=== PATIENT | female | born 1955 | race Hispanic/Latino ===

== ENCOUNTER 2024-12-23 13:36 | Emergency (ER) | payer OTHER ==
--- OUTSIDE RECORDS SUMMARY | 2024-12-23 13:40 | XMS REPORT | Continuity of Care Document ---
Author Name Unknown Address [address] [facility] [address] [place] [address] [facility] Address [address] [facility] [address] [place] [address] Care Team Providers Care Manager Instrumentation Name Role Phone Rachel Krueger MD Primary Care Physician [phone] Rachel Krueger Attending Clinician Unavailable Malissa Up Attending Clinician Unavailable NIMESH DOMINGUEZ Attending Clinician Unavailab Zeke Eason DPM Attending Clinician + [phone] ZEKE HAYNES Attending Clinician Unavail able MYA GONZALEZ Attending Clinician Unavailable Mya Gonzalez PA-C Attending Clinician [phone] Unknown, Attending Attending Clinician Unavailab NORMA Lainez Attending Clinician Unavailable Norma Lynn MD Attending Clinician [phone] Doctor Unassigned, [place] Attending Clinician U Nimesh Stubbs MD Attending Clinician [phone] Lee Ann Miramontes Attending Clinician [phone] LEE ANN KEVIN Attending Clinician Unavailable SATINDER WILKINS Attending Clinician Unavailable Therapy, [facility] Covid Infusion Attending Clinician Unavailable Satinder Wilkins MD Attending Clinician Edura Orosco Attending Clinician [phone] Only, [facility] Test Attending Clinician Unavailable Zoya Vieira MD Attending Clinician [phone] Lab, [facility] Fam Pob I Attending Clinician Unavailab ZOYA Calvillo Attending Clinician UnavailSerge Aguirre MD Attending Clinician [phone] NIMESH DOMINGUEZ Admitting Clinician Unavailab kaleigh Payers Payer Name Policy Type Policy Number Effective Date Expirati on Date Source [facility] [employer] [place] [id number] 2019 00:00:00 MEDICARE PART A \T\ B [id number] 2021 00:00:00 Memeoirs [id number] 2015 00:00:00 [employer] Medicare [id number] 2019 00:00:00 MEDICARE PART A AND B Medicare [id number] MEDICARE [place]OV[place] MB [id number] 2019 00:00:00 [facility] Medicare Replace [id number] 2020 00:00:00 [facility] Problems Condition Name Condition Details Condition Category Status Onset Date Resolution Date Last Treatment Date Treating Clinician Comments Source Keloid of skin Keloid of skin Disease Active 01-20 00:00: 00 Overview: Formattin g of this note might be different from the original. Added automatic ally from request for surgery [id number] [facility] Small bowel mass Small bowel mass Disease Active 10-05 00:00: 00 [facility] Perforated bowel Perforated bowel Disease Active 10-04 00:00: 00 [facility] Abdominal pain Abdominal pain Disease Active 10-04 00:00: 00 [facility] [id number] Mixed hyperlipid emia Problem [facility] Allergic rhinitis Non-season al allergic rhinitis, unspecifie d trigger Problem [facility] [id number] Moderate major depression Problem [facility] [id number] Depression with anxiety Problem [facility] [id number] Essential hypertensi on Problem [facility] [id number] Eye exam, routine Problem [facility] [id number] Gastroesop hageal reflux disease without esophagiti s Problem [facility] [id number] 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 Problem [facility] Generalize d osteoarthr itis Generalize d osteoarthr itis Problem [facility] [id number] Other chronic pain Problem [facility] Allergies, Adverse Reactions, Alerts Allergy Name Allergy Type Status Severity Reaction(s) Onset Date Inactive Date Treating Clinician Comments Source Codeine Propensi ty to adverse reaction s Active GI intolerance 10-12 00:00: 00 David Kim Codeine Propensi ty to adverse reaction s Active Nausea and/or Vomiting 10-04 00:00: 00 [facility] CODEINE DRUG INGREDI Active N/V 10-04 00:00: 00 [facility] Social History Social Habit Start Date Stop Date Quantity Comments Source ASSERTION Possible [facility] Gender identity Tiago ross Kim Sexual orientation [facility] History of Tobacco Use [facility] Sex Assigned At [facility] Alcohol intake 2023-12-22 00:00:00 2023-12-22 00:00:00 0 /d [facility] History of Social function 2023-12-22 00:00:00 2023-12-22 00:00:00 [facility] Exposure to SARS-CoV-2 (event) 2022-01-10 00:00:00 2022-01-20 13:05:00 Not sure [facility] Tobacco use and exposure 2021-10-29 00:00:00 2021-10-29 00:00:00 Smokeless tobacco non-user [facility] Smoking Status Start Date Stop Date Source Tobacco smoking consumption unknown [facility] Former Smoker 2024-09-13 00:00:00 2024-09-13 00:00:00 [facility] Current Smoker 2024-03-01 00:00:00 [facility] Occasional tobacco smoker 2021-10-29 00:00:00 [facility] Medications Ordered Medication Name Filled Medication Name Start Date Stop Date Current Medication? Ordering Clinician Indication Dosage Frequency Signature (SIG) Comments Components Source meloxicam (Mobic) 15 MG tablet meloxicam (Mobic) 15 MG tablet 10-12 00:00: 00 11-11 23:59 :00 Yes 15mg Q24H Take 1 tablet by mouth daily as needed for moderate pain (4-6) or mild pain (1-3). Only take if needed for foot pain David Kim Olopatadine HCl 0.2 % Olopatadine HCl 0.2 % 2023-09 00:00: 00 No 1{drop_ into_af fected_ eye} QD Olopatadin e HCl 0.2 % atorvastati n 20 mg tablet 12-21 13:58: 19 Yes 1 tablet Orally Once a day for 90 days [facility] losartan 50 mg tablet 12-21 13:58: 19 Yes TAKE 1 TABLET BY MOUTH TWICE DAILY for 90 days [facility] cetirizine 10 mg tablet 12-21 00:00: 00 Yes [id number] 10mg Take 1 tablet by mouth in the morning. [facility] fluticasone propionate 50 mcg/actuati on nasal spray 12-21 00:00: 00 Yes [id number] 2{spray } Use 2 Sprays in each nostril in the morning. [facility] albuterol 90 mcg/actuati on inhaler 05-10 00:00: 00 Yes [id number] 2{puff} Inhale 2 Puffs every 4 (four) hours as needed for Wheezing or Shortness of Breath. [facility] benzonatate 100 mg capsule 05-10 00:00: 00 Yes [id number] 100mg Take 1 capsule by mouth 3 (three) times daily as needed for Cough. [facility] dextrometho rphan-guaif enesin 10-100 mg/5 mL solution 05-10 00:00: 00 Yes [id number] 5mL Take 5 mL by mouth every 6 (six) hours as needed for Cough. [facility] ondansetron 4 mg disintegrat ing tablet 05-10 00:00: 00 Yes [id number] 4mg Take 1 tablet by mouth every 12 (twelve) hours as needed for Nausea and Vomiting (N/V). [facility] cephALEXin 500 mg capsule 03-05 00:00: 00 Yes [id number] 500mg Take 1 capsule by mouth 3 (three) times daily. [facility] naproxen sodium (ANAPROX) 220 mg tablet 10-23 11:21: 57 Yes 220mg Take 220 mg by mouth 2 (two) times daily with meals. [facility] acetaminoph en-codeine (TYLENOL #3) 300-30 mg tablet 10-10 00:00: 00 Yes 1{tbl} Take 1 Tab by mouth every 4 (four) hours as needed for Pain (scale 1-3). [facility] ibuprofen (MOTRIN) 800 mg tablet 10-10 00:00: 00 Yes 800mg Take 1 Tab by mouth every 6 (six) hours as needed for Pain (scale 1-3). [facility] cyclobenzap rine (FLEXERIL) 5 mg tablet 10-10 00:00: 00 Yes 5mg Take 1 Tab by mouth 3 (three) times daily as needed for Muscle Spasms. [facility] Triamcinolo ne Acetonide 0.1 % Triamcinolo ne Acetonide 0.1 % No 1{appli cation_ to_affe cted_ar ea} BID Triamcinol one Acetonide 0.1 % Ibuprofen 200 MG Ibuprofen 200 MG No TID Ibuprofen 200 MG Cetirizine HCl 10 MG Cetirizine HCl 10 MG No 1{table t} QD Cetirizine HCl 10 MG Fluticasone Propionate 50 MCG/ACT Fluticasone Propionate 50 MCG/ACT No 1{spray _in_eac h_nostr il} QD Fluticason e Propionate 50 MCG/ACT Immunizations Ordered Immunization Name Filled Immunization Name Date Status Comments Source Fluad (IIV) - SDS - 0.5mL Fluad (IIV) - SDS - 0.5mL 2021-07-11 10:22:00 Completed [facility] FluAD FluAD 2021-07-11 10:22:00 Completed [facility] FluAD FluAD 2021-07-11 10:22:00 Completed [facility] Prevnar 13 (PCV13) Prevnar 13 (PCV13) 2020-12-06 11:03:00 Completed [facility] Prevnar 13 (PCV13) Prevnar 13 (PCV13) 2020-12-06 11:03:00 Completed [facility] Prevnar 13 (PCV13) Prevnar 13 (PCV13) 2020-12-06 11:03:00 Completed [facility] Influenza Virus Vaccine Quad IM 3+ YRS 2015-10-10 00:00:00 Completed [facility] Influenza Virus Vaccine Quad IM 3+ YRS 2015-10-10 00:00:00 Completed [facility] Influenza Virus Vaccine Quad IM 3+ YRS 2015-10-10 00:00:00 Completed [facility] Influenza Virus Vaccine Quad IM 3+ YRS 2015-10-10 00:00:00 Completed [facility] Influenza Virus Vaccine Quad IM 3+ YRS Unknown Completed [facility] Influenza Virus Vaccine Quad IM 3+ YRS Unknown Completed [facility] FluAD FluAD Unknown Completed [facility] Prevnar 13 (PCV13) Prevnar 13 (PCV13) Unknown Completed [facility] FluAD FluAD Unknown Completed [facility] Prevnar 13 (PCV13) Prevnar 13 (PCV13) Unknown Completed [facility] FluAD FluAD Unknown Completed [facility] Prevnar 13 (PCV13) Prevnar 13 (PCV13) Unknown Completed [facility] FluAD FluAD Unknown Completed [facility] Prevnar 13 (PCV13) Prevnar 13 (PCV13) Unknown Completed [facility] FluAD FluAD Unknown Completed [facility] Prevnar 13 (PCV13) Prevnar 13 (PCV13) Unknown Completed [facility] FluAD FluAD Unknown Completed [facility] Prevnar 13 (PCV13) Prevnar 13 (PCV13) Unknown Completed [facility] FluAD FluAD Unknown Completed [facility] Prevnar 13 (PCV13) Prevnar 13 (PCV13) Unknown Completed [facility] FluAD FluAD Unknown Completed [facility] Prevnar 13 (PCV13) Prevnar 13 (PCV13) Unknown Completed [facility] FluAD FluAD Unknown Completed [facility] Prevnar 13 (PCV13) Prevnar 13 (PCV13) Unknown Completed [facility] FluAD FluAD Unknown Completed [facility] Prevnar 13 (PCV13) Prevnar 13 (PCV13) Unknown Completed [facility] FluAD FluAD Unknown Completed [facility] Prevnar 13 (PCV13) Prevnar 13 (PCV13) Unknown Completed [facility] Vital Signs Vital Name Observation Time Observation Value Comments S ource height 2024-09-16 13:40:00 63.00 [in_i] Com [facility] weight 2024-09-16 13:40:00 188 [lb_av] Comm on [facility] temperature 2024-09-16 13:40:00 97.1 [degF] Com [facility] bmi 2024-09-16 13:40:00 33.3 kg/m2 Commo n [facility] oximetry 2024-09-16 13:40:00 98 % Commo n [facility] respiratory rate 2024-09-16 13:40:00 16 /min [facility] blood pressure systolic 2024-09-16 13:40:00 142 mm[Hg] Common [facility] blood pressure diastolic 2024-09-16 13:40:00 80 mm[Hg] [facility] height 2024-06-14 14:00:00 63.00 [in_i] Com [facility] weight 2024-06-14 14:00:00 195 [lb_av] Comm on [facility] temperature 2024-06-14 14:00:00 97.5 [degF] Com [facility] bmi 2024-06-14 14:00:00 34.54 kg/m2 Comm on [facility] oximetry 2024-06-14 14:00:00 96 % Commo n [facility] respiratory rate 2024-06-14 14:00:00 16 /min [facility] blood pressure systolic 2024-06-14 14:00:00 132 mm[Hg] [facility] blood pressure diastolic 2024-06-14 14:00:00 76 mm[Hg] [facility] height 2024-06-14 14:00:00 63.00 [in_i] Com [facility] weight 2024-06-14 14:00:00 195 [lb_av] Comm on [facility] temperature 2024-06-14 14:00:00 97.5 [degF] Com [facility] bmi 2024-06-14 14:00:00 34.54 kg/m2 Comm on [facility] oximetry 2024-06-14 14:00:00 96 % Commo n [facility] respiratory rate 2024-06-14 14:00:00 16 /min [facility] blood pressure systolic 2024-06-14 14:00:00 132 mm[Hg] [facility] blood pressure diastolic 2024-06-14 14:00:00 76 mm[Hg] Common [facility] height 2024-03-09 15:40:00 63.00 [in_i] Com [facility] weight 2024-03-09 15:40:00 200 [lb_av] Comm on [facility] temperature 2024-03-09 15:40:00 97.2 [degF] Com [facility] bmi 2024-03-09 15:40:00 35.42 kg/m2 Comm on [facility] oximetry 2024-03-09 15:40:00 96 % Commo n [facility] respiratory rate 2024-03-09 15:40:00 16 /min [facility] blood pressure systolic 2024-03-09 15:40:00 136 mm[Hg] Common [facility] blood pressure diastolic 2024-03-09 15:40:00 82 mm[Hg] Common [facility] height 2024-02-01 14:00:00 63.00 [in_i] Com [facility] weight 2024-02-01 14:00:00 201.6 [lb_av] Co mmon [facility] temperature 2024-02-01 14:00:00 97.2 [degF] Com [facility] bmi 2024-02-01 14:00:00 35.71 kg/m2 Comm on [facility] oximetry 2024-02-01 14:00:00 99 % Commo n [facility] respiratory rate 2024-02-01 14:00:00 16 /min Common [facility] blood pressure systolic 2024-02-01 14:00:00 138 mm[Hg] Common [facility] blood pressure diastolic 2024-02-01 14:00:00 82 mm[Hg] Common [facility] height 2024-02-01 14:40:00 63.00 [in_i] Com [facility] weight 2024-02-01 14:40:00 201.6 [lb_av] Co mmon [facility] temperature 2024-02-01 14:40:00 97.2 [degF] Com mon [facility] bmi 2024-02-01 14:40:00 35.71 kg/m2 Comm on [facility] oximetry 2024-02-01 14:40:00 99 % Commo n [facility] respiratory rate 2024-02-01 14:40:00 16 /min Common [facility] blood pressure systolic 2024-02-01 14:40:00 138 mm[Hg] [facility] blood pressure diastolic 2024-02-01 14:40:00 82 mm[Hg] [facility] Systolic blood pressure 2023-12-22 18:58:00 158 mm[Hg] [facility] Diastolic blood pressure 2023-12-22 18:58:00 87 mm[Hg] [facility] Heart rate 2023-12-22 18:57:00 85 /min [facility] Body temperature 2023-12-22 18:57:00 36.56 [facility] Respiratory rate 2023-12-22 18:57:00 14 /min [facility] Body weight 2023-12-22 18:57:00 90.719 kg [facility] BMI 2023-12-22 18:57:00 37.79 kg/m2 [facility] Oxygen saturation in Arterial blood by Pulse oximetry 2023-12-22 18:57:00 95 /min [facility] height 2023-08-28 15:00:00 63.00 [in_i] Com [facility] weight 2023-08-28 15:00:00 196.2 [lb_av] Co mmon [facility] temperature 2023-08-28 15:00:00 97.2 [degF] Com [facility] bmi 2023-08-28 15:00:00 34.75 kg/m2 Comm on [facility] oximetry 2023-08-28 15:00:00 96 % Commo n [facility] respiratory rate 2023-08-28 15:00:00 16 /min Common [facility] blood pressure systolic 2023-08-28 15:00:00 132 mm[Hg] Common [facility] blood pressure diastolic 2023-08-28 15:00:00 72 mm[Hg] [facility] height 2023-05-28 11:20:00 63.00 [in_i] Com [facility] weight 2023-05-28 11:20:00 192.6 [lb_av] Co [facility] temperature 2023-05-28 11:20:00 97.0 [degF] Com [facility] bmi 2023-05-28 11:20:00 34.11 kg/m2 Comm on [facility] oximetry 2023-05-28 11:20:00 97 % Commo n [facility] respiratory rate 2023-05-28 11:20:00 16 /min Common [facility] blood pressure systolic 2023-05-28 11:20:00 128 mm[Hg] [facility] blood pressure diastolic 2023-05-28 11:20:00 78 mm[Hg] Common [facility] height 2023-02-27 13:00:00 63.00 [in_i] Com [facility] weight 2023-02-27 13:00:00 193.2 [lb_av] Co mmon [facility] bmi 2023-02-27 13:00:00 34.22 kg/m2 Comm on [facility] oximetry 2023-02-27 13:00:00 97 % Commo n [facility] respiratory rate 2023-02-27 13:00:00 16 /min Common [facility] blood pressure systolic 2023-02-27 13:00:00 134 mm[Hg] Common [facility] blood pressure diastolic 2023-02-27 13:00:00 78 mm[Hg] [facility] height 2023-01-07 09:00:00 63.00 [in_i] Com [facility] weight 2023-01-07 09:00:00 193 [lb_av] Comm on [facility] temperature 2023-01-07 09:00:00 98.0 [degF] Com [facility] bmi 2023-01-07 09:00:00 34.18 kg/m2 Comm on [facility] oximetry 2023-01-07 09:00:00 97 % Commo n [facility] respiratory rate 2023-01-07 09:00:00 17 /min [facility] blood pressure systolic 2023-01-07 09:00:00 134 mm[Hg] [facility] blood pressure diastolic 2023-01-07 09:00:00 82 mm[Hg] [facility] height 2023-01-07 09:00:00 63.00 [in_i] Com [facility] weight 2023-01-07 09:00:00 193 [lb_av] Comm on [facility] temperature 2023-01-07 09:00:00 98.0 [degF] Com [facility] bmi 2023-01-07 09:00:00 34.18 kg/m2 Comm on [facility] oximetry 2023-01-07 09:00:00 97 % Commo n [facility] respiratory rate 2023-01-07 09:00:00 17 /min Common [facility] blood pressure systolic 2023-01-07 09:00:00 134 mm[Hg] [facility] blood pressure diastolic 2023-01-07 09:00:00 82 mm[Hg] [facility] height 2022-08-11 11:00:00 63.00 [in_i] Com [facility] weight 2022-08-11 11:00:00 193.6 [lb_av] Co mmon [facility] temperature 2022-08-11 11:00:00 97.5 [degF] Com [facility] bmi 2022-08-11 11:00:00 34.29 kg/m2 Comm on [facility] oximetry 2022-08-11 11:00:00 97 % Commo n [facility] respiratory rate 2022-08-11 11:00:00 16 /min [facility] blood pressure systolic 2022-08-11 11:00:00 128 mm[Hg] Common [facility] blood pressure diastolic 2022-08-11 11:00:00 64 mm[Hg] [facility] height 2022-03-06 15:00:00 63.00 [in_i] Com [facility] weight 2022-03-06 15:00:00 191.2 [lb_av] Co mmon [facility] temperature 2022-03-06 15:00:00 98.8 [degF] Com [facility] bmi 2022-03-06 15:00:00 33.87 kg/m2 Comm on [facility] oximetry 2022-03-06 15:00:00 97 % Commo n [facility] respiratory rate 2022-03-06 15:00:00 17 /min Common [facility] blood pressure systolic 2022-03-06 15:00:00 124 mm[Hg] [facility] blood pressure diastolic 2022-03-06 15:00:00 76 mm[Hg] [facility] height 2022-03-06 16:00:00 63.00 [in_i] Com [facility] weight 2022-03-06 16:00:00 191.2 [lb_av] Co mmon [facility] temperature 2022-03-06 16:00:00 98.8 [degF] Com mon [facility] bmi 2022-03-06 16:00:00 33.87 kg/m2 Comm on [facility] oximetry 2022-03-06 16:00:00 97 % Commo n [facility] blood pressure systolic 2022-03-06 16:00:00 124 mm[Hg] Common [facility] blood pressure diastolic 2022-03-06 16:00:00 76 mm[Hg] [facility] height 2022-02-06 11:00:00 63.00 [in_i] Com [facility] weight 2022-02-06 11:00:00 189 [lb_av] Comm on [facility] temperature 2022-02-06 11:00:00 97.7 [degF] Com [facility] bmi 2022-02-06 11:00:00 33.48 kg/m2 Comm on [facility] oximetry 2022-02-06 11:00:00 97 % Commo n [facility] respiratory rate 2022-02-06 11:00:00 22 /min [facility] blood pressure systolic 2022-02-06 11:00:00 122 mm[Hg] [facility] blood pressure diastolic 2022-02-06 11:00:00 80 mm[Hg] [facility] Body weight 2022-01-20 19:00:00 85.73 kg [facility] BMI 2022-01-20 19:00:00 35.71 kg/m2 [facility] Systolic blood pressure 2022-01-20 18:19:00 144 mm[Hg] [facility] Diastolic blood pressure 2022-01-20 18:19:00 96 mm[Hg] [facility] Heart rate 2022-01-20 18:19:00 86 /min [facility] Respiratory rate 2022-01-20 18:19:00 18 /min [facility] Body height 2022-01-20 18:19:00 154.9 cm [facility] Oxygen saturation in Arterial blood by Pulse oximetry 2022-01-20 18:19:00 96 /min [facility] height 2021-11-14 08:00:00 63.00 [in_i] Com [facility] weight 2021-11-14 08:00:00 191 [lb_av] Comm on [facility] temperature 2021-11-14 08:00:00 97.7 [degF] Com [facility] bmi 2021-11-14 08:00:00 33.83 kg/m2 Comm on [facility] oximetry 2021-11-14 08:00:00 96 % Commo n [facility] respiratory rate 2021-11-14 08:00:00 18 /min [facility] blood pressure systolic 2021-11-14 08:00:00 138 mm[Hg] [facility] blood pressure diastolic 2021-11-14 08:00:00 82 mm[Hg] [facility] height 2021-07-11 10:00:00 63.00 [in_i] Com [facility] weight 2021-07-11 10:00:00 186 [lb_av] Comm on [facility] temperature 2021-07-11 10:00:00 97.8 [degF] Com [facility] bmi 2021-07-11 10:00:00 32.94 kg/m2 Comm on [facility] oximetry 2021-07-11 10:00:00 97 % Commo n [facility] respiratory rate 2021-07-11 10:00:00 19 /min [facility] blood pressure systolic 2021-07-11 10:00:00 158 mm[Hg] Common [facility] blood pressure diastolic 2021-07-11 10:00:00 91 mm[Hg] [facility] Procedures Procedure Date / Time Performed Performing Clinician Source REFERRAL- REQUEST/RESPONSE 2022-03-04 05:01:00 Doctor Unassigned, [place] [facility] INSURANCE CORRESPONDENCE 2021-11-15 06:01:00 Doc tor Unassigned, [place] [facility] Encounters Start Date/Time End Date/Time Encounter Type Admission Type Attending Clinicians Care Facility Care Department Encounter ID Source 2024-09-15 14:20:00 Outpatient KruegerRachel posada [facility] [id number] [facility] 2023-08-27 14:05:00 Outpatient KruegerRachel STLMLC STLMLC [id number] [facility] 2023-05-27 14:14:00 Outpatient Rachel Krueger STLMLC STLMLC [id number] [facility] 2022-12-22 15:50:00 Outpatient Rachel Krueger STLMLC STLMLC [id number] [facility] 2022-12-17 13:38:00 Outpatient Rachel Krueger STLMLC STLMLC [id number] [facility] 2022-10-28 15:30:02 Outpatient Rachel Krueger STLMLC STLMLC [id number] [facility] 2022-08-06 10:43:01 Outpatient Up Malissa STLMLC STLMLC [id number] 65445 [facility] 2022-03-12 12:16:07 Outpatient NIMESH SOLIS [facility] [id number] [facility] 2022-02-04 08:46:03 Outpatient Malissa Up STLMLC STLMLC [id number] [facility] 2022-01-20 14:20:12 Outpatient NIMESH DOMINGUEZ [facility] [id number] [facility] 2021-11-13 10:14:03 [facility] [id number] [facility] 2021-10-09 12:45:47 [facility]patient UpMalissa [facility] [id number] 02359 [facility] 2021-10-09 12:44:30 Outpatient UpMalissa anne [facility] [id number] [facility] 2021-07-15 18:31:35 Emergency [facility] [id number] [facility] 2024-11-16 00:00:00 2024-11-16 14:52:23 Refill IvyZeke [facility] 1.2.840.114 350.1.13.70 8.2.7.2.686 [id number] David [facility] 2024-10-26 13:32:30 2024-10-26 14:28:32 Outpatient Elective SELCHERYLTZEKE EOUT [facility] [id number] [facility] 2024-10-26 13:30:00 2024-10-26 14:28:32 Office Visit SelleonorZeke [facility] 1.2.840.114 350.1.13.70 8.2.7.2.686 [id number] [facility] 2024-10-12 13:40:00 2024-10-12 13:54:00 Consult IvyZeke Warren [facility] 1..840.114 350.1.13.70 8.2.7.2.686 [id number] David schwartz [facility] 2024-10-12 13:03:03 2024-10-12 13:54:00 Outpatient Elective SELBSZEKE Melgar MendelOUT MHEOUT [id number] [facility] 2024-09-26 14:11:53 2024-09-26 14:11:53 Outpatient Elective IVYZEKE MHEOUT EOUT [id number] [facility] 2024-09-16 00:00:00 2024-09-16 00:00:00 OFFICE VISIT ESTAB PT LEVEL 4 STLMLC STLMLC [id number] [facility] 2024-06-14 00:00:00 2024-06-14 00:00:00 OFFICE VISIT ESTAB PT LEVEL 4 STLMLC STLMLC [id number] [facility] 2024-04-07 00:00:00 2024-04-07 00:00:00 (TEL) STLMLC STLMLC [id number] [facility] 2024-04-05 00:00:00 2024-04-05 00:00:00 (TEL) STLMLC STLMLC [id number] [facility] 2024-03-24 00:00:00 2024-03-24 00:00:00 (TEL) STLMLC STLMLC [id number] [facility] 2024-03-09 00:00:00 2024-03-09 00:00:00 OFFICE VISIT ESTAB PT LEVEL 4 STLMLC STLMLC [id number] [facility] 2024-03-07 00:00:00 2024-03-07 00:00:00 (TEL) STLMLC STLMLC [id number] [facility] 2024-02-01 00:00:00 2024-02-01 00:00:00 SUB ANNUAL [facility] VISIT STLMLC STLMLC [id number] [facility] 2024-02-01 00:00:00 2024-02-01 00:00:00 OFFICE VISIT ESTAB PT LEVEL 4 STLMLC STLMLC [id number] [facility] 2023-12-22 13:40:00 2023-12-22 14:02:54 Outpatient MYA DURHAM [facility] [id number] [facility] 2023-12-22 13:40:00 2023-12-22 14:02:54 Urgent Care Mya Gonzalez Unknown, Attending [facility] 1.2.840.114 350.1.13.10 4.2.7.2.686 [id number] [facility] 2023-12-22 00:00:00 2023-12-22 00:00:00 Refill Mya Gonzalez [facility] 1.2.840.114 350.1.13.10 4.2.7.2.686 [id number] [facility] 2023-08-28 00:00:00 2023-08-28 00:00:00 OFFICE VISIT ESTAB PT LEVEL 4 STLMLC STLMLC [id number] [facility] 2023-05-28 00:00:00 2023-05-28 00:00:00 OFFICE VISIT ESTAB PT LEVEL 4 STLMLC STLMLC [id number] [facility] 2023-03-02 00:00:00 2023-03-02 00:00:00 (TEL) STLMLC STLMLC [id number] [facility] 2023-02-27 00:00:00 2023-02-27 00:00:00 OFFICE VISIT ESTAB PT LEVEL 4 STLMLC STLMLC [id number] [facility] 2023-02-27 00:00:00 2023-02-27 00:00:00 (TEL) STLMLC STLMLC [id number] [facility] 2023-01-07 00:00:00 2023-01-07 00:00:00 SUB ANNUAL [facility]LL[facility] VISIT STLMLC STLMLC [id number] [facility] 2023-01-07 00:00:00 2023-01-07 00:00:00 OFFICE VISIT ESTAB PT LEVEL 4 STLMLC STLMLC [id number] [facility] 2022-10-28 00:00:00 2022-10-28 00:00:00 (TEL) STLMLC STLMLC [id number] [facility] 2022-08-11 00:00:00 2022-08-11 00:00:00 OFFICE VISIT EST PT LEVEL 3 STLMLC STLMLC [id number] [facility] 2022-04-29 00:00:00 2022-04-29 00:00:00 (TEL) STLMLC STLMLC [id number] [facility] 2022-04-02 13:00:00 2022-04-02 13:00:00 Outpatient NORMA CAMARILLO [facility] [id number] [facility] 2022-03-25 11:00:00 2022-03-25 11:00:00 Outpatient NORMA CAMARILLO [facility] [id number] [facility] 2022-03-25 00:00:00 2022-03-25 00:00:00 Telephone Norma Lynn [facility] 1..840.114 350.1.13.10 4.2.7.2.686 [id number] [facility] 2022-03-06 00:00:00 2022-03-06 00:00:00 SUB ANNUAL [facility]LL[facility] VISIT STLMLC STLMLC [id number] [facility] 2022-03-06 00:00:00 2022-03-06 00:00:00 NO CHARGE STLMLC STLMLC [id number] [facility] 2022-03-04 00:00:00 2022-03-04 00:00:00 Orders Only Doctor Unassigned, [place] [facility] 1..840.114 350.1.13.10 4.2.7.2.686 [id number] [facility] 2022-02-27 00:00:00 2022-02-27 00:00:00 (TEL) STLMLC STLMLC [id number] [facility] 2022-02-06 00:00:00 2022-02-06 00:00:00 OFFICE VISIT EST PT LEVEL 3 STLMLC STLMLC [id number] [facility] 2022-01-20 14:15:00 2022-01-20 14:15:00 Outpatient NIMESH SOLIS [facility] [id number] [facility] 2022-01-20 14:15:00 2022-01-20 14:15:00 Office [facility] 1.0.114 350.1.13.10 4.2.7.2.686 [id number] [facility] 2022-01-20 14:15:00 2022-01-20 14:08:53 Outpatient NIMESH SOLIS [facility] [id number] [facility] 2021-11-28 00:00:00 2021-11-28 00:00[facility]00 [id number] 2021-11-28 00:00:00 2021-11-28 00:00:00 Orders Only Doctor Unassigned, [place] [facility] 1.0.114 350.1.13.10 4.2.7.2.686 [id number] [facility] 2021-11-15 00:00:00 2021-11-15 00:00:00 Orders Only Doctor Unassigned, [place] [facility] 1.0.114 350.1.13.10 4.2.7.2.686 [id number] [facility] 2021-11-14 00:00:00 2021-11-14 00:00:00 [facility] [id number] [facility] 2021-11-04 00:00:00 2021-11-04 00:00:00 Orders Only Doctor Unassigned, [place] [facility] 1.2840.114 350.1.13.10 4.2.7.2.686 [id number] [facility] 2021-11-01 00:00:00 2021-11-01 00:00:00 (TEL) STLMLC STLMLC [id number] [facility] 2021-10-29 14:20:00 2021-10-29 14:40:00 Urgent Care Lee Ann Kevin [facility] 1.840.114 350.1.13.10 4.2.7.2.686 [id number] [facility] 2021-10-29 14:20:00 2021-10-29 14:20:00 Outpatient R DORITA LEE ANN [facility] [id number] [facility] 2021-07-11 00:00:00 2021-07-11 00:00:00 OFFICE VISIT EST PT LEVEL 3 STLMLC STLMLC [id number] [facility] 2021-05-14 17:30:00 2021-05-14 17:30:00 Outpatient SATINDER SALCEDO [facility] [id number] [facility] 2021-05-14 17:30:00 2021-05-14 17:30:00 Outpatient SATINDER SALCEDO [facility] [id number] [facility] 2021-05-14 15:36:39 2021-05-14 16:36:39 Nurse Visit Therapy, Adc Covid Satinder Tarango [facility] 1.840.114 350.1.13.10 4.2.7.2.686 [id number] [facility] 2021-05-14 00:00:00 2021-05-14 00:00:00 Orders Only Doctor Unassigned, [place] [facility] 1.840.114 350.1.13.10 4.2.7.2.686 [id number] [facility] 2021-05-10 09:51:00 2021-05-10 11:01:00 Emergency Eduar Lawson [facility] 1.840.114 350.1.13.10 4.2.7.2.686 [id number] [facility] 2021-05-10 00:00:00 2021-05-10 00:00:00 Orders Only Doctor Unassigned, [place] [facility] 1.840.114 350.1.13.10 4.2.7.2.686 [id number] [facility] 2021-01-18 00:00:00 2021-01-18 00:00:00 Outpatient STLMLC STLMLC [id number] [facility] 2021-01-10 00:00:00 2021-01-10 00:00:00 Outpatient STLMLC STLMLC [id number] [facility] 2021-01-10 00:00:00 2021-01-10 00:00:00 Outpatient STLMLC STLMLC [id number] [facility] 2021-01-08 00:00:00 2021-01-08 00:00:00 Outpatient STLMLC STLMLC [id number] [facility] 2020-12-17 00:00:00 2020-12-17 00:00:00 Outpatient STLMLC STLMLC [id number] [facility] 2020-12-06 00:00:00 2020-12-06 00:00:00 Outpatient STLMLC STLMLC [id number] [facility] 2020-12-06 00:00:00 2020-12-06 00:00:00 Outpatient STLMLC STLMLC [id number] [facility] 2020-09-04 00:00:00 2020-09-04 00:00:00 Telephone Only, Adc Test [facility] 1.840.114 350.1.13.10 4.2.7.2.686 [id number] [facility] 2020-09-03 14:15:00 2020-09-03 14:15:00 Outpatient R [facility] [id number] [facility] 2020-09-03 13:42:30 2020-09-03 13:57:30 Laboratory Only Only, Adc Test Zoya Vieira [facility] 1.2.840.114 350.1.13.10 4.2.7.2.686 [id number] [facility] 2020-09-03 00:00:00 2020-09-03 00:00:00 Orders Only Doctor Unassigned, [place] [facility] 1.2.840.114 350.1.13.10 4.2.7.2.686 [id number] [facility] 2020-08-13 00:00:00 2020-08-13 00:00:00 Telephone Lab, Adc Fam Pob I [facility] 1.2840.114 350.1.13.10 4.2.7.2.686 [id number] [facility] 2020-08-06 15:00:27 2020-08-06 15:15:27 Laboratory Only Only, Adc Test [facility] 1.2.840.114 350.1.13.10 4.2.7.2.686 [id number] [facility] 2020-08-06 15:15:00 2020-08-06 15:15:00 Outpatient R ZOYA VIEIRA [facility] [id number] [facility] 2020-08-06 00:00:00 2020-08-06 00:00:00 Orders Only Doctor Unassigned, [place] [facility] 1.2.840.114 350.1.13.10 4.2.7.2.686 [id number] [facility] 2020-03-05 10:57:13 2020-03-05 11:39:00 Emergency Serge Moody [facility] 1.2.840.114 350.1.13.10 4.2.7.2.686 [id number] [facility] 2020-03-05 10:32:00 2020-03-05 10:32:00 Emergency X [facility] E[facility] [id number] [facility] 2020-03-05 00:00:00 2020-03-05 00:00:00 Orders Only Doctor Unassigned, [place] [facility] 1.2.840.114 350.1.13.10 4.2.7.2.686 [id number] [facility] Results Test Description Test Time Test Comments Results Result Co mments Source COMPREHENSIVE METABOLIC [id number] 00:00:00* Test Item Value Reference Range Interpretation Comme nts NUCLEATED RBCS (test code = 16404-2) 0.0 /100 WBC'S See_Comment [Automated message] The system which generated this result transmitted reference range: 0.0 /100 WBC'S. The reference range was not used to interpret this result as normal/abnormal. ABSOLUTE EOSINOPHILS (test code = 35089-6) 0.18 K/UL See_Comment [Automated message] The system which generated this result transmitted reference range: 0.00-0.50 K/UL. The reference range was not used to interpret this result as normal/abnormal. ABSOLUTE LYMPHOCYTES (test code = 11453-4) 1.82 K/UL See_Comment [Automated message] The system which generated this result transmitted reference range: 1.00-4.00 K/UL. The reference range was not used to interpret this result as normal/abnormal. ABSOLUTE MONOCYTES (test code = 16774-0) 0.51 K/UL See_Comment [Automated message] The system which generated this result transmitted reference range: 0.20-1.00 K/UL. The reference range was not used to interpret this result as normal/abnormal. ABSOLUTE NEUTROPHILS (test code = 66461-3) 5.08 K/UL See_Comment [Automated message] The system which generated this result transmitted reference range: 1.50-7.50 K/UL. The reference range was not used to interpret this result as normal/abnormal. BASOPHILS (test code = 40884-8) 0.7 % EOSINOPHILS (test code = 80991-3) 2.3 % HEMATOCRIT (test code = 75670-4) 40.3 % See_Comment [Automated messa ge] The system which generated this result transmitted reference range: 34.0-45.0 %. The reference range was not used to interpret this result as normal/abnormal. HEMOGLOBIN (test code = 718-7) 13.3 G/DL See_Comment [Automated messa ge] The system which generated this result transmitted reference range: 11.5-15.5 G/DL. The reference range was not used to interpret this result as normal/abnormal. LYMPHOCYTES (test code = 32857-2) 23.7 % MCH (test code = 31108-6) 30.8 PG See_Comment [Automated messa ge] The system which generated this result transmitted reference range: 25.0-33.0 PG. The reference range was not used to interpret this result as normal/abnormal. MCHC (test code = 05060-7) 33.0 G/DL See_Comment [Automated messa ge] The system which generated this result transmitted reference range: 31.0-36.0 G/DL. The reference range was not used to interpret this result as normal/abnormal. MCV (test code = 20804-8) 93.3 fL See_Comment [Automated messa ge] The system which generated this result transmitted reference range: 80.0-99.0 fL. The reference range was not used to interpret this result as normal/abnormal. MONOCYTES (test code = 81275-9) 6.6 % NEUTROPHILS (test code = 73732-5) 66.3 % PLATELET COUNT (test code = 14364-3) 339 K/UL See_Comment [Automated messa ge] The system which generated this result transmitted reference range: 130-400 K/UL. The reference range was not used to interpret this result as normal/abnormal. RBC (test code = 60511-6) 4.32 M/UL See_Comment [Automated messa ge] The system which generated this result transmitted reference range: 3.80-5.40 M/UL. The reference range was not used to interpret this result as normal/abnormal. RDW (test code = 32736-4) 11.9 % See_Comment [Automated messa ge] The system which generated this result transmitted reference range: 11.5-15.0 %. The reference range was not used to interpret this result as normal/abnormal. WBC (test code = 82760-3) 7.7 K/UL See_Comment [Automated makexyza ge] The system which generated this result transmitted reference range: 3.5-11.0 K/UL. The reference range was not used to interpret this result as normal/abnormal. VITAMIN D, 25 OH (test code = 1988-11) 30 NG/ML SEE BELOW NG/ML CALC LDL CHOL (test code = 93439-5) 69 MG/DL See_Comment [Automated makexyza ge] The system which generated this result transmitted reference range: <100 MG/DL. The reference range was not used to interpret this result as normal/abnormal. CHOLESTEROL (test code = 2093-3) 177 MG/DL See_Comment [Automated makexyza ge] The system which generated this result transmitted reference range: <200 MG/DL. The reference range was not used to interpret this result as normal/abnormal. HDL CHOLESTEROL (test code = 2085-9) 85 MG/DL See_Comment [Automated makexyza ge] The system which generated this result transmitted reference range: >39 MG/DL. The reference range was not used to interpret this result as normal/abnormal. RISK RATIO LDL/HDL (test code = 38692-3) 0.81 RATIO See_Comment [Automated message] The system which generated this result transmitted reference range: <3.22 RATIO. The reference range was not used to interpret this result as normal/abnormal. TRIGLYCERIDES (test code = 2571-8) 147 MG/DL See_Comment [Automated makexyza ge] The system which generated this result transmitted reference range: <150 MG/DL. The reference range was not used to interpret this result as normal/abnormal. ALBUMIN (test code = 1751-7) 4.5 G/DL See_Comment [Automated makexyza ge] The system which generated this result transmitted reference range: 3.5-5.2 G/DL. The reference range was not used to interpret this result as normal/abnormal. ALKALINE PHOSPHATASE (test code = 6768-6) 91 U/L See_Comment [Automated message] The system which generated this result transmitted reference range: 40-142 U/L. The reference range was not used to interpret this result as normal/abnormal. BILIRUBIN, TOTAL (test code = 1975-2) 0.9 MG/DL See_Comment [Automated messa ge] The system which generated this result transmitted reference range: <=1.2 MG/DL. The reference range was not used to interpret this result as normal/abnormal. BUN (test code = 3094-0) 12 MG/DL See_Comment [Automated messa ge] The system which generated this result transmitted reference range: 8-23 MG/DL. The reference range was not used to interpret this result as normal/abnormal. CALCIUM (test code = 57979-7) 10.2 MG/DL See_Comment [Automated messa ge] The system which generated this result transmitted reference range: 8.5-10.5 MG/DL. The reference range was not used to interpret this result as normal/abnormal. CALC A/G RATIO (test code = 1759-0) 1.7 RATIO See_Comment [Automated messa ge] The system which generated this result transmitted reference range: 1.0-2.6 RATIO. The reference range was not used to interpret this result as normal/abnormal. CALC BUN/CREAT (test code = 3097-3) 13 RATIO See_Comment [Automated messa ge] The system which generated this result transmitted reference range: 6-28 RATIO. The reference range was not used to interpret this result as normal/abnormal. CALC GLOBULIN (test code = 20274-8) 2.6 G/DL See_Comment [Automated messa ge] The system which generated this result transmitted reference range: 1.9-3.7 G/DL. The reference range was not used to interpret this result as normal/abnormal. CARBON DIOXIDE (test code = 1963-8) 28 MEQ/L See_Comment [Automated messa ge] The system which generated this result transmitted reference range: 19-31 MEQ/L. The reference range was not used to interpret this result as normal/abnormal. CHLORIDE (test code = 2075-0) 104 MEQ/L See_Comment [Automated messa ge] The system which generated this result transmitted reference range: 95-107 MEQ/L. The reference range was not used to interpret this result as normal/abnormal. CREATININE (test code = 2160-0) 0.95 MG/DL See_Comment [Automated messa ge] The system which generated this result transmitted reference range: 0.60-1.30 MG/DL. The reference range was not used to interpret this result as normal/abnormal. eGFR (2020 CKD-EPI) (test code = 17103-2) 65 ML/MIN/1.73 See_Comment [Automated message] The system which generated this result transmitted reference range: >60 ML/MIN/1.73. The reference range was not used to interpret this result as normal/abnormal. GLUCOSE (test code = 1558-6) 128 MG/DL See_Comment H [Automated messa ge] The system which generated this result transmitted reference range: 70-99 MG/DL. The reference range was not used to interpret this result as normal/abnormal. POTASSIUM (test code = 2823-3) 4.6 MEQ/L See_Comment [Automated messa ge] The system which generated this result transmitted reference range: 3.5-5.4 MEQ/L. The reference range was not used to interpret this result as normal/abnormal. PROTEIN, TOTAL (test code = 2885-2) 7.1 G/DL See_Comment [Automated messa ge] The system which generated this result transmitted reference range: 6.1-8.3 G/DL. The reference range was not used to interpret this result as normal/abnormal. AST (test code = 1920-8) 24 U/L See_Comment [Automated messa ge] The system which generated this result transmitted reference range: 9-40 U/L. The reference range was not used to interpret this result as normal/abnormal. ALT (test code = 1742-6) 24 U/L See_Comment [Automated messa ge] The system which generated this result transmitted reference range: 5-40 U/L. The reference range was not used to interpret this result as normal/abnormal. SODIUM (test code = 2951-2) 146 MEQ/L See_Comment [Automated messa ge] The system which generated this result transmitted reference range: 133-146 MEQ/L. The reference range was not used to interpret this result as normal/abnormal. [id number] 00:00:00resultHEMOGLOBIN [id number] 00:00:00* Test Item Value Reference Range Interpretation Comme nts HEMOGLOBIN A1c (test code = 4548-4) 5.9 % See_Comment H [Automated messa ge] The system which generated this result transmitted reference range: 4.2-5.6 %. The reference range was not used to interpret this result as normal/abnormal. CBC W/AUTO [id number] 00:00:00* Test Item Value Reference Range Interpretation Comme nts NUCLEATED RBCS (test code = 46014-2) 0.0 /100 WBC'S See_Comment [Automated messa ge] The system which generated this result transmitted reference range: 0.0 /100 WBC'S. The reference range was not used to interpret this result as normal/abnormal. ABSOLUTE EOSINOPHILS (test code = 46641-1) 0.06 K/UL See_Comment [Automated messa ge] The system which generated this result transmitted reference range: 0.00-0.50 K/UL. The reference range was not used to interpret this result as normal/abnormal. ABSOLUTE LYMPHOCYTES (test code = 15532-7) 1.80 K/UL See_Comment [Automated messa ge] The system which generated this result transmitted reference range: 1.00-4.00 K/UL. The reference range was not used to interpret this result as normal/abnormal. ABSOLUTE MONOCYTES (test code = 23378-0) 0.56 K/UL See_Comment [Automated messa ge] The system which generated this result transmitted reference range: 0.20-1.00 K/UL. The reference range was not used to interpret this result as normal/abnormal. ABSOLUTE NEUTROPHILS (test code = 28328-1) 4.90 K/UL See_Comment [Automated messa ge] The system which generated this result transmitted reference range: 1.50-7.50 K/UL. The reference range was not used to interpret this result as normal/abnormal. BASOPHILS (test code = 79917-3) 0.7 % EOSINOPHILS (test code = 34246-8) 0.8 % HEMATOCRIT (test code = 57531-0) 39.7 % See_Comment [Automated messa ge] The system which generated this result transmitted reference range: 34.0-45.0 %. The reference range was not used to interpret this result as normal/abnormal. HEMOGLOBIN (test code = 718-7) 13.4 G/DL See_Comment [Automated messa ge] The system which generated this result transmitted reference range: 11.5-15.5 G/DL. The reference range was not used to interpret this result as normal/abnormal. LYMPHOCYTES (test code = 48091-7) 24.2 % MCH (test code = 91316-4) 33.2 PG See_Comment H [Automated messa ge] The system which generated this result transmitted reference range: 25.0-33.0 PG. The reference range was not used to interpret this result as normal/abnormal. MCHC (test code = 49989-5) 33.8 G/DL See_Comment [Automated messa ge] The system which generated this result transmitted reference range: 31.0-36.0 G/DL. The reference range was not used to interpret this result as normal/abnormal. MCV (test code = 09289-4) 98.3 fL See_Comment [Automated messa ge] The system which generated this result transmitted reference range: 80.0-99.0 fL. The reference range was not used to interpret this result as normal/abnormal. MONOCYTES (test code = 62410-5) 7.5 % NEUTROPHILS (test code = 81555-4) 66.0 % PLATELET COUNT (test code = 11794-0) 298 K/UL See_Comment [Automated messa ge] The system which generated this result transmitted reference range: 130-400 K/UL. The reference range was not used to interpret this result as normal/abnormal. RBC (test code = 75222-5) 4.04 M/UL See_Comment [Automated messa ge] The system which generated this result transmitted reference range: 3.80-5.40 M/UL. The reference range was not used to interpret this result as normal/abnormal. RDW (test code = 91999-3) 12.5 % See_Comment [Automated messa ge] The system which generated this result transmitted reference range: 11.5-15.0 %. The reference range was not used to interpret this result as normal/abnormal. WBC (test code = 31298-9) 7.4 K/UL See_Comment [Automated messa ge] The system which generated this result transmitted reference range: 3.5-11.0 K/UL. The reference range was not used to interpret this result as normal/abnormal. CBC W/AUTO [id number] 00:00:00* Test Item Value Reference Range Interpretation Comme nts NUCLEATED RBCS (test code = 98500-0) 0.0 /100 WBC'S See_Comment [Automated messa ge] The system which generated this result transmitted reference range: 0.0 /100 WBC'S. The reference range was not used to interpret this result as normal/abnormal. ABSOLUTE EOSINOPHILS (test code = 42228-6) 0.06 K/UL See_Comment [Automated messa ge] The system which generated this result transmitted reference range: 0.00-0.50 K/UL. The reference range was not used to interpret this result as normal/abnormal. ABSOLUTE LYMPHOCYTES (test code = 33128-5) 1.85 K/UL See_Comment [Automated messa ge] The system which generated this result transmitted reference range: 1.00-4.00 K/UL. The reference range was not used to interpret this result as normal/abnormal. ABSOLUTE MONOCYTES (test code = 74341-3) 0.47 K/UL See_Comment [Automated messa ge] The system which generated this result transmitted reference range: 0.20-1.00 K/UL. The reference range was not used to interpret this result as normal/abnormal. ABSOLUTE NEUTROPHILS (test code = 31120-4) 3.20 K/UL See_Comment [Automated messa ge] The system which generated this result transmitted reference range: 1.50-7.50 K/UL. The reference range was not used to interpret this result as normal/abnormal. BASOPHILS (test code = 07546-6) 0.9 % EOSINOPHILS (test code = 03741-7) 1.1 % HEMATOCRIT (test code = 04901-1) 41.0 % See_Comment [Automated messa ge] The system which generated this result transmitted reference range: 34.0-45.0 %. The reference range was not used to interpret this result as normal/abnormal. HEMOGLOBIN (test code = 718-7) 14.0 G/DL See_Comment [Automated messa ge] The system which generated this result transmitted reference range: 11.5-15.5 G/DL. The reference range was not used to interpret this result as normal/abnormal. LYMPHOCYTES (test code = 77139-3) 32.7 % MCH (test code = 99605-6) 32.4 PG See_Comment [Automated messa ge] The system which generated this result transmitted reference range: 25.0-33.0 PG. The reference range was not used to interpret this result as normal/abnormal. MCHC (test code = 44643-9) 34.1 G/DL See_Comment [Automated messa ge] The system which generated this result transmitted reference range: 31.0-36.0 G/DL. The reference range was not used to interpret this result as normal/abnormal. MCV (test code = 33693-1) 94.9 fL See_Comment [Automated messa ge] The system which generated this result transmitted reference range: 80.0-99.0 fL. The reference range was not used to interpret this result as normal/abnormal. MONOCYTES (test code = 31220-9) 8.3 % NEUTROPHILS (test code = 24975-4) 56.6 % PLATELET COUNT (test code = 88667-8) 278 K/UL See_Comment [Automated messa ge] The system which generated this result transmitted reference range: 130-400 K/UL. The reference range was not used to interpret this result as normal/abnormal. RBC (test code = 05006-6) 4.32 M/UL See_Comment [Automated messa ge] The system which generated this result transmitted reference range: 3.80-5.40 M/UL. The reference range was not used to interpret this result as normal/abnormal. RDW (test code = 29012-9) 12.9 % See_Comment [Automated messa ge] The system which generated this result transmitted reference range: 11.5-15.0 %. The reference range was not used to interpret this result as normal/abnormal. WBC (test code = 90171-7) 5.7 K/UL See_Comment [Automated messa ge] The system which generated this result transmitted reference range: 3.5-11.0 K/UL. The reference range was not used to interpret this result as normal/abnormal. CBC W/AUTO [id number] 00:00:00* Test Item Value Reference Range Interpretation Comme nts NUCLEATED RBCS (test code = 05338-0) 0.0 /100 WBC'S See_Comment [Automated messa ge] The system which generated this result transmitted reference range: 0.0 /100 WBC'S. The reference range was not used to interpret this result as normal/abnormal. ABSOLUTE EOSINOPHILS (test code = 31954-6) 0.09 K/UL See_Comment [Automated messa ge] The system which generated this result transmitted reference range: 0.00-0.50 K/UL. The reference range was not used to interpret this result as normal/abnormal. ABSOLUTE LYMPHOCYTES (test code = 21940-6) 2.10 K/UL See_Comment [Automated messa ge] The system which generated this result transmitted reference range: 1.00-4.00 K/UL. The reference range was not used to interpret this result as normal/abnormal. ABSOLUTE MONOCYTES (test code = 38952-1) 0.52 K/UL See_Comment [Automated messa ge] The system which generated this result transmitted reference range: 0.20-1.00 K/UL. The reference range was not used to interpret this result as normal/abnormal. ABSOLUTE NEUTROPHILS (test code = 92748-9) 3.49 K/UL See_Comment [Automated messa ge] The system which generated this result transmitted reference range: 1.50-7.50 K/UL. The reference range was not used to interpret this result as normal/abnormal. BASOPHILS (test code = 26376-1) 1.1 % EOSINOPHILS (test code = 54542-0) 1.4 % HEMATOCRIT (test code = 77263-7) 39.9 % See_Comment [Automated messa ge] The system which generated this result transmitted reference range: 34.0-45.0 %. The reference range was not used to interpret this result as normal/abnormal. HEMOGLOBIN (test code = 718-7) 13.8 G/DL See_Comment [Automated messa ge] The system which generated this result transmitted reference range: 11.5-15.5 G/DL. The reference range was not used to interpret this result as normal/abnormal. LYMPHOCYTES (test code = 73300-1) 33.3 % MCH (test code = 16878-0) 31.4 PG See_Comment [Automated messa ge] The system which generated this result transmitted reference range: 25.0-33.0 PG. The reference range was not used to interpret this result as normal/abnormal. MCHC (test code = 77871-4) 34.6 G/DL See_Comment [Automated messa ge] The system which generated this result transmitted reference range: 31.0-36.0 G/DL. The reference range was not used to interpret this result as normal/abnormal. MCV (test code = 94115-4) 90.9 fL See_Comment [Automated messa ge] The system which generated this result transmitted reference range: 80.0-99.0 fL. The reference range was not used to interpret this result as normal/abnormal. MONOCYTES (test code = 73380-0) 8.3 % NEUTROPHILS (test code = 53632-4) 55.4 % PLATELET COUNT (test code = 13882-7) 303 K/UL See_Comment [Automated messa ge] The system which generated this result transmitted reference range: 130-400 K/UL. The reference range was not used to interpret this result as normal/abnormal. RBC (test code = 96306-2) 4.39 M/UL See_Comment [Automated messa ge] The system which generated this result transmitted reference range: 3.80-5.40 M/UL. The reference range was not used to interpret this result as normal/abnormal. RDW (test code = 03185-5) 12.6 % See_Comment [Automated messa ge] The system which generated this result transmitted reference range: 11.5-15.0 %. The reference range was not used to interpret this result as normal/abnormal. WBC (test code = 18156-3) 6.3 K/UL See_Comment [Automated messa ge] The system which generated this result transmitted reference range: 3.5-11.0 K/UL. The reference range was not used to interpret this result as normal/abnormal. Hemoglobin [id number] 00:00:00* Test Item Value Reference Range Interpretation Comme nts Hemoglobin A1c (test code = 4548-4) 5.6 4.8-5.6 3D SCR LIZY BILAT W/CAD3D SCR LIZY BILAT W/CADDEXA, BONE DENSITY AXIAL SKELEDEXA, BONE DENSITY AXIAL SKELE Notes Date/Time Note Provider Source 2024-11-16 14:52:33 [facility]2025-03-05 14:[facility]33 [id number] 14:28:53* Zeke Haynes, JOSE - 10/26/2024 1:30 PM CARDIAC TECHNICIAN CHIEF COMPLAINT: ARTHRITIS, DIFFUSE BILATERAL FEET HISTORY OF PRESENT ILLNESS: Patient states significant improvements the pain with medication Patient states very satisfied with treatment plan results Patient denies infection, injury, wounds Patient states pain currently rated 1/10 on palpation with range of motion, diffuse bilateral feet --- Patient states has slowly developed worsening arthritis, globally, starting approximately 2022 Patient states worsening pain and decreased range of motion, BILATERAL 1ST METATARSOPHALANGEAL JOINT Patient denies recent injury or other event to elicit symptoms Patient states pain currently rated 4/10 on palpation and with range of motion, BILATERAL FEET PHYSICAL EXAM OF THE LOWER EXTREMITY: Vascular (-) edema (-) ecchymosis (-) erythema Dorsal pedis pulse, bilateral - 2/4; Posterior tibial pulse, bilateral- 2/4 Capillary Refill time: within normal limits (-) varicosities (+) pedal hair growth Neurological (+) sensation with 5.07 Charlotte Sagrario monofilament to the most distal lower extremity (-) tinel's sign (-) clonus present Dermatological (-) signs of soft tissue infection, (-) open wounds, (-) abscess (-) other primary or secondary lesions (+) normal temperature when compared to contralateral limb (+) normal color, tugor, and elasticity Musculoskeletal (+) mild pain on palpation and with range of motion, 1st metatarsophalangeal joint (+) mild pain with impaction of the 1st metatarsal phalangeal joint (+) large osteophyte exostosis, bilateral 1st metatarsophalangeal joint (+) arthritic crepitation during range of motion, 1st metatarsal phalangeal joint (+) limited dorsiflexion range of motion, < 10degrees dorsiflexion ASSESSMENT: Arthritis, bilateral feet Hallux rigidus, bilateral TREATMENT PLAN: - Extensive visit discussing causes of arthritis and reasons to treat the complication to avoid pain and mobility - Discussion - Informed about conservative and surgical options, will attempt conservative treatments 1st with padding, support, and shoe gear modification before considering surgical intervention. - X-rays - PENDING PREVIOUSLY ORDERED 10/12/2024 - pain - continue previously ordered 10/12/2024 MELOXICAM - Return 2 weeks for imaging review, consider injection, custom orthotics, surgery Patient advised to report to my clinic or the emergency room immediately with any questions or concerns.Patient Instructions: Discussion: A detailed discussion was provided to the patient with specific reference to etiology, pathology,alternate treatment options, and prognosis. All risks and complications (including side effects) with eachtreatment/medication alternative were outlined in detail including but not limited to: Pain, swelling, numbness,loss of function, loss of limb, bleeding, hematoma, scarring, failure to relieve condition, surgery, additional/revisional surgery, reflex sympathetic dystrophy, complex regional pain syndrome, reoccurrence of deformity,joint stiffness, flail toe, bone and/or soft tissue infection, blood clots, pulmonary embolism, possible ,delayed or non-healing. X-rays, graphs and drawings were all used to assist with patient comprehension whenappropriate. All patients questions were answered and stated they fully understood. No guarantee as to resultsor outcome of treatment was made. I have discussed with the patient or legally responsible person prior toobtaining consent: the risks, potential benefits and drawbacks, significant alternatives, potential for problemsrelated to recuperation, likelihood of success, and possible results of non-treatment, and the patient or thelegally responsible person has agreed to proceed. IAC TECHNICIAN [place] [id number] 14:28:53 [place] 01930-02-12 14:28:53 Diagnosis Abnormal foot finding - Prim cici [place] [id number] 14:28:53 [place] 0[address]-02-12 14:28:52* Zeke Haynes DPM - 10/26/2024 1:30 PM CARDIAC TECHNICIAN CHIEF COMPLAINT: ARTHRITIS, DIFFUSE BILATERAL FEET HISTORY OF PRESENT ILLNESS: Patient states significant improvements the pain with medication Patient states very satisfied with treatment plan results Patient denies infection, injury, wounds Patient states pain currently rated 1/10 on palpation with range of motion, diffuse bilateral feet --- Patient states has slowly developed worsening arthritis, globally, starting approximately 2022 Patient states worsening pain and decreased range of motion, BILATERAL 1ST METATARSOPHALANGEAL JOINT Patient denies recent injury or other event to elicit symptoms Patient states pain currently rated 4/10 on palpation and with range of motion, BILATERAL FEET PHYSICAL EXAM OF THE LOWER EXTREMITY: Vascular (-) edema (-) ecchymosis (-) erythema Dorsal pedis pulse, bilateral - 2/4; Posterior tibial pulse, bilateral- 2/4 Capillary Refill time: within normal limits (-) varicosities (+) pedal hair growth Neurological (+) sensation with 5.07 Charlotte Sagrario monofilament to the most distal lower extremity (-) tinel's sign (-) clonus present Dermatological (-) signs of soft tissue infection, (-) open wounds, (-) abscess (-) other primary or secondary lesions (+) normal temperature when compared to contralateral limb (+) normal color, tugor, and elasticity Musculoskeletal (+) mild pain on palpation and with range of motion, 1st metatarsophalangeal joint (+) mild pain with impaction of the 1st metatarsal phalangeal joint (+) large osteophyte exostosis, bilateral 1st metatarsophalangeal joint (+) arthritic crepitation during range of motion, 1st metatarsal phalangeal joint (+) limited dorsiflexion range of motion, < 10degrees dorsiflexion ASSESSMENT: Arthritis, bilateral feet Hallux rigidus, bilateral TREATMENT PLAN: - Extensive visit discussing causes of arthritis and reasons to treat the complication to avoid pain and mobility - Discussion - Informed about conservative and surgical options, will attempt conservative treatments 1st with padding, support, and shoe gear modification before considering surgical intervention. - X-rays - PENDING PREVIOUSLY ORDERED 10/12/2024 - pain - continue previously ordered 10/12/2024 MELOXICAM - Return 2 weeks for imaging review, consider injection, custom orthotics, surgery Patient advised to report to my clinic or the emergency room immediately with any questions or concerns.Patient Instructions: Discussion: A detailed discussion was provided to the patient with specific reference to etiology, pathology,alternate treatment options, and prognosis. All risks and complications (including side effects) with eachtreatment/medication alternative were outlined in detail including but not limited to: Pain, swelling, numbness,loss of function, loss of limb, bleeding, hematoma, scarring, failure to relieve condition, surgery, additional/revisional surgery, reflex sympathetic dystrophy, complex regional pain syndrome, reoccurrence of deformity,joint stiffness, flail toe, bone and/or soft tissue infection, blood clots, pulmonary embolism, possible ,delayed or non-healing. X-rays, graphs and drawings were all used to assist with patient comprehension whenappropriate. All patients questions were answered and stated they fully understood. No guarantee as to resultsor outcome of treatment was made. I have discussed with the patient or legally responsible person prior toobtaining consent: the risks, potential benefits and drawbacks, significant alternatives, potential for problemsrelated to recuperation, likelihood of success, and possible results of non-treatment, and the patient or thelegally responsible person has agreed to proceed. IAC TECHNICIAN [facility] [id number] 14:28:52 [place] 719705-02-12 14:28:52 Diagnosis Abnormal foot finding - Prim cici [facility] [id number] 14:28:52 [place] 719705-01-29 13:59:08Upcoming Encounters Health Maintenance Due Date Last Done Comments Bone Density Scan 1954 CT Colonography 1954 Colonoscopy 1954 FIT 1954 FOBT 1954 Lipid Panel 1954 Medicare Annual Wellness (AWV) 1954 Sigmoidoscopy 1954 Annual Physical 1957 DTaP/Tdap/Td Vaccines (1 - Tdap) 1973 Mammogram 1994 Zoster Vaccines (1 of 2) 2004 Pneumococcal Vaccine: 65+ Years (1 of 1 - PCV) 2019 Influenza Vaccine (#1) 2024 10/10/2015 Colorectal Cancer Screening 03/14/2027 FIT-DNA 03/14/2027 03/14/2024, 03/14/2024, 02/18/2021 Respiratory Syncytial Virus (RSV) or >=60 (1 - 1-dose 75+ series) 2029 HIB Vaccines Aged Out No longer eligi ble based on patient's age to complete this topic HPV Vaccines Aged Out No longer eligi ble based on patient's age to complete this topic Hepatitis A Vaccines Aged Out No long er eligible based on patient's age to complete this topic Hepatitis B Vaccines Aged Out No long er eligible based on patient's age to complete this topic IPV Vaccines Aged Out No longer eligi ble based on patient's age to complete this topic Meningococcal Vaccine Aged Out No gee christelle eligible based on patient's age to complete this topic Rotavirus Vaccines Aged Out No longer eligible based on patient's age to complete this topic [facility] [id number] 13:59:08 Diagnosis Abnormal foot finding - Morena bolanos [facility] [id number] 13:59:08 [facility] [id number] 13:59:08* Zeke Haynes, JOSE - 10/12/2024 1:40 PM CARDIAC TECHNICIAN CHIEF COMPLAINT: ARTHRITIS, DIFFUSE BILATERAL FEET HISTORY OF PRESENT ILLNESS: Patient states has slowly developed worsening arthritis, globally, starting approximately 2022 Patient states worsening pain and decreased range of motion, BILATERAL 1ST METATARSOPHALANGEAL JOINT Patient denies recent injury or other event to elicit symptoms Patient states pain currently rated 4/10 on palpation and with range of motion, BILATERAL FEET PHYSICAL EXAM OF THE LOWER EXTREMITY: Vascular (-) edema (-) ecchymosis (-) erythema Dorsal pedis pulse, bilateral - 2/4; Posterior tibial pulse, bilateral- 2/4 Capillary Refill time: within normal limits (-) varicosities (+) pedal hair growth Neurological (+) sensation with 5.07 Charlotte Sagrario monofilament to the most distal lower extremity (-) tinel's sign (-) clonus present Dermatological (-) signs of soft tissue infection, (-) open wounds, (-) abscess (-) other primary or secondary lesions (+) normal temperature when compared to contralateral limb (+) normal color, tugor, and elasticity Musculoskeletal (+) pain on palpation and with range of motion, 1st metatarsophalangeal joint (+) pain with impaction of the 1st metatarsal phalangeal joint (+) large osteophyte exostosis, bilateral 1st metatarsophalangeal joint (+) arthritic crepitation during range of motion, 1st metatarsal phalangeal joint (+) limited dorsiflexion range of motion, < 10degrees dorsiflexion ASSESSMENT: Arthritis, bilateral feet Hallux rigidus, bilateral TREATMENT PLAN: - Extensive visit WITH SISTER discussing causes of arthritis and reasons to treat the complication to avoid pain and mobility - Discussion - Informed about conservative and surgical options, will attempt conservative treatments 1st with padding, support, and shoe gear modification before considering surgical intervention. - X-rays - ORDERED 10/12/2024 - pain - ORDERED 10/12/2024 MELOXICAM - Return 2 weeks for imaging review, consider injection, custom orthotics, surgery Patient advised to report to my clinic or the emergency room immediately with any questions or concerns.Patient Instructions: Discussion: A detailed discussion was provided to the patient with specific reference to etiology, pathology,alternate treatment options, and prognosis. All risks and complications (including side effects) with eachtreatment/medication alternative were outlined in detail including but not limited to: Pain, swelling, numbness,loss of function, loss of limb, bleeding, hematoma, scarring, failure to relieve condition, surgery, additional/revisional surgery, reflex sympathetic dystrophy, complex regional pain syndrome, reoccurrence of deformity,joint stiffness, flail toe, bone and/or soft tissue infection, blood clots, pulmonary embolism, possible ,delayed or non-healing. X-rays, graphs and drawings were all used to assist with patient comprehension whenappropriate. All patients questions were answered and stated they fully understood. No guarantee as to resultsor outcome of treatment was made. I have discussed with the patient or legally responsible person prior toobtaining consent: the risks, potential benefits and drawbacks, significant alternatives, potential for problemsrelated to recuperation, likelihood of success, and possible results of non-treatment, and the patient or thelegally responsible person has agreed to proceed. [facility]
--- NOTE | 2024-12-23 14:04 | RAD REPORT ---
EXAMINATION: ONE VIEW CHEST XR CLINICAL INDICATION: COUGH TECHNIQUE: Frontal chest projection is submitted. Examination is limited by patient positioning and t echnique. COMPARISON: No prior exam. FINDINGS: Nonspecific peribronchial thickening without focal consolidation could represent a viral or inflammat ory process. The heart is normal in size. No displaced fractures identified. IMPRESSION: Interstitial pattern bilaterally could be related to viral infection or reactive airway disease.
--- NOTE | 2024-12-23 14:13 | RAD REPORT ---
EXAM: CT brain without contrast HISTORY: HEADACHE COMPARISON: None TECHNIQUE: Multiple contiguous axial images were obtained and a CT of the brain without contrast. Sag ittal and coronal reformats were performed. One or more of the following dose reduction techniques were used: Automated exposure control, adjust ment of the mA and/or kV according to patient size, and/or iterative reconstruction. FINDINGS: No evidence of hydrocephalus, intracranial hemorrhage, or extra-axial fluid collection. The brain is normal in morphology. No evidence of midline shift or areas of brain edema. The calvarium is intact. The visualized paranasal sinuses and mastoid air cells are essentially clear . IMPRESSION: No evidence of acute intracranial abnormality.
[2024-12-23] MEDS ORDERED: NA CHLORIDE 0.9% 500 ML ONE (16:07)
[2024-12-23 16:11] LABS: Specific Gravity 1.015 (1.005-1.030); Urine Bilirubin NEGATIVE (Negative); Urine Blood Negative (Negative); Urine Clarity Clear (Clear); Urine Color Light-Yellow (Yellow); Urine Glucose NEGATIVE (Negative); Urine Ketones NEGATIVE (Negative); Urine Microscopic Reflex YN NO UMIC; Urine Nitrite NEGATIVE (Negative); Urine Protein NEGATIVE (Negative); Urine Urobilinogen Normal (Normal)
[2024-12-23 16:15] LABS: Absolute Basophils 0.1 K/uL (0-0.5); Absolute Eosinophils 0.1 K/uL (0-0.5); Absolute Lymphocytes (CBC) 2.6 K/uL (0.7-4.9); Absolute Monocytes 0.6 K/uL (0.1-1.3); Eosinophils % 0.9 % (0-4.4); Hematocrit 38.7 % (36.0-45.0); Hemoglobin 13.6 g/dL (12.0-15.0); Lymphocytes % 31.1 % (15.3-44.8); MCH 31.5 pg (27.0-35.0); MCHC 35.2 g/dL (32.0-36.0); MCV 89.4 fL (80-100); MPV 8.4 fL (7.6-11.3); Monocytes % 7.6 % (3.3-12.3); Neutrophils % 59.4 % (41.7-73.7); Platelets 286 thou/uL (152-406); RBC Red Blood Cell Count 4.33 M/uL (3.86-4.86); Red Cell Distribution Width 13.1 % (12.1-15.2)
[2024-12-23 16:17] LABS: PT Prothrombin Time 11.7 SECONDS (10-13.0); Protime INR 1.03
[2024-12-23 16:29] LABS: Albumin 3.9 g/dL (3.4-5.0); Albumin/Globulin Ratio 1.1 (1.1-1.8); Anion Gap 5.7 mEq/L (5.0-15.0); Bilirubin Direct 0.2 mg/dL (0-0.2); Bilirubin Indirect, Calculated 0.4 mg/dL (0.2-0.8); Bilirubin Total 0.6 mg/dL (0.2-1.0); Globulin 3.7 g/dL (2.3-3.5); Magnesium 2.5 mg/dL (1.6-2.4); Potassium 3.7 mEq/L (3.5-5.1); Protein, Total 7.6 g/dL (6.4-8.2)
--- NOTE | 2024-12-23 17:37 | ER ---
Nurse's Notes [facility] Name: Crystal Augustin Age: 69 yrs Sex: Female : 1955 Arrival Date: 12/23/2024 Time: 13:36 Bed 15 Private MD: Diagnosis: Weakness;Gastro-esophageal reflux disease with esophagitis;Palpitations Presentation: 12/23 13:45 Chief complaint: Intermittent palpitations, nausea, and malaise that started after she hb received flu vaccine 12/13. Coronavirus screen: At this time, the client does not indicate any symptoms associated with coronavirus-19. Ebola Screen: No symptoms or risks identified at this time. Initial Sepsis Screen: Does the patient meet any 2 criteria? No. Patient's initial sepsis screen is negative. Does the patient have a suspected source of infection? No. Patient's initial sepsis screen is negative. Risk Assessment: Do you want to hurt yourself or someone else? Patient reports no desire to harm self or others. Onset of symptoms was December 23, 2024. 13:45 Method Of Arrival: Ambulatory hb 13:45 Acuity: RIZWANA 3 hb Historical: - Allergies: 13:47 Codeine; hb - Home Meds: 13:47 losartan 50 mg oral tablet 2 times per day [Active]; atorvastatin oral daily [Active]; hb - PMHx: 13:47 Hypertension; hb - PSHx: 13:47 Hysterectomy; Bowel Resection; hb - Immunization history:: Adult Immunizations up to date. - Infectious Disease History:: Denies. - Social history:: Smoking status: Patient denies any tobacco usage or history of. Screenin:04 [facility] ED Fall Risk Assessment (Adult) History of falling in the last 3 months, kc6 including since admission No falls in past 3 months (0 pts) Confusion or Disorientation No (0 pts) Intoxicated or Sedated No (0 pts) Impaired Gait No (0 pts) Mobility Assist Device Used No (0 pt) Altered Elimination No (0 pt) Score/Fall Risk Level 0 - 2 = Low Risk Oriented to surroundings, Maintained a safe environment, Educated pt \T\ family on fall prevention, incl call for assistance when getting out of bed. Abuse screen: Denies threats or abuse. Denies injuries from another. Nutritional screening: No deficits noted. Tuberculosis screening: No symptoms or risk factors identified. Assessment: 16:04 General: Appears in no apparent distress. comfortable, well groomed, well developed, kc6 Behavior is calm, cooperative, appropriate for age, Reports feeling ill for > 3 days, fatigue for >3 days. Pain: Denies pain. Neuro: Level of Consciousness is awake, alert, obeys commands, Oriented to person, place, time, situation, Appropriate for age. Cardiovascular: Reports fatigue, nausea, palpitations, Heart tones S1 S2 present Capillary refill < 3 seconds Rhythm is regular. Respiratory: Airway is patent Trachea midline Respiratory effort is even, unlabored, Respiratory pattern is regular, symmetrical. GI: No signs and/or symptoms were reported involving the gastrointestinal system. : No signs and/or symptoms were reported regarding the genitourinary system. EENT: No signs and/or symptoms were reported regarding the EENT system. Derm: No signs and/or symptoms reported regarding the dermatologic system. Skin is intact, is healthy with good turgor, Skin is pink, warm \T\ dry. Musculoskeletal: No signs and/or symptoms reported regarding the musculoskeletal system. Circulation, motion, and sensation intact. Range of motion: intact in all extremities. 17:04 Reassessment: Patient appears in no apparent distress at this time. No changes from kc6 previously documented assessment. Patient and/or family updated on plan of care and expected duration. Pain level reassessed. Patient is alert, oriented x 3, equal unlabored respirations, skin warm/dry/pink. 18:08 Reassessment: Patient appears in no apparent distress at this time. No changes from kc6 previously documented assessment. Patient and/or family updated on plan of care and expected duration. Pain level reassessed. Patient is alert, oriented x 3, equal unlabored respirations, skin warm/dry/pink. Vital Signs: 13:45 BP 192 / 95; Pulse 71; Resp 18; Temp 98.1(O); Pulse Ox 100% on R/A; Weight 88.45 kg; hb Height 5 ft. 3 in. ; Pain 0/10; 16:48 BP 164 / 95; Pulse 75; Resp 16 S; Pulse Ox 99% on R/A; kc6 18:08 BP 164 / 90; Pulse 68; Resp 16 S; Pulse Ox 98% on R/A; kc6 13:45 Body Mass Index 34.54 (88.45 kg, 160.02 cm) hb 13:45 Pain Scale: Adult hb ED Course: 13:40 Patient arrived in ED. cj3 13:47 Cesar Doan MD is Attending Physician. layla 13:47 Triage completed. hb 13:49 Arm band placed on. hb 14:01 XRAY Chest (1 view) In Process Unspecified. EDMS 14:07 CT Head Brain wo Cont In Process Unspecified. EDMS 15:41 Deonna Singh, RN is Primary Nurse. kc6 16:04 Patient has correct armband on for positive identification. Bed in low position. Call kc6 light in reach. Side rails up X 1. Adult w/ patient. hall monitor on. Pulse ox on. NIBP on. Door closed. Noise minimized. Lights dimmed. Warm blanket given. Pillow given. Verbal reassurance given. 16:04 Initial lab(s) drawn, by me, sent to lab. Urine collected: clean catch specimen, clear, kc6 EKG done, by ED staff, reviewed by Cesar Doan MD. Inserted saline lock: 20 gauge in right antecubital area, using aseptic technique. Blood collected. Flushed with 10 mL NS. Patient maintains SpO2 saturation greater than 95% on room air. 17:35 Pavan Ballesteros MD is Referral Physician. [facility] 18:20 No provider procedures requiring assistance completed. IV discontinued, intact, kc6 bleeding controlled, No redness/swelling at site. Pressure dressing applied. Administered Medications: 16:32 Drug: NS 0.9% IV 500 ml 500 ml IV at 1 bolus once; to be given as a bolus over 30 kc6 minutes Volume: 500 ml; Route: IV; Rate: 1 bolus; Site: right antecubital; 17:55 Follow up: Response: No adverse reaction; IV Status: Completed infusion; IV Intake: kc6 500ml 17:54 Drug: Aspirin PO Chewable Tablet 162 mg PO once Route: PO; kc6 18:09 Follow up: Response: No adverse reaction kc6 17:54 Drug: GI Cocktail without - (Maalox PO 30 ml, Lidocaine Mucous Membrane 2 % 15 kc6 ml) PO once Route: PO; 18:09 Follow up: Response: No adverse reaction kc6 17:54 Drug: ToPROL XL PO 25 mg PO once Route: PO; kc6 18:09 Follow up: Response: No adverse reaction kc6 17:55 Drug: Pantoprazole IVP 40 mg IVP once Route: IVP; Site: right antecubital; kc6 18:09 Follow up: Response: No adverse reaction kc6 Medication: 18:20 VIS not applicable for this client. kc6 Intake: 17:55 IV: 500ml; Total: 500ml. kc6 Outcome: 17:37 Discharge ordered by MD. rich 18:20 Discharged to home ambulatory, with family, kc6 18:20 Condition: good 18:20 Discharge instructions given to patient, family, Instructed on discharge instructions, follow up and referral plans. medication usage, Demonstrated understanding of instructions, follow-up care, medications, Prescriptions given X 3, 18:21 Patient left the ED. kc6 Signatures: Dispatcher [employer] EDCesar Jacobson MD MD cha Baxter, Heather, RN RN Deonna Simons RN RN kc6 Annie Sheriff [email or web address]
--- NOTE | 2024-12-23 17:37 | EDPHYS ---
Physician Documentation [facility] Name: Crystal Augustin Age: 69 yrs Sex: Female : 1955 Arrival Date: 12/23/2024 Time: 13:36 Bed 15 Private MD: ED Physician Cesar Doan HPI: 12/23 17:31 This 69 yrs old Female presents to ER via Ambulatory with complaints of layla Doesn't Feel Right. 17:31 The patient presents with a history of irregular heart beat. Context: The symptoms layla occur during sleep. Onset: The symptoms/episode began/occurred 14 day(s) ago. Duration: The patient or guardian reports multiple episodes, that wax and wane. Modifying factors: The symptoms are aggravated by nothing. The symptoms are alleviated by nothing. Associated signs and symptoms: The patient has no apparent associated signs or symptoms. Severity of symptoms: At their worst the symptoms were moderate in the emergency department the symptoms are unchanged. The patient has experienced similar episodes in the past, a few times. Historical: - Allergies: 13:47 Codeine; hb - Home Meds: 13:47 losartan 50 mg oral tablet 2 times per day [Active]; atorvastatin oral daily [Active]; hb - PMHx: 13:47 Hypertension; hb - PSHx: 13:47 Hysterectomy; Bowel Resection; hb - Immunization history:: Adult Immunizations up to date. - Infectious Disease History:: Denies. - Social history:: Smoking status: Patient denies any tobacco usage or history of. ROS: 17:32 Constitutional: Negative for fever, chills, and weight loss, Eyes: Negative for injury, layla pain, redness, and discharge, ENT: Negative for injury, pain, and discharge, Neck: Negative for injury, pain, and swelling, Respiratory: Negative for shortness of breath, cough, wheezing, and pleuritic chest pain, Abdomen/GI: Negative for abdominal pain, nausea, vomiting, diarrhea, and constipation, Back: Negative for injury and pain, : Negative for injury, bleeding, discharge, and swelling, MS/Extremity: Negative for injury and deformity, Skin: Negative for injury, rash, and discoloration, Neuro: Negative for headache, weakness, numbness, tingling, and seizure, Psych: Negative for depression, anxiety, suicide ideation, homicidal ideation, and hallucinations, Allergy/Immunology: Negative for hives, rash, and allergies, Endocrine: Negative for neck swelling, polydipsia, polyuria, polyphagia, and marked weight changes, Hematologic/Lymphatic: Negative for swollen nodes, abnormal bleeding, and unusual bruising, 17:32 Neck: Positive for 17:32 Cardiovascular: Positive for palpitations, Exam: 17:32 Constitutional: This is a well developed, well nourished patient who is awake, alert, layla and in no acute distress. Head/Face: Normocephalic, atraumatic. Eyes: Pupils equal round and reactive to light, extra-ocular motions intact. Lids and lashes normal. Conjunctiva and sclera are non-icteric and not injected. Cornea within normal limits. Periorbital areas with no swelling, redness, or edema. ENT: Nares patent. No nasal discharge, no septal abnormalities noted. Tympanic membranes are normal and external auditory canals are clear. Oropharynx with no redness, swelling, or masses, exudates, or evidence of obstruction, uvula midline. Mucous membranes moist. Neck: Trachea midline, no thyromegaly or masses palpated, and no cervical lymphadenopathy. Supple, full range of motion without nuchal rigidity, or vertebral point tenderness. No Meningismus. Chest/axilla: Normal chest wall appearance and motion. Nontender with no deformity. No lesions are appreciated. Cardiovascular: Regular rate and rhythm with a normal S1 and S2. No gallops, murmurs, or rubs. Normal PMI, no JVD. No pulse deficits. Respiratory: Lungs have equal breath sounds bilaterally, clear to auscultation and percussion. No rales, rhonchi or wheezes noted. No increased work of breathing, no retractions or nasal flaring. Abdomen/GI: Soft, non-tender, with normal bowel sounds. No distension or tympany. No guarding or rebound. No evidence of tenderness throughout. Back: No spinal tenderness. No costovertebral tenderness. Full range of motion. Female : Normal external genitalia. Skin: Warm, dry with normal turgor. Normal color with no rashes, no lesions, and no evidence of cellulitis. MS/ Extremity: Pulses equal, no cyanosis. Neurovascular intact. Full, normal range of motion., bilateral aka Neuro: Awake and alert, GCS 15, oriented to person, place, time, and situation. Cranial nerves II-XII grossly intact. Motor strength 5/5 in all extremities. Sensory grossly intact. Cerebellar exam normal. Normal gait. Psych: Awake, alert, with orientation to person, place and time. Behavior, mood, and affect are within normal limits. 17:32 ECG was reviewed by the Attending Physician. 17:32 Musculoskeletal/extremity: ROM: no acute changes, intact in all extremities, full active range of motion, full passive range of motion, Circulation is intact in all extremities. Sensation intact. Compartment Syndrome exam of affected extremity: is normal. Joints: All joints appear normal with full range of motion. Weight bearing: able to fully bear weight, Tendon exam: specific tendon testing normal through active and passive range of motion DVT Exam: No signs of deep vein thrombosis. no pain, no swelling, no tenderness, negative Homans' sign noted on exam, no appreciated bluish discoloration, no erythema, no increased warmth, Vital Signs: 13:45 BP 192 / 95; Pulse 71; Resp 18; Temp 98.1(O); Pulse Ox 100% on R/A; Weight 88.45 kg; hb Height 5 ft. 3 in. ; Pain 0/10; 16:48 BP 164 / 95; Pulse 75; Resp 16 S; Pulse Ox 99% on R/A; kc6 18:08 BP 164 / 90; Pulse 68; Resp 16 S; Pulse Ox 98% on R/A; kc6 13:45 Body Mass Index 34.54 (88.45 kg, 160.02 cm) hb 13:45 Pain Scale: Adult hb MDM: 13:47 Medical Screening Exam initiated [facility] 17:34 Differential diagnosis: arrythmia, dehydration, stress disorder. Data reviewed: vital [facility] signs, nurses notes, lab test result(s), EKG, radiologic studies, plain films. Consideration of Admission/Observation Escalation of care including admission/observation considered. I considered the following discharge prescriptions or medication management in the emergency department Medications were administered in the Emergency Department. See MAR. Independent interpretation of the following test(s) in the Emergency Department EKG: See my EKG interpretation above. Test considered but Not performed: Ultrasound no 2 d echo. Care significantly affected by the following chronic conditions: Hypertension, Obesity. 12/23 13:48 Order name: Basic Metabolic Panel; Complete Time: 16:46 12/23 13:48 Order name: CBC with Diff; Complete Time: 16:46 12/23 13:48 Order name: LFT's; Complete Time: 16:46 12/23 13:48 Order name: Magnesium; Complete Time: 16:46 12/23 13:48 Order name: NT PRO-BNP; Complete Time: 16:46 12/23 13:48 Order name: PT-INR; Complete Time: 16:46 12/23 13:48 Order name: Troponin HS; Complete Time: 16:46 12/23 13:48 Order name: Lipase; Complete Time: 16:46 12/23 13:48 Order name: Urinalysis w/ reflexes; Complete Time: 16:46 12/23 13:48 Order name: XRAY Chest (1 view); Complete Time: 16:46 12/23 13:48 Order name: CT Head Brain wo Cont; Complete Time: 16:46 12/23 13:48 Order name: EKG; Complete Time: 13:48 [facility] 12/23 13:48 Order name: Cardiac monitoring; Complete Time: 16:04 12/23 13:48 Order name: EKG - Nurse/Tech; Complete Time: 16:04 12/23 13:48 Order name: IV Saline Lock; Complete Time: 16:04 [facility] 12/23 13:48 Order name: Labs collected and sent; Complete Time: 16:04 layla 12/23 13:48 Order name: O2 Per Protocol; Complete Time: 16:04 12/23 13:48 Order name: O2 Sat Monitoring; Complete Time: 16:04 [facility] EC:32 Rate is 68 beats/min. Rhythm is regular. QRS [place] is Normal. NE interval is normal. QRS layla interval is normal. QT interval is normal. No Q waves. T waves are Normal. No ST changes noted. Clinical impression: Normal ECG and No evidence of ischemia. Interpreted by me. Reviewed by me. Administered Medications: 16:32 Drug: NS 0.9% IV 500 ml 500 ml IV at 1 bolus once; to be given as a bolus over 30 kc6 minutes Volume: 500 ml; Route: IV; Rate: 1 bolus; Site: right antecubital; 17:55 Follow up: Response: No adverse reaction; IV Status: Completed infusion; IV Intake: kc6 500ml 17:54 Drug: Aspirin PO Chewable Tablet 162 mg PO once Route: PO; kc6 18:09 Follow up: Response: No adverse reaction kc6 17:54 Drug: GI Cocktail without - (Maalox PO 30 ml, Lidocaine Mucous Membrane 2 % 15 kc6 ml) PO once Route: PO; 18:09 Follow up: Response: No adverse reaction kc6 17:54 Drug: ToPROL XL PO 25 mg PO once Route: PO; kc6 18:09 Follow up: Response: No adverse reaction kc6 17:55 Drug: Pantoprazole IVP 40 mg IVP once Route: IVP; Site: right antecubital; kc6 18:09 Follow up: Response: No adverse reaction kc6 Disposition Summary: 12/23/24 17:37 Discharge Ordered Notes: Location: Home layla Problem: new layla Symptoms: have improved layla Condition: Stable layla Diagnosis - Weakness layla - Gastro-esophageal reflux disease with esophagitis layla - Palpitations layla Followup: layla - With: Private Physician - When: 2 - 3 days - Reason: Recheck today's complaints, Continuance of care, Re-evaluation by your physician Followup: layla - With: Pavan Ballesteros MD - When: 2 - 3 days - Reason: Recheck today's complaints, Re-evaluation by your physician Discharge Instructions: - Discharge Summary Sheet layla - Food Choices for Gastroesophageal Reflux Disease, Adult layla - Esophagitis layla - Gastroesophageal Reflux Disease, Adult layla - Indigestion layla - Palpitations layla - Weakness layla - Gastroesophageal Reflux Disease, Adult, [id number] layla - Weakness, [id number] layla - Aspirin and Your Heart layla - Palpitations, [id number] [facility] Forms: - Medication Reconciliation Form layla - Antibiotic Education layla - Prescription Opioid Use layla - Patient Portal Instructions [facility] - Leadership Thank You Letter [facility] Prescriptions: - Carafate 1 gram Oral tablet - take 1 tablet ORAL route 4 times per day take on an empty stomach, beginning on layla waking and last dose at bedtime; 40 tablet; Refills: 0, Product Selection Permitted - Protonix 40 mg Oral Tablet - take 1 tablet ORAL route once daily; 30 tablet; Refills: 0, Product Selection layla Permitted - Toprol XL 25 mg Oral Tablet - take 1 tablet ORAL route once daily; 20 tablet; Refills: 0, Product Selection layla Permitted Signatures: Dispatcher [employer] EDCesar Jacobson MD MD cha Baxter, Heather, RN RN hb Deonna Singh RN RN kc6
[2024-12-23] MEDS ORDERED: MAGNES/ALUMIN/SIMET 30ML UCUP ONE (17:41)
[2024-12-23] MEDS ORDERED: LIDOCAINE VISCOUS 2% 10ML ORAL SOLN ONE (17:41)
[2024-12-23] MEDS ORDERED: ASPIRIN 81 MG CHEWABLE TABLET ONE (17:41)
[2024-12-23] MEDS ORDERED: METOPROLOL XL 50 MG TAB PO ONE (17:41)
[2024-12-23] MEDS ORDERED: PANTOPRAZOLE 40 MG INJ ONE (17:41)
[2024-12-23 18:29] VITALS: TEMP 98.1
[2024-12-23 18:31] VITALS: BP 164/90; O2SAT 98
--- NOTE | 2024-12-26 10:56 | EKG ---
Test Date: 2024-12-23 Test Time: 15:52:33 Tactical/Mobile Watch Officer: SUSAN MEASUREMENT RESULTS: Intervals: Rate: 68 PA: 184 QRSD: 76 QT: 416 QTc: 442 [place]: P: 42 PA: 184 QRS: 25 T: 27 INTERPRETIVE STATEMENTS: Normal sinus rhythm Anterior infarct, age undetermined Abnormal ECG No previous ECG available for comparison Electronically Signed On 12-26-24 10:50:33 CDT by Moody Yuan
== END 2024-12-23 18:21 | disposition home or self-care (01) ==
LOC: ER 13:36
DX: K21.00 Gastro-esophageal reflux disease with esophagitis, without bleeding (principal); R00.2 Palpitations; I10 Essential (primary) hypertension
CPT/HCPCS: 96361; 85025; 80048; 36415; 83735; 85610; 80076; 81003; 84484; 83690; 83880; 70450; 71045; 96374; 99285; J2470; J7040; 93005

== ENCOUNTER 2025-02-01 08:49 | Observation (INO) | payer OTHER ==
--- OUTSIDE RECORDS SUMMARY | 2025-02-01 08:55 | XMS REPORT | Continuity of Care Document ---
Author Name Unknown Address [address] [facility] [address] [place] [address] [facility] [address] [facility] [address] [place] [address] Care Team Providers Care Can Dryer Name Role Phone Rachel Krueger MD Primary Care Physician Rachel Krueger Attending Clinician Unavailable Malissa Up Attending Clinician Unavailable NIMESH DOMINGUEZ Attending Clinician Unavailab Chucho Baltazar MD Attending Clinician [phone] Conrad Taylor MD Attending Clinician [phone] Selbst Zeke GARCIA Attending Clinician + [phone] ZEKE HAYNES Attending Clinician Unavail able MYA GONZALEZ Attending Clinician Unavailable Mya Gonzalez PA-C Attending Clinician [phone] Unknown, Attending Attending Clinician Unavailab NORMA Lainez Attending Clinician Unavailable Norma Lynn MD Attending Clinician [phone] Doctor Unassigned, [place] Attending Clinician U Nimesh Stubbs MD Attending Clinician [phone] Dorita LCAC RADAR OPERATOR/NAVIGATOR, Lee Ann Attending Clinician [phone] LEE ANN KEVIN Attending Clinician Unavailable SATINDER WILKINS Attending Clinician Unavailable Therapy, [facility] Attending Clinician Unavailable Satinder Wilkins MD Attending Clinician [phone] Renny LCAC RADAR OPERATOR/NAVIGATOR, Eduar B Attending Clinician [phone] Only, [facility] Test Attending Clinician Unavailable Zoya Zhang MD Attending Clinician [phone] Lab, [facility] Fam Pob I Attending Clinician Unavailab ZOYA Calvillo Attending Clinician UnavailSerge Aguirre MD Attending Clinician [phone] NIMESH DOMINGUEZ Admitting Clinician Unavailab kaleigh Payers Payer Name Policy Type Policy Number Effective Date Expirati on Date Source [employer] [place] [id number] 2019 00:00:00 MEDICARE PART A \\T\\ B [id number] 2021 00:00:00 [facility] [id number] 2015-09-14 00:00:00 [facility] MEDICARE Medicare [id number] 2019-06-14 00:00:00 MEDICARE PART A AND B Medicare [id number] MEDICARE [place] [id number] 2019-06-14 00:00:00 [facility] Medicare Replace [id number] 2020-09-14 00:00:00 [facility] Problems Condition Name Condition Details Condition Category Status Onset Date Resolution Date Last Treatment Date Treating Clinician Comments Source Keloid of skin Keloid of skin Disease Active 01-20 00:00: 00 Overview: Formattin g of this note might be different from the original. Added automatic ally from request for surgery [id number] [facility] Small bowel mass Small bowel mass Disease Active 10-05 00:00: 00 [facility] Perforated bowel Perforated bowel Disease Active 10-04 00:00: 00 [facility] Abdominal pain Abdominal pain Disease Active 10-04 00:00: 00 [facility] [id number] Mixed hyperlipid emia Problem [facility] Allergic rhinitis Non-season al allergic rhinitis, unspecifie d trigger Problem [facility] [id number] Moderate major depression Problem [facility] [id number] Depression with anxiety Problem [facility] [id number] Essential hypertensi on Problem [facility] [id number] Eye exam, routine Problem [facility] [id number] Gastroesop hageal reflux disease without esophagiti s Problem [facility] [id number] 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 Problem [facility] Generalize d osteoarthr itis Generalize d osteoarthr itis Problem [facility] [id number] Other chronic pain Problem [facility] Allergies, Adverse Reactions, Alerts Allergy Name Allergy Type Status Severity Reaction(s) Onset Date Inactive Date Treating Clinician Comments Source Codeine Propensi ty to adverse reaction s Active GI intolerance 10-12 00:00: 00 David Kim Codeine Propensi ty to adverse reaction s Active Nausea and/or Vomiting 10-04 00:00: 00 [facility] CODEINE DRUG INGREDI Active N/V 10-04 00:00: 00 [facility] Social History Social Habit Start Date Stop Date Quantity Comments Source ASSERTION Not [facility] Gender identity Tiago ross Kim Sexual orientation [facility] History of Tobacco Use [facility] Sex Assigned At [facility] History of Social function 2025-01-31 00:00:00 2025-01-31 00:00:00 [facility] Alcoholic beverage intake 2025-01-31 00:00:00 2025-01-31 00:00:00 0 /d [facility] Alcohol intake 2023-12-22 00:00:00 2023-12-22 00:00:00 0 /d [facility] Exposure to SARS-CoV-2 (event) 2022-01-10 00:00:00 2022-01-20 13:05:00 Not sure [facility] Tobacco use and exposure 2021-10-29 00:00:00 2021-10-29 00:00:00 Smokeless tobacco non-user [facility] Smoking Status Start Date Stop Date Source Tobacco smoking consumption unknown [facility] Eyad morse Former Smoker 2025-01-04 00:00:00 2025-01-04 00:00:00 [facility] Current Smoker 2024-03-01 00:00:00 [facility] Occasional tobacco smoker 2021-10-29 00:00:00 [facility] Medications Ordered Medication Name Filled Medication Name Start Date Stop Date Current Medication? Ordering Clinician Indication Dosage Frequency Signature (SIG) Comments Components Source ondansetron (ZOFRAN (PF)) injection 4 mg 01-31 11:45: 00 01-31 11:44 :00 No 4mg 4 mg, Slow IV Push, ONCE, 1 dose, On Thu01/31/25 at 0645, Administer over 2-5 Minutes, 2 mL [facility] naproxen sodium (ANAPROX) 220 mg tablet 01-31 08:08: 11 Yes 220mg Take 220 mg by mouth 2 (two) times daily with meals. [facility] atorvastati n 20 mg tablet 01-31 08:08: 11 Yes 1 tablet Orally Once a day for 90 days [facility] losartan 50 mg tablet 01-31 08:08: 11 Yes TAKE 1 TABLET BY MOUTH TWICE DAILY for 90 days [facility] hydrOXYzine 10 mg tablet 01-31 00:00: 00 Yes [id number] 10mg Take 1 tablet by mouth every 8 (eight) hours as needed for Anxiety. [facility] meloxicam (Mobic) 15 MG tablet meloxicam (Mobic) 15 MG tablet 10-12 00:00: 00 11-11 23:59 :00 No 15mg Q24H Take 1 tablet by mouth daily as needed for moderate pain (4-6) or mild pain (1-3). Only take if needed for foot pain David Kim Olopatadine HCl 0.2 % Olopatadine HCl 0.2 % 2023-09 0 00:00: 00 No 1{drop_ into_af fected_ eye} QD Olopatadin e HCl 0.2 % atorvastati n 20 mg tablet 12-21 13:58: 19 Yes 1 tablet Orally Once a day for 90 days [facility] losartan 50 mg tablet 12-21 13:58: 19 Yes TAKE 1 TABLET BY MOUTH TWICE DAILY for 90 days [facility] cetirizine 10 mg tablet 12-21 00:00: 00 Yes [id number] 10mg Take 1 tablet by mouth in the morning. [facility] fluticasone propionate 50 mcg/actuati on nasal spray 12-21 00:00: 00 Yes [id number] 2{spray } Use 2 Sprays in each nostril in the morning. [facility] albuterol 90 mcg/actuati on inhaler 05-10 00:00: 00 Yes [id number] 2{puff} Inhale 2 Puffs every 4 (four) hours as needed for Wheezing or Shortness of Breath. [facility] benzonatate 100 mg capsule 05-10 00:00: 00 Yes [id number] 100mg Take 1 capsule by mouth 3 (three) times daily as needed for Cough. [facility] dextrometho rphan-guaif enesin 10-100 mg/5 mL solution 05-10 00:00: 00 Yes [id number] 5mL Take 5 mL by mouth every 6 (six) hours as needed for Cough. [facility] ondansetron 4 mg disintegrat ing tablet 05-10 00:00: 00 Yes [id number] 4mg Take 1 tablet by mouth every 12 (twelve) hours as needed for Nausea and Vomiting (N/V). [facility] cephALEXin 500 mg capsule 03-05 00:00: 00 Yes [id number] 500mg Take 1 capsule by mouth 3 (three) times daily. [facility] naproxen sodium (ANAPROX) 220 mg tablet 10-23 11:21: 57 Yes 220mg Take 220 mg by mouth 2 (two) times daily with meals. [facility] acetaminoph en-codeine (TYLENOL #3) 300-30 mg tablet 10-10 00:00: 00 Yes 1{tbl} Take 1 Tab by mouth every 4 (four) hours as needed for Pain (scale 1-3). [facility] ibuprofen (MOTRIN) 800 mg tablet 10-10 00:00: 00 Yes 800mg Take 1 Tab by mouth every 6 (six) hours as needed for Pain (scale 1-3). [facility] cyclobenzap rine (FLEXERIL) 5 mg tablet 10-10 00:00: 00 Yes 5mg Take 1 Tab by mouth 3 (three) times daily as needed for Muscle Spasms. [facility] Triamcinolo ne Acetonide 0.1 % Triamcinolo [...] il} QD Fluticason e Propionate 50 MCG/ACT Pantoprazol e Sodium 40 MG Pantoprazol e Sodium 40 MG No 1{table t} QD Pantoprazo le Sodium 40 MG Metoprolol Succinate ER 25 MG Metoprolol Succinate ER 25 MG No 1{table t} QD Metoprolol Succinate ER 25 MG Sucralfate 1 GM Sucralfate 1 GM No 1{table t_on_an _empty_ stomach } QID Sucralfate 1 GM Immunizations Ordered Immunization Name Filled Immunization Name Date Status Comments Source Influenza Virus Vaccine Quad IM 3+ YRS 2023-12-22 13:40:00 Completed [facility] Influenza Virus Vaccine Quad IM 3+ YRS 2023-12-22 00:00:00 Completed [facility] Fluad (IIV) - SDS - 0.5mL Fluad (IIV) - SDS - 0.5mL 2021-07-11 10:22:00 Completed [facility] FluAD FluAD 2021-07-11 10:22:00 Completed [facility] FluAD FluAD 2021-07-11 10:22:00 Completed [facility] Prevnar 13 (PCV13) Prevnar 13 (PCV13) 2020-12-06 11:03:00 Completed [facility] Prevnar 13 (PCV13) Prevnar 13 (PCV13) 2020-12-06 11:03:00 Completed [facility] Prevnar 13 (PCV13) Prevnar 13 (PCV13) 2020-12-06 11:03:00 Completed [facility] Influenza Virus Vaccine Quad IM 3+ YRS 2015-10-10 00:00:00 Completed [facility] Influenza Virus Vaccine Quad IM 3+ YRS 2015-10-10 00:00:00 Completed [facility] Influenza Virus Vaccine Quad IM 3+ YRS 2015-10-10 00:00:00 Completed [facility] Influenza Virus Vaccine Quad IM 3+ YRS 2015-10-10 00:00:00 Completed [facility] Influenza Virus Vaccine Quad IM 3+ YRS 2015-10-10 00:00:00 Completed [facility] FluAD FluAD Unknown Completed [facility] Prevnar 13 (PCV13) Prevnar 13 (PCV13) Unknown Completed [facility] FluAD FluAD Unknown Completed [facility] Prevnar 13 (PCV13) Prevnar 13 (PCV13) Unknown Completed [facility] FluAD FluAD Unknown Completed [facility] Prevnar 13 (PCV13) Prevnar 13 (PCV13) Unknown Completed [facility] FluAD FluAD Unknown Completed [facility] Prevnar 13 (PCV13) Prevnar 13 (PCV13) Unknown Completed [facility] FluAD FluAD Unknown Completed [facility] Prevnar 13 (PCV13) Prevnar 13 (PCV13) Unknown Completed [facility] FluAD FluAD Unknown Completed [facility] Prevnar 13 (PCV13) Prevnar 13 (PCV13) Unknown Completed [facility] FluAD FluAD Unknown Completed [facility] Prevnar 13 (PCV13) Prevnar 13 (PCV13) Unknown Completed [facility] FluAD FluAD Unknown Completed [facility] Prevnar 13 (PCV13) Prevnar 13 (PCV13) Unknown Completed [facility] FluAD FluAD Unknown Completed [facility] Prevnar 13 (PCV13) Prevnar 13 (PCV13) Unknown Completed [facility] FluAD FluAD Unknown Completed [facility] Prevnar 13 (PCV13) Prevnar 13 (PCV13) Unknown Completed [facility] FluAD FluAD Unknown Completed [facility] Prevnar 13 (PCV13) Prevnar 13 (PCV13) Unknown Completed [facility] Vital Signs Vital Name Observation Time Observation Value Comments S ource Systolic blood pressure 2025-01-31 12:48:00 155 mm[Hg] [facility] Diastolic blood pressure 2025-01-31 12:48:00 78 mm[Hg] [facility] Heart rate 2025-01-31 12:48:00 72 /min [facility] Body temperature 2025-01-31 12:48:00 36.78 Leyla [facility] Respiratory rate 2025-01-31 12:48:00 14 /min [facility] Oxygen saturation in Arterial blood by Pulse oximetry 2025-01-31 12:48:00 98 /min [facility] Body height 2025-01-31 11:22:00 160 cm [facility] Body weight 2025-01-31 11:22:00 85.73 kg [facility] BMI 2025-01-31 11:22:00 33.48 kg/m2 [facility] height 2025-01-04 15:15:00 63.00 [in_i] Com [facility] weight 2025-01-04 15:15:00 180.8 [lb_av] [facility] temperature 2025-01-04 15:15:00 97.7 [degF] Com [facility] bmi 2025-01-04 15:15:00 32.02 kg/m2 [facility] oximetry 2025-01-04 15:15:00 99 % [facility] blood pressure systolic 2025-01-04 15:15:00 178 mm[Hg] [facility] blood pressure diastolic 2025-01-04 15:15:00 90 mm[Hg] [facility] height 2024-09-16 13:40:00 63.00 [in_i] Com [facility] weight 2024-09-16 13:40:00 188 [lb_av] Comm [facility] temperature 2024-09-16 13:40:00 97.1 [degF] Com [facility] bmi 2024-09-16 13:40:00 33.3 kg/m2 [facility] oximetry 2024-09-16 13:40:00 98 % [facility] respiratory rate 2024-09-16 13:40:00 16 /min [facility] blood pressure systolic 2024-09-16 13:40:00 142 mm[Hg] [facility] blood pressure diastolic 2024-09-16 13:40:00 80 mm[Hg] [facility] height 2024-06-14 14:00:00 63.00 [in_i] Com [facility] weight 2024-06-14 14:00:00 195 [lb_av] [facility] temperature 2024-06-14 14:00:00 97.5 [degF] Com [facility] bmi 2024-06-14 14:00:00 34.54 kg/m2 [facility] oximetry 2024-06-14 14:00:00 96 % [facility] respiratory rate 2024-06-14 14:00:00 16 /min [facility] blood pressure systolic 2024-06-14 14:00:00 132 mm[Hg] [facility] blood pressure diastolic 2024-06-14 14:00:00 76 mm[Hg] [facility] height 2024-06-14 14:00:00 63.00 [in_i] Com [facility] weight 2024-06-14 14:00:00 195 [lb_av] Comm [facility] temperature 2024-06-14 14:00:00 97.5 [degF] Com [facility] bmi 2024-06-14 14:00:00 34.54 kg/m2 [facility] oximetry 2024-06-14 14:00:00 96 % [facility] respiratory rate 2024-06-14 14:00:00 16 /min [facility] blood pressure systolic 2024-06-14 14:00:00 132 mm[Hg] [facility] blood pressure diastolic 2024-06-14 14:00:00 76 mm[Hg] [facility] height 2024-03-09 15:40:00 63.00 [in_i] Com [facility] weight 2024-03-09 15:40:00 200 [lb_av] Comm [facility] temperature 2024-03-09 15:40:00 97.2 [degF] Com [facility] bmi 2024-03-09 15:40:00 35.42 kg/m2 [facility] oximetry 2024-03-09 15:40:00 96 % [facility] respiratory rate 2024-03-09 15:40:00 16 /min [facility] blood pressure systolic 2024-03-09 15:40:00 136 mm[Hg] [facility] blood pressure diastolic 2024-03-09 15:40:00 82 mm[Hg] [facility] height 2024-02-01 14:00:00 63.00 [in_i] Com [facility] weight 2024-02-01 14:00:00 201.6 [lb_av] Co [facility] temperature 2024-02-01 14:00:00 97.2 [degF] Com [facility] bmi 2024-02-01 14:00:00 35.71 kg/m2 [facility] oximetry 2024-02-01 14:00:00 99 % [facility] respiratory rate 2024-02-01 14:00:00 16 /min [facility] blood pressure systolic 2024-02-01 14:00:00 138 mm[Hg] [facility] blood pressure diastolic 2024-02-01 14:00:00 82 mm[Hg] [facility] height 2024-02-01 14:40:00 63.00 [in_i] Com [facility] weight 2024-02-01 14:40:00 201.6 [lb_av] [facility] temperature 2024-02-01 14:40:00 97.2 [degF] Com [facility] bmi 2024-02-01 14:40:00 35.71 kg/m2 [facility] oximetry 2024-02-01 14:40:00 99 % [facility] respiratory rate 2024-02-01 14:40:00 16 /min [facility] blood pressure systolic 2024-02-01 14:40:00 138 mm[Hg] [facility] blood pressure diastolic 2024-02-01 14:40:00 82 mm[Hg] [facility] Systolic blood pressure 2023-12-22 18:58:00 158 mm[Hg] [facility] Diastolic blood pressure 2023-12-22 18:58:00 87 mm[Hg] [facility] Heart rate 2023-12-22 18:57:00 85 /min [facility] Body temperature 2023-12-22 18:57:00 36.56 Leyla [facility] Respiratory rate 2023-12-22 18:57:00 14 /min [facility] Body weight 2023-12-22 18:57:00 90.719 kg [facility] BMI 2023-12-22 18:57:00 37.79 kg/m2 [facility] Oxygen saturation in Arterial blood by Pulse oximetry 2023-12-22 18:57:00 95 /min [facility] height 2023-08-28 15:00:00 63.00 [in_i] Com [facility] weight 2023-08-28 15:00:00 196.2 [lb_av] [facility] temperature 2023-08-28 15:00:00 97.2 [degF] Com [facility] bmi 2023-08-28 15:00:00 34.75 kg/m2 [facility] oximetry 2023-08-28 15:00:00 96 % [facility] respiratory rate 2023-08-28 15:00:00 16 /min [facility] blood pressure systolic 2023-08-28 15:00:00 132 mm[Hg] [facility] blood pressure diastolic 2023-08-28 15:00:00 72 mm[Hg] [facility] height 2023-05-28 11:20:00 63.00 [in_i] Com [facility] weight 2023-05-28 11:20:00 192.6 [lb_av] [facility] 2023-05-28 11:20:00 97.0 [degF] Com [facility] bmi 2023-05-28 11:20:00 34.11 kg/m2 [facility] oximetry 2023-05-28 11:20:00 97 % [facility] respiratory rate 2023-05-28 11:20:00 16 /min [facility] blood pressure systolic 2023-05-28 11:20:00 128 mm[Hg] [facility] blood pressure diastolic 2023-05-28 11:20:00 78 mm[Hg] [facility] height 2023-02-27 13:00:00 63.00 [in_i] Com [facility] weight 2023-02-27 13:00:00 193.2 [lb_av] [facility] bmi 2023-02-27 13:00:00 34.22 kg/m2 [facility] oximetry 2023-02-27 13:00:00 97 % [facility] respiratory rate 2023-02-27 13:00:00 16 /min [facility] blood pressure systolic 2023-02-27 13:00:00 134 mm[Hg] [facility] blood pressure diastolic 2023-02-27 13:00:00 78 mm[Hg] [facility] height 2023-01-07 09:00:00 63.00 [in_i] Com [facility] weight 2023-01-07 09:00:00 193 [lb_av] [facility] temperature 2023-01-07 09:00:00 98.0 [degF] Com [facility] bmi 2023-01-07 09:00:00 34.18 kg/m2 [facility] oximetry 2023-01-07 09:00:00 97 % [facility] respiratory rate 2023-01-07 09:00:00 17 /min [facility] blood pressure systolic 2023-01-07 09:00:00 134 mm[Hg] [facility] blood pressure diastolic 2023-01-07 09:00:00 82 mm[Hg] [facility] height 2023-01-07 09:00:00 63.00 [in_i] Com [facility] weight 2023-01-07 09:00:00 193 [lb_av] [facility] temperature 2023-01-07 09:00:00 98.0 [degF] Com [facility] bmi 2023-01-07 09:00:00 34.18 kg/m2 [facility] oximetry 2023-01-07 09:00:00 97 % [facility] respiratory rate 2023-01-07 09:00:00 17 /min [facility] blood pressure systolic 2023-01-07 09:00:00 134 mm[Hg] [facility] blood pressure diastolic 2023-01-07 09:00:00 82 mm[Hg] [facility] height 2022-08-11 11:00:00 63.00 [in_i] Com [facility] weight 2022-08-11 11:00:00 193.6 [lb_av] [facility] temperature 2022-08-11 11:00:00 97.5 [degF] Com [facility] bmi 2022-08-11 11:00:00 34.29 kg/m2 [facility] oximetry 2022-08-11 11:00:00 97 % [facility] respiratory rate 2022-08-11 11:00:00 16 /min [facility] blood pressure systolic 2022-08-11 11:00:00 128 mm[Hg] [facility] blood pressure diastolic 2022-08-11 11:00:00 64 mm[Hg] [facility] height 2022-03-06 15:00:00 63.00 [in_i] Com [facility] weight 2022-03-06 15:00:00 191.2 [lb_av] [facility] temperature 2022-03-06 15:00:00 98.8 [degF] Com [facility] bmi 2022-03-06 15:00:00 33.87 kg/m2 [facility] oximetry 2022-03-06 15:00:00 97 % [facility] respiratory rate 2022-03-06 15:00:00 17 /min [facility] blood pressure systolic 2022-03-06 15:00:00 124 mm[Hg] [facility] blood pressure diastolic 2022-03-06 15:00:00 76 mm[Hg] [facility] height 2022-03-06 16:00:00 63.00 [in_i] Com [facility] weight 2022-03-06 16:00:00 191.2 [lb_av] [facility] temperature 2022-03-06 16:00:00 98.8 [degF] Com [facility] bmi 2022-03-06 16:00:00 33.87 kg/m2 [facility] oximetry 2022-03-06 16:00:00 97 % [facility] blood pressure systolic 2022-03-06 16:00:00 124 mm[Hg] [facility] 2022-03-06 16:00:00 76 mm[Hg] [facility] height 2022-02-06 11:00:00 63.00 [in_i] Com [facility] weight 2022-02-06 11:00:00 189 [lb_av] [facility] temperature 2022-02-06 11:00:00 97.7 [degF] Com [facility] bmi 2022-02-06 11:00:00 33.48 kg/m2 [facility] oximetry 2022-02-06 11:00:00 97 % [facility] respiratory rate 2022-02-06 11:00:00 22 /min [facility] blood pressure systolic 2022-02-06 11:00:00 122 mm[Hg] [facility] blood pressure diastolic 2022-02-06 11:00:00 80 mm[Hg] [facility] Body weight 2022-01-20 19:00:00 85.73 kg [facility] BMI 2022-01-20 19:00:00 35.71 kg/m2 [facility] Systolic blood pressure 2022-01-20 18:19:00 144 mm[Hg] [facility] Diastolic blood pressure 2022-01-20 18:19:00 96 mm[Hg] [facility] Heart rate 2022-01-20 18:19:00 86 /min [facility] Respiratory rate 2022-01-20 18:19:00 18 /min [facility] Body height 2022-01-20 18:19:00 154.9 cm [facility] Oxygen saturation in Arterial blood by Pulse oximetry 2022-01-20 18:19:00 96 /min [facility] height 2021-11-14 08:00:00 63.00 [in_i] Com [facility] weight 2021-11-14 08:00:00 191 [lb_av] Comm [facility] temperature 2021-11-14 08:00:00 97.7 [degF] Com [facility] bmi 2021-11-14 08:00:00 33.83 kg/m2 [facility] oximetry 2021-11-14 08:00:00 96 % Commo n [facility] respiratory rate 2021-11-14 08:00:00 18 /min [facility] blood pressure systolic 2021-11-14 08:00:00 138 mm[Hg] [facility] blood pressure diastolic 2021-11-14 08:00:00 82 mm[Hg] [facility] height 2021-07-11 10:00:00 63.00 [in_i] Com [facility] weight 2021-07-11 10:00:00 186 [lb_av] Comm on [facility] temperature 2021-07-11 10:00:00 97.8 [degF] Com [facility] bmi 2021-07-11 10:00:00 32.94 kg/m2 Comm on [facility] oximetry 2021-07-11 10:00:00 97 % Commo n [facility] respiratory rate 2021-07-11 10:00:00 19 /min [facility] blood pressure systolic 2021-07-11 10:00:00 158 mm[facility]Hg[facility] blood pressure diastolic 2021-07-11 10:00:00 91 mm[Hg] [facility] Procedures Procedure Date / Time Performed Performing Clinician Source MAGNESIUM 2025-01-31 11:34:00 Chucho Asher [facility] TROPONIN I 2025-01-31 11:34:00 Chucho Asher [facility] THYROID STIMULATING HORMONE 2025-01-31 11:34:00 Chucho Asher [facility] COMP. METABOLIC PANEL (40034) 2025-01-31 11:34:00 Chucho Asher [facility] CBC WITH DIFF 2025-01-31 11:34:[address] [facility] D-DIMER 2025-01-31 11:34:00 Chucho Asher [facility] N-TERMINAL PRO-BNP 2025-01-31 11:34:00 Chucho Asher [facility] REFERRAL- REQUEST/RESPONSE 2022-03-04 05:01:00 Doctor Unassigned, [place] [facility] INSURANCE CORRESPONDENCE 2021-11-15 06:01:00 Doc tor Unassigned, [place] [facility] Encounters Start Date/Time End Date/Time Encounter Type Admission Type Attending [facility] Facility Care Department Encounter ID Source 2024-09-15 14:20:00 Outpatient Rachel Krueger ST[facility] [id number] [facility] 2023-08-27 14:05:00 Outpatient Rachel Krueger STLC STLC [id number] [facility] 2023-05-27 14:14:00 Outpatient Rachel Krueger STLMLC STLC [id number] [facility] 2022-12-22 15:50:00 Outpatient Rachel Krueger STLMLC STLC [id number] [facility] 2022-12-17 13:38:00 Outpatient Rachel Krueger STLMLC STLC [id number] [facility] 2022-10-28 15:30:02 Outpatient Rachel Krueger STLC STLC [id number] [facility] 2022-08-06 10:43:01 Outpatient Malissa Up STLMLC [facility] [id number] [facility] 2022-03-12 12:16:[address] [facility] [id number] [facility] 2022-02-04 08:46:03 Outpatient Malissa Up STFRANK STLMLC [id number] [facility] 2022-01-20 14:20:12 Outpatient NIMESH DOMINGUEZ [facility] SPL [id number] [facility] 2021-11-13 10:14:03 Outpatient Malissa Up STFRANK STLMLC [id number] [facility] 2021-10-09 12:45:47 Outpatient Malissa Up STFRANK STLMLC [id number] [facility] 2021-10-09 12:44:30 Outpatient Malissa Up STCASIMIROLC STLMLC [id number] [facility] 2021-07-15 18:31:35 Emergency [facility] [id number] [facility] 2025-01-31 06:28:00 2025-01-31 08:08:00 Emergency X Chucho Asher [place] [facility] 1.2.840.114 350.1.13.10 4.2.7.2.686 [id number] [facility] 2025-01-04 00:00:00 2025-01-04 00:00:00 OFFICE VISIT ESTAB PT LEVEL 4 STLMLC STLMLC [id number] [facility] 2024-12-29 00:00:00 2024-12-29 00:00:00 (TEL) STLMLC STLMLC [id number] [facility] 2024-12-26 00:00:00 2024-12-26 00:00:00 (TEL) STLMLC STLMLC [id number] [facility] 2024-11-16 00:00:00 2024-11-16 14:52:23 Zeke Mojica [facility] 1.2.840.114 350.1.13.70 8.2.7.2.686 [id number] David schwartz [facility] 2024-10-26 13:32:30 2024-10-26 14:28:32 Outpatient Elective SELBST, ZEKE MHEOUT MHEOUT [id number] EOUT 2024-10-26 13:30:00 2024-10-26 14:28:32 Office Visit Selbst, Zeke Kelley [facility] 1.2.840.114 350.1.13.70 8.2.7.2.686 [id number] David schwartz [facility] 2024-10-12 13:40:00 2024-10-12 13:54:00 Consult Selbst, Zeke Kelley [facility] 1.2.840.114 350.1.13.70 8.2.7.2.686 [id number] David schwartz [facility] 2024-10-12 13:03:03 2024-10-12 13:54:00 Outpatient Elective SELBST, ZEKE MHEOUT MHEOUT [id number] EOUT 2024-09-26 14:11:53 2024-09-26 14:11:53 Outpatient Elective SELBST, ZEKE MHEOUT [facility]HE[facility] [id number]16 00:00:00 2024-09-16 00:00:00 OFFICE VISIT ESTAB PT LEVEL 4 STLMLC STLMLC [id number] [facility] 2024-06-14 00:00:00 2024-06-14 00:00:00 OFFICE VISIT ESTAB PT LEVEL 4 STLMLC STLMLC [id number] [facility] 2024-04-07 00:00:00 2024-04-07 00:00:00 (TEL) STLMLC STLMLC [id number] [facility] 2024-04-05 00:00:00 2024-04-05 00:00:00 (TEL) STLMLC STLMLC [id number] [facility] 2024-03-24 00:00:00 2024-03-24 00:00:00 (TEL) STLMLC STLMLC [id number] [facility] 2024-03-09 00:00:00 2024-03-09 00:00:00 OFFICE VISIT ESTAB PT LEVEL 4 STLMLC STLMLC [id number] [facility] 2024-03-07 00:00:00 2024-03-07 00:00:00 (TEL) STLMLC STLMLC [id number] [facility] 2024-02-01 00:00:00 2024-02-01 00:00:00 [facility] ST[facility] [id number] [facility] 2024-02-01 00:00:00 2024-02-01 00:00:00 OFFICE VISIT ESTAB PT LEVEL 4 STLMLC STLC [id number] [facility] 2023-12-22 13:40:00 2023-12-22 14:02:54 Outpatient R MYA GONZALEZ [facility] [id number] [facility] 2023-12-22 13:40:00 2023-12-22 14:02:54 Urgent Care Mya Gonzalez Unknown, Attending [facility] 1.2.840.114 350.1.13.10 4.2.7.2.686 [id number] [facility] 2023-12-22 00:00:00 2023-12-22 00:00:00 Refill Mya Gonzalez [facility] 1.2.840.114 350.1.13.10 4.2.7.2.686 [id number] [facility] 2023-08-28 00:00:00 2023-08-28 00:00:00 OFFICE VISIT ESTAB PT LEVEL 4 STLMLC STLC [id number] [facility] 2023-05-28 00:00:00 2023-05-28 00:00:00 OFFICE VISIT ESTAB PT LEVEL 4 STLMLC STLMLC [id number] [facility] 2023-03-02 00:00:00 2023-03-02 00:00:00 (TEL) STLMLC STLMLC [id number] [facility] 2023-02-27 00:00:00 2023-02-27 00:00:00 OFFICE VISIT ESTAB PT LEVEL 4 STLMLC STLMLC [id number] [facility] 2023-02-27 00:00:00 2023-02-27 00:00:00 (TEL) STLMLC STLMLC [id number] [facility] 2023-01-07 00:00:00 2023-01-07 00:00:00 [facility] STLML[facility] STLMLC [id number] [facility] 2023-01-07 00:00:00 2023-01-07 00:00:00 OFFICE VISIT ESTAB PT LEVEL 4 STLMLC STLMLC [id number] [facility] 2022-10-28 00:00:00 2022-10-28 00:00:00 (TEL) STLMLC STLMLC [id number] [facility] 2022-08-11 00:00:00 2022-08-11 00:00:00 OFFICE VISIT EST PT LEVEL 3 STLMLC STLMLC [id number] [facility] 2022-04-29 00:00:00 2022-04-29 00:00:00 (TEL) STLMLC STLMLC [id number] [facility] 2022-04-02 13:00:00 2022-04-02 13:00:00 Outpatient NORMA CAMARILLO [facility] [id number] [facility] 2022-03-25 11:00:00 2022-03-25 11:00:00 Outpatient NORMA CAMARILLO [facility] [id number] [facility] 2022-03-25 00:00:00 2022-03-25 00:00:00 Telephone Norma Lynn [facility] 1..840.114 350.1.13.10 4.2.7.2.686 [id number] [facility] 2022-03-06 00:00:00 2022-03-06 00:00:00 SUB [facility] STLMLC STLMLC [id number] [facility] 2022-03-06 00:00:00 2022-03-06 00:00:00 NO CHARGE STLMLC STLMLC [id number] [facility] 2022-03-04 00:00:00 2022-03-04 00:00:00 Orders Only Doctor Unassigned, [place] [facility] 1.2.840.114 350.1.13.10 4.2.7.2.686 [id number] [facility] 2022-02-27 00:00:00 2022-02-27 00:00:00 (TEL) STLMLC STLMLC [id number] [facility] 2022-02-06 00:00:00 2022-02-06 00:00:00 OFFICE VISIT EST PT LEVEL 3 STLMLC STLMLC [id number] [facility] 2022-01-20 14:15:00 2022-01-20 14:15:00 Outpatient NIMESH SOLIS [facility] [id number] [facility] 2022-01-20 14:15:00 2022-01-20 14:15:00 Office Visit Nimesh Dominguez [facility] 1..840.114 350.1.13.10 4.2.7.2.686 [id number] [facility] 2022-01-20 14:15:00 2022-01-20 14:08:53 Outpatient NIMESH SOLIS [facility] [id number] [facility] 2021-11-28 00:00:00 2021-11-28 00:00:00 (TEL) [facility] [id number] [facility] 2021-11-28 00:00:00 2021-11-28 00:00:00 Orders Only Doctor Unassigned, [place] [facility] 1.2.840.114 350.1.13.10 4.2.7.2.686 [id number] [facility] 2021-11-15 00:00:00 2021-11-15 00:00:00 Orders Only Doctor Unassigned, [place] [facility] 1.2.840.114 350.1.13.10 4.2.7.2.686 [id number] [facility] 2021-11-14 00:00:00 2021-11-14 00:00:00 OFFICE VISIT ESTAB PT LEVEL 4 [facility] [id number] [facility] 2021-11-04 00:00:00 2021-11-04 00:00:00 Orders Only Doctor Unassigned, [place] [facility] 1.2.840.114 350.1.13.10 4.2.7.2.686 [id number] [facility] 2021-11-01 00:00:00 2021-11-01 00:00:00 (TEL) [facility] [id number] [facility] 2021-10-29 14:20:00 2021-10-29 14:40:00 [facility] 1.2.840.114 350.1.13.10 4.2.7.2.686 [id number] [facility] 2021-10-29 14:20:00 2021-10-29 14:20:00 Outpatient [facility] [id number] [facility] 2021-07-11 00:00:00 2021-07-11 00:00:00 OFFICE VISIT EST PT LEVEL 3 STLMLC STLMLC [id number] [facility] 2021-05-14 17:30:00 2021-05-14 17:30:00 Outpatient SATINDER SALCEDO [facility] [id number] [facility] 2021-05-14 17:30:00 2021-05-14 17:30:00 Outpatient SATINDER SALCEDO [facility] [id number] [facility] 2021-05-14 15:36:39 2021-05-14 16:36:39 Nurse Visit Therapy, Adc Covid Satinder Tarango [facility] 1.2.840.114 350.1.13.10 4.2.7.2.686 [id number] [facility] 2021-05-14 00:00:00 2021-05-14 00:00:00 Orders Only Doctor Unassigned, [place] [facility] 1.2.840.114 350.1.13.10 4.2.7.2.686 [id number] [facility] 2021-05-10 09:51:00 2021-05-10 11:01:00 Emergency Eduar Lawson B [facility] 1.2.840.114 350.1.13.10 4.2.7.2.686 [id number] [facility] 2021-05-10 00:00:00 2021-05-10 00:00:00 Orders Only Doctor Unassigned, [place] [facility] 1.2.840.114 350.1.13.10 4.2.7.2.686 [id number] [facility] 2021-01-18 00:00:00 2021-01-18 00:00:00 Outpatient STLMLC STLMLC [id number] [facility] 2021-01-10 00:00:00 2021-01-10 00:00:00 Outpatient STLMLC STLMLC [id number] [facility] 2021-01-10 00:00:00 2021-01-10 00:00:00 Outpatient STLMLC STLMLC [id number] [facility] 2021-01-08 00:00:00 2021-01-08 00:00:00 Outpatient STLMLC STLMLC [id number] [facility] 2020-12-17 00:00:00 2020-12-17 00:00:00 Outpatient STLMLC STLMLC [id number] [facility] 2020-12-06 00:00:00 2020-12-06 00:00:00 Outpatient STLMLC STLMLC [id number] [facility] 2020-12-06 00:00:00 2020-12-06 00:00:00 Outpatient STLMLC STLMLC [id number] [facility] 2020-09-04 00:00:00 2020-09-04 00:00:00 Telephone Only, Adc Test [facility] 1.840.114 350.1.13.10 4.2.7.2.686 [id number] [facility] 2020-09-03 14:15:00 2020-09-03 14:15:00 Outpatient R [facility] [id number] [facility] 2020-09-03 13:42:30 2020-09-03 13:57:30 Laboratory Only Only, Adc Test Zoya Zhang [facility] 1.840.114 350.1.13.10 4.2.7.2.686 [id number] [facility] 2020-09-03 00:00:00 2020-09-03 00:00:00 Orders Only Doctor Unassigned, [place] [facility] 1.2.840.114 350.1.13.10 4.2.7.2.686 [id number] [facility] 2020-08-13 00:00:00 2020-08-13 00:00:00 Telephone Lab, Adc Fam Pob I [facility] 1.2.840.114 350.1.13.10 4.2.7.2.686 [id number] [facility] 2020-08-06 15:00:27 2020-08-06 15:15:27 Laboratory Only Only, Adc Test Zoya Zhang [facility] 1.2.840.114 350.1.13.10 4.2.7.2.686 [id number] [facility] 2020-08-06 15:15:00 2020-08-06 15:15:00 Outpatient R ISHA [facility] [id number] [facility] 2020-08-06 00:00:00 2020-08-06 00:00:00 Orders Only Doctor Unassigned, [place] [facility] 1.2.840.114 350.1.13.10 4.2.7.2.686 [id number] [facility] 2020-03-05 10:57:13 2020-03-05 11:39:00 Emergency Serge Moody [facility] 1.2.840.114 350.1.13.10 4.2.7.2.686 [id number] [facility] 2020-03-05 10:32:00 2020-03-05 10:32:00 Emergency X [facility] ERT [id number] [facility] 2020-03-05 00:00:00 2020-03-05 00:00:00 Orders Only Doctor Unassigned, [place] [facility] 1.2.840.114 350.1.13.10 4.2.7.2.686 [id number] [facility] Results Test Description Test Time Test Comments Results Result Co mments Source [id number] 12:17:51* Test Item Value Reference Range Interpretation Comme nts TROPONIN I (test code = 4584589373) 0.001 ng/mL <=0.034 JARETH (test code = JARETH) Reference (Normal) Range (defined by the 99th percentile reference limit): <= 0.034 ng/mL Note: Cardiac troponin begins to rise 3-4 hours after the onset of ischemia. Repeat in 4-6 hours if the sample was drawn within 3-4 hours of the onset of the symptom and found normal. Diagnosis of myocardial injury is made with acute changes in cTn concentrations with at least one serial sample above the 99th percentile upper reference limit (URL), taken together with the patient's clinical presentation. Biotin has been reported to cause a negative bias, interpret results relative to patient's use of biotin. Lab Interpretation (test code = 55800-7) Normal [facility] Vwc-Kor7624-87-20 12:15:29* Test Item Value Reference Range Interpretation Comme nts NT-proBNP (test code = 34999-3) 113 pg/mL <=125 Lab Interpretation (test cod e = 31621-3) Normal [facility]Mnkfv4441-23-11 12:12:48* Test Item Value Reference Range Interpretation Comments D-DIMER (test code = 4838718168) 0.28 See_Comment [Automated message] The system which generated this result transmitted reference range: <0.50 ?g/mL (FEU). The reference range was not used to interpret this result as normal/abnormal. JARETH (test code = JARETH) This test may be used in conjunction with a clinical pretest probability (PTP) assessment model to exclude venous thromboembolism (VTE) in patients suspected of deep venous thrombosis (DVT) and pulmonary embolism (PE) A D-Dimer value less than 0.50 ?g/ml (FEU) has a negative predicative value of 96 to 100% (95% CI)and 97 to 100% (95% CI) as an aid in the diagnosis of deep vein thrombosis (DVT) and pulmonary embolism when there is low or moderate pretest probability of PE or DVT. D-Dimer values are expressed in initial fibrinogen equivalent units (FEU)" The assay results should be used with other information, including the clinical context, in forming a diagnosis. Lab Interpretation (test code = 73249-3) Normal [facility] (76679)2025-01-31 12:06:10* Test Item Value Reference Range Interpretation Comme nts NA (test code = 4473115493) 141 mmol/L 135-145 K (test code = 5870696025) 3.5 mmol/L 3.5-5.0 CL (test code = 4255290811) 103 mmol/L 98-108 CO2 TOTAL (test code = 0608797799) 29 mmol/L 23-31 AGAP (test code = 4185881907) 9 2-16 BUN (test code = 3543027715) 10 mg/dL 7-23 GLUCOSE (test code = 8535478647) 137 mg/dL 70-110 H CREATININE (test code = 2160-0) 0.71 mg/dL 0.50-1.04 TOTAL BILI (test code = 1716067661) 1.3 mg/dL 0.1-1.1 H CALCIUM (test code = 3610361699) 9.5 mg/dL 8.6-10.6 T PROTEIN (test code = 3913518742) 8 g/dL 6.3-8.2 ALBUMIN (test code = 3180248627) 4.7 g/dL 3.5-5.0 ALK PHOS (test code = 9667867254) 94 U/L 34-122 ALTv (test code = 1742-6) 23 U/L 5-35 AST(SGOT) (test code = 3689871964) 26 U/L 13-40 eGFR (test code = 48007-6) 91.6 mL/min/1.73m2 CKD-EPI eGFR (2020). Assuming creatinine has been stable day-to-day for at least three months, the eGFR indicates Category G1 (>= 90 mL/min/1.73 m2) Lab Interpretation (test code = 44175-0) Abnormal [facility] 12:06:10* Test Item Value Reference Range Interpretation Comme nts MAGNESIUM (test code = 2698840541) 1.8 mg/dL 1.7-2.4 Lab Interpretation (test cod e = 82840-3) Normal [facility] with Ycgc5385-44-65 11:51:07* Test Item Value Reference Range Interpretation Comme nts WBC (test code = 6690-2) 7.65 4.30-11.10 RBC (test code = 789-8) 4.35 3.93-5.25 HGB (test code = 718-7) 13.8 g/dL 11.6-15.0 HCT (test code = 4544-3) 40.5 % 35.7-45.2 MCV (test code = 787-2) 93.1 fL 80.6-95.5 MCH (test code = 785-6) 31.7 pg 25.9-32.8 MCHC (test code = 786-4) 34.1 g/dL 31.6-35.1 RDW-SD (test code = 92621-6) 43.8 fL 39.0-49.9 RDW-CV (test code = 788-0) 12.7 % 12.0-15.5 PLT (test code = 777-3) 280 166-358 MPV (test code = 57077-8) 10.5 fL 9.5-12.9 NRBC/100 WBC (test code = 4070402121) 0 0.0-10.0 NRBC x10^3 (test code = 5342881690) See_Comment [Automated me ssage] The system which generated this result transmitted reference range: 10*3/?L. The reference range was not used to interpret this result as normal/abnormal. GRAN MAT (NEUT) % (test code = 770-8) 62.6 % IMM GRAN % (test code = 3704055793) 0.4 % LYMPH % (test code = 736-9) 29.5 % MONO % (test code = 5905-5) 6.3 % EOS % (test code = 713-8) 0.8 % BASO % (test code = 706-2) 0.4 % GRAN MAT x10^3(ANC) (test code = 6422377268) 4.79 10*3/uL 1.88-7.09 IMM GRAN x10^3 (test code = 4403218157) 0.03 10*3/uL 0.00-0.06 LYMPH x10^3 (test code = 731-0) 2.26 10*3/uL 1.32-3.29 MONO x10^3 (test code = 742-7) 0.48 10*3/uL 0.33-0.92 EOS x10^3 (test code = 711-2) 0.06 10*3/uL 0.03-0.39 BASO x10^3 (test code = 704-7) 0.03 10*3/uL 0.01-0.07 [facility] [id number] 00:00:00* Test Item Value Reference Range Interpretation Comme nts NUCLEATED RBCS (test code = 49968-9) 0.0 /100 WBC'S See_Comment [Automated message] The system which generated this result transmitted reference range: 0.0 /100 WBC'S. The reference range was not used to interpret this result as normal/abnormal. ABSOLUTE EOSINOPHILS (test code = 02382-7) 0.19 K/UL See_Comment [Automated message] The system which generated this result transmitted reference range: 0.00-0.50 K/UL. The reference range was not used to interpret this result as normal/abnormal. ABSOLUTE LYMPHOCYTES (test code = 66607-2) 1.89 K/UL See_Comment [Automated message] The system which generated this result transmitted reference range: 1.00-4.00 K/UL. The reference range was not used to interpret this result as normal/abnormal. ABSOLUTE MONOCYTES (test code = 34450-0) 0.43 K/UL See_Comment [Automated message] The system which generated this result transmitted reference range: 0.20-1.00 K/UL. The reference range was not used to interpret this result as normal/abnormal. ABSOLUTE NEUTROPHILS (test code = 43849-1) 3.48 K/UL See_Comment [Automated message] The system which generated this result transmitted reference range: 1.50-7.50 K/UL. The reference range was not used to interpret this result as normal/abnormal. BASOPHILS (test code = 52207-0) 1.3 % EOSINOPHILS (test code = 61936-9) 3.1 % HEMATOCRIT (test code = 76323-8) 39.4 % See_Comment [Automated messa ge] The system which generated this result transmitted reference range: 34.0-45.0 %. The reference range was not used to interpret this result as normal/abnormal. HEMOGLOBIN (test code = 718-7) 13.1 G/DL See_Comment [Automated messa ge] The system which generated this result transmitted reference range: 11.5-15.5 G/DL. The reference range was not used to interpret this result as normal/abnormal. LYMPHOCYTES (test code = 40253-4) 31.0 % MCH (test code = 42760-2) 30.8 PG See_Comment [Automated messa ge] The system which generated this result transmitted reference range: 25.0-33.0 PG. The reference range was not used to interpret this result as normal/abnormal. MCHC (test code = 21478-2) 33.2 G/DL See_Comment [Automated messa ge] The system which generated this result transmitted reference range: 31.0-36.0 G/DL. The reference range was not used to interpret this result as normal/abnormal. MCV (test code = 02504-4) 92.7 fL See_Comment [Automated messa ge] The system which generated this result transmitted reference range: 80.0-99.0 fL. The reference range was not used to interpret this result as normal/abnormal. MONOCYTES (test code = 42684-3) 7.1 % NEUTROPHILS (test code = 56702-5) 57.2 % PLATELET COUNT (test code = 19345-2) 287 K/UL See_Comment [Automated messa ge] The system which generated this result transmitted reference range: 130-400 K/UL. The reference range was not used to interpret this result as normal/abnormal. RBC (test code = 77487-3) 4.25 M/UL See_Comment [Automated messa ge] The system which generated this result transmitted reference range: 3.80-5.40 M/UL. The reference range was not used to interpret this result as normal/abnormal. RDW (test code = 33638-1) 12.4 % See_Comment [Automated messa ge] The system which generated this result transmitted reference range: 11.5-15.0 %. The reference range was not used to interpret this result as normal/abnormal. WBC (test code = 73855-8) 6.1 K/UL See_Comment [Automated messa ge] The system which generated this result transmitted reference range: 3.5-11.0 K/UL. The reference range was not used to interpret this result as normal/abnormal. VITAMIN D, 25 OH (test code = 1988-11) 38 NG/ML SEE BELOW NG/ML CALC LDL CHOL (test code = 28125-3) 56 MG/DL See_Comment [Automated messa ge] The system which generated this result transmitted reference range: <100 MG/DL. The reference range was not used to interpret this result as normal/abnormal. CHOLESTEROL (test code = 2092-3) 156 MG/DL See_Comment [Automated messa ge] The system which generated this result transmitted reference range: <200 MG/DL. The reference range was not used to interpret this result as normal/abnormal. HDL CHOLESTEROL (test code = 2084-9) 77 MG/DL See_Comment [Automated messa ge] The system which generated this result transmitted reference range: >39 MG/DL. The reference range was not used to interpret this result as normal/abnormal. RISK RATIO LDL/HDL (test code = 60678-5) 0.73 RATIO See_Comment [Automated message] The system which generated this result transmitted reference range: <3.22 RATIO. The reference range was not used to interpret this result as normal/abnormal. TRIGLYCERIDES (test code = 2571-8) 143 MG/DL See_Comment [[employer]] The system which generated this result transmitted reference range: <150 MG/DL. The reference range was not used to interpret this result as normal/abnormal. ALBUMIN (test code = 1751-7) 4.5 G/DL See_Comment [[employer]] The system which generated this result transmitted reference range: 3.5-5.2 G/DL. The reference range was not used to interpret this result as normal/abnormal. ALKALINE PHOSPHATASE (test code = 6768-6) 112 U/L See_Comment [Automated message] The system which generated this result transmitted reference range: 40-142 U/L. The reference range was not used to interpret this result as normal/abnormal. BILIRUBIN, TOTAL (test code = 1975-2) 0.8 MG/DL See_Comment [[employer]] The system which generated this result transmitted reference range: <=1.2 MG/DL. The reference range was not used to interpret this result as normal/abnormal. BUN (test code = 3094-0) 11 MG/DL See_Comment [[employer]] The system which generated this result transmitted reference range: 8-23 MG/DL. The reference range was not used to interpret this result as normal/abnormal. CALCIUM (test code = 98974-8) 10.4 MG/DL See_Comment [Automated mess[employer] ge] The system which generated this result transmitted reference range: 8.5-10.5 MG/DL. The reference range was not used to interpret this result as normal/abnormal. CALC A/G RATIO (test code = 1759-0) 1.9 RATIO See_Comment [[employer]ated mess[employer] ge] The system [...] as normal/abnormal. CALC GLOBULIN (test code = 33715-4) 2.4 G/DL See_Comment [Automated mess[employer] ge] The system [...] as normal/abnormal. CHLORIDE (test code = 2075-0) 103 MEQ/L See_Comment [[employer] mess[employer] ge] The system which generated this result transmitted reference range: 95-107 MEQ/L. The reference range was not used to interpret this result as normal/abnormal. CREATININE (test code = 2160-0) 0.82 MG/DL See_Comment [[employer]ated mess[employer] ge] The system which generated this result transmitted reference range: 0.60-1.30 MG/DL. The reference range was not used to interpret this result as normal/abnormal. eGFR (2020 CKD-EPI) (test code = 20797-1) 77 ML/MIN/1.73 See_Comment [Automated message] The system which generated this result transmitted reference range: >60 ML/MIN/1.73. The reference range was not used to interpret this result as normal/abnormal. GLUCOSE (test code = 1558-6) 126 MG/DL See_Comment H [[employer]ated mess[employer] ge] The system which generated this result transmitted reference range: 70-99 MG/DL. The reference range was not used to interpret this result as normal/abnormal. POTASSIUM (test code = 2823-3) 4.4 MEQ/L See_Comment [Automated messa ge] The system which generated this result transmitted reference range: 3.5-5.4 MEQ/L. The reference range was not used to interpret this result as normal/abnormal. PROTEIN, TOTAL (test code = 2885-2) 6.9 G/DL See_Comment [[employer] mess[employer] ge] The system which generated this result transmitted reference range: 6.1-8.3 G/DL. The reference range was not used to interpret this result as normal/abnormal. AST (test code = 1920-8) 27 U/L See_Comment [[employer]ated mess[employer] ge] The system [...] as normal/abnormal. SODIUM (test code = 2951-2) 143 MEQ/L See_Comment [[employer] mess[employer] ge] The system which generated this result transmitted reference range: 133-146 MEQ/L. The reference range was not used to interpret this result as normal/abnormal. COMPREHENSIVE METABOLIC [id number] 00:00:00* Test Item Value Reference Range Interpretation Comme nts NUCLEATED RBCS (test code = 19471-7) 0.0 /100 WBC'S See_Comment [Automated message] The system which generated this result transmitted reference range: 0.0 /100 WBC'S. The reference range was not used to interpret this result as normal/abnormal. ABSOLUTE EOSINOPHILS (test code = 95894-1) 0.18 K/UL See_Comment [Automated message] The system which generated this result transmitted reference range: 0.00-0.50 K/UL. The reference range was not used to interpret this result as normal/abnormal. ABSOLUTE LYMPHOCYTES (test code = 91970-8) 1.82 K/UL See_Comment [Automated message] The system which generated this result transmitted reference range: 1.00-4.00 K/UL. The reference range was not used to interpret this result as normal/abnormal. ABSOLUTE MONOCYTES (test code = 49737-6) 0.51 K/UL See_Comment [Automated message] The system which generated this result transmitted reference range: 0.20-1.00 K/UL. The reference range was not used to interpret this result as normal/abnormal. ABSOLUTE NEUTROPHILS (test code = 06610-0) 5.08 K/UL See_Comment [Automated message] The system which generated this result transmitted reference range: 1.50-7.50 K/UL. The reference range was not used to interpret this result as normal/abnormal. BASOPHILS (test code = 02628-7) 0.7 % EOSINOPHILS (test code = 28784-6) 2.3 % HEMATOCRIT (test code = 66781-5) 40.3 % See_Comment [Automated mess[employer] ge] The [...] result as normal/abnormal. LYMPHOCYTES (test code = 72481-3) 23.7 % MCH (test code = 84661-6) 30.8 PG See_Comment [Automated mess[employer] ge] The system which generated this result transmitted reference range: 25.0-33.0 PG. The reference range was not used to interpret this result as normal/abnormal. MCHC (test code = 71246-4) 33.0 G/DL See_Comment [Automated mess[employer] ge] The system which generated this result transmitted reference range: 31.0-36.0 G/DL. The reference range was not used to interpret this result as normal/abnormal. MCV (test code = 69901-6) 93.3 fL See_Comment [Automated mess[employer] ge] The system which generated this result transmitted reference range: 80.0-99.0 fL. The reference range was not used to interpret this result as normal/abnormal. MONOCYTES (test code = 52925-0) 6.6 % NEUTROPHILS (test code = 17558-7) 66.3 % PLATELET COUNT (test code = 01707-6) 339 K/UL See_Comment [[employer]] The system which generated this result transmitted reference range: 130-400 K/UL. The reference range was not used to interpret this result as normal/abnormal. RBC (test code = 30325-9) 4.32 M/UL See_Comment [[employer]] The system which generated this result transmitted reference range: 3.80-5.40 M/UL. The reference range was not used to interpret this result as normal/abnormal. RDW (test code = 97810-2) 11.9 % See_Comment [[employer]] The system which generated this result transmitted reference range: 11.5-15.0 %. The reference range was not used to interpret this result as normal/abnormal. WBC (test code = 43153-4) 7.7 K/UL See_Comment [[employer]] The system which generated this result transmitted reference range: 3.5-11.0 K/UL. The reference range was not used to interpret this result as normal/abnormal. VITAMIN D, 25 OH (test code = 1988-) 30 NG/ML SEE BELOW NG/ML CALC LDL CHOL (test code = 43322-1) 69 MG/DL See_Comment [[employer]] The system which generated this result transmitted reference range: <100 MG/DL. The reference range was not used to interpret this result as normal/abnormal. CHOLESTEROL (test code = 2093-3) 177 MG/DL See_Comment [[employer]] The system which generated this result transmitted reference range: <200 MG/DL. The reference range was not used to interpret this result as normal/abnormal. HDL CHOLESTEROL (test code = 2085-9) 85 MG/DL See_Comment [[employer]] The system which generated this result transmitted reference range: >39 MG/DL. The reference range was not used to interpret this result as normal/abnormal. RISK RATIO LDL/HDL (test code = 46786-5) 0.81 RATIO See_Comment [Automated message] The system which generated this result transmitted reference range: <3.22 RATIO. The reference range was not used to interpret this result as normal/abnormal. TRIGLYCERIDES (test code = 2571-8) 147 MG/DL See_Comment [[employer] mess[employer] ge] The system which generated this result transmitted reference range: <150 MG/DL. The reference range was not used to interpret this result as normal/abnormal. ALBUMIN (test code = 1751-7) 4.5 G/DL See_Comment [[employer]ated mess[employer] ge] The system [...] result as normal/abnormal. CALCIUM (test code = 84433-1) 10.2 MG/DL See_Comment [[employer]ated messa ge] The [...] as normal/abnormal. CALC GLOBULIN (test code = 33710-8) 2.6 G/DL See_Comment [[employer]ated messa ge] The system which generated this result transmitted reference range: 1.9-3.7 G/DL. The reference range was not used to interpret this result as normal/abnormal. CARBON DIOXIDE (test code = 1962-8) 28 MEQ/L See_Comment [[employer]ated mess[employer] ge] The [...] normal/abnormal. eGFR (2020 CKD-EPI) (test code = 49437-7) 65 ML/MIN/1.73 See_Comment [Automated message] The system [...] used to interpret this result as normal/abnormal. [id number] 00:00:00resultHEMOGLOBIN [id number] 00:00:00* Test Item Value Reference Range Interpretation Comme nts HEMOGLOBIN A1c (test code = 4548-4) 5.9 % See_Comment H [[employer] mess[employer] ge] The system which generated this result transmitted reference range: 4.2-5.6 %. The reference range was not used to interpret this result as normal/abnormal. CBC W/AUTO [id number] 00:00:00* Test Item Value Reference Range Interpretation Comme nts NUCLEATED RBCS (test code = 56738-8) 0.0 /100 WBC'S See_Comment [[employer] mess[employer] ge] The system which generated this result transmitted reference range: 0.0 /100 WBC'S. The reference range was not used to interpret this result as normal/abnormal. ABSOLUTE EOSINOPHILS (test code = 09669-6) 0.06 K/UL See_Comment [[employer]ated mess[employer] ge] The system which generated this result transmitted reference range: 0.00-0.50 K/UL. The reference range was not used to interpret this result as normal/abnormal. ABSOLUTE LYMPHOCYTES (test code = 29373-2) 1.80 K/UL See_Comment [[employer] mess[employer] ge] The system which generated this result transmitted reference range: 1.00-4.00 K/UL. The reference range was not used to interpret this result as normal/abnormal. ABSOLUTE MONOCYTES (test code = 12834-8) 0.56 K/UL See_Comment [[employer] mess[employer] ge] The system which generated this result transmitted reference range: 0.20-1.00 K/UL. The reference range was not used to interpret this result as normal/abnormal. ABSOLUTE NEUTROPHILS (test code = 40008-4) 4.90 K/UL See_Comment [Automated messa ge] The system which generated this result transmitted reference range: 1.50-7.50 K/UL. The reference range was not used to interpret this result as normal/abnormal. BASOPHILS (test code = 12545-7) 0.7 % EOSINOPHILS (test code = 17816-5) 0.8 % HEMATOCRIT (test code = 67169-2) 39.7 % See_Comment [Automated messa ge] The [...] result as normal/abnormal. LYMPHOCYTES (test code = 42300-6) 24.2 % MCH (test code = 47697-7) 33.2 PG See_Comment H [Automated messa ge] The system which generated this result transmitted reference range: 25.0-33.0 PG. The reference range was not used to interpret this result as normal/abnormal. MCHC (test code = 51304-3) 33.8 G/DL See_Comment [Automated mess[employer] ge] The system which generated this result transmitted reference range: 31.0-36.0 G/DL. The reference range was not used to interpret this result as normal/abnormal. MCV (test code = 33794-7) 98.3 fL See_Comment [Automated messa ge] The system which generated this result transmitted reference range: 80.0-99.0 fL. The reference range was not used to interpret this result as normal/abnormal. MONOCYTES (test code = 78333-3) 7.5 % NEUTROPHILS (test code = 08084-0) 66.0 % PLATELET COUNT (test code = 47149-5) 298 K/UL See_Comment [Automated messa ge] The system which generated this result transmitted reference range: 130-400 K/UL. The reference range was not used to interpret this result as normal/abnormal. RBC (test code = 40142-3) 4.04 M/UL See_Comment [Automated messa ge] The system which generated this result transmitted reference range: 3.80-5.40 M/UL. The reference range was not used to interpret this result as normal/abnormal. RDW (test code = 95437-9) 12.5 % See_Comment [Automated messa ge] The system which generated this result transmitted reference range: 11.5-15.0 %. The reference range was not used to interpret this result as normal/abnormal. WBC (test code = 84443-6) 7.4 K/UL See_Comment [Automated messa ge] The system which generated this result transmitted reference range: 3.5-11.0 K/UL. The reference range was not used to interpret this result as normal/abnormal. CBC W/AUTO [id number] 00:00:00* Test Item Value Reference Range Interpretation Comme nts NUCLEATED RBCS (test code = 16473-5) 0.0 /100 WBC'S See_Comment [[employer] mess[employer] ge] The system which generated this result transmitted reference range: 0.0 /100 WBC'S. The reference range was not used to interpret this result as normal/abnormal. ABSOLUTE EOSINOPHILS (test code = 81015-9) 0.06 K/UL See_Comment [Automated messa ge] The system which generated this result transmitted reference range: 0.00-0.50 K/UL. The reference range was not used to interpret this result as normal/abnormal. ABSOLUTE LYMPHOCYTES (test code = 90731-8) 1.85 K/UL See_Comment [Automated messa ge] The system which generated this result transmitted reference range: 1.00-4.00 K/UL. The reference range was not used to interpret this result as normal/abnormal. ABSOLUTE MONOCYTES (test code = 34345-8) 0.47 K/UL See_Comment [Automated mess[employer] ge] The system which generated this result transmitted reference range: 0.20-1.00 K/UL. The reference range was not used to interpret this result as normal/abnormal. ABSOLUTE NEUTROPHILS (test code = 72465-2) 3.20 K/UL See_Comment [Automated messa ge] The system which generated this result transmitted reference range: 1.50-7.50 K/UL. The reference range was not used to interpret this result as normal/abnormal. BASOPHILS (test code = 85058-6) 0.9 % EOSINOPHILS (test code = 63018-1) 1.1 % HEMATOCRIT (test code = 83426-3) 41.0 % See_Comment [Automated messa ge] The [...] result as normal/abnormal. LYMPHOCYTES (test code = 78933-2) 32.7 % MCH (test code = 45524-2) 32.4 PG See_Comment [[employer]ated mess[employer] ge] The system which generated this result transmitted reference range: 25.0-33.0 PG. The reference range was not used to interpret this result as normal/abnormal. MCHC (test code = 74832-7) 34.1 G/DL See_Comment [Automated messa ge] The system which generated this result transmitted reference range: 31.0-36.0 G/DL. The reference range was not used to interpret this result as normal/abnormal. MCV (test code = 71530-7) 94.9 fL See_Comment [Automated messa ge] The system which generated this result transmitted reference range: 80.0-99.0 fL. The reference range was not used to interpret this result as normal/abnormal. MONOCYTES (test code = 16912-8) 8.3 % NEUTROPHILS (test code = 71940-4) 56.6 % PLATELET COUNT (test code = 53861-2) 278 K/UL See_Comment [Automated messa ge] The system which generated this result transmitted reference range: 130-400 K/UL. The reference range was not used to interpret this result as normal/abnormal. RBC (test code = 61668-9) 4.32 M/UL See_Comment [Automated messa ge] The system which generated this result transmitted reference range: 3.80-5.40 M/UL. The reference range was not used to interpret this result as normal/abnormal. RDW (test code = 19821-1) 12.9 % See_Comment [Automated messa ge] The system which generated this result transmitted reference range: 11.5-15.0 %. The reference range was not used to interpret this result as normal/abnormal. WBC (test code = 31048-5) 5.7 K/UL See_Comment [Automated messa ge] The system which generated this result transmitted reference range: 3.5-11.0 K/UL. The reference range was not used to interpret this result as normal/abnormal. CBC W/AUTO [id number] 00:00:00* Test Item Value Reference Range Interpretation Comme nts NUCLEATED RBCS (test code = 59755-9) 0.0 /100 WBC'S See_Comment [Automated messa ge] The system which generated this result transmitted reference range: 0.0 /100 WBC'S. The reference range was not used to interpret this result as normal/abnormal. ABSOLUTE EOSINOPHILS (test code = 22379-8) 0.09 K/UL See_Comment [Automated messa ge] The system which generated this result transmitted reference range: 0.00-0.50 K/UL. The reference range was not used to interpret this result as normal/abnormal. ABSOLUTE LYMPHOCYTES (test code = 63891-8) 2.10 K/UL See_Comment [Automated messa ge] The system which generated this result transmitted reference range: 1.00-4.00 K/UL. The reference range was not used to interpret this result as normal/abnormal. ABSOLUTE MONOCYTES (test code = 16006-2) 0.52 K/UL See_Comment [Automated messa ge] The system which generated this result transmitted reference range: 0.20-1.00 K/UL. The reference range was not used to interpret this result as normal/abnormal. ABSOLUTE NEUTROPHILS (test code = 93148-0) 3.49 K/UL See_Comment [Automated messa ge] The system which generated this result transmitted reference range: 1.50-7.50 K/UL. The reference range was not used to interpret this result as normal/abnormal. BASOPHILS (test code = 76366-6) 1.1 % EOSINOPHILS (test code = 37158-4) 1.4 % HEMATOCRIT (test code = 93358-3) 39.9 % See_Comment [Automated messa ge] The [...] result as normal/abnormal. LYMPHOCYTES (test code = 50324-2) 33.3 % MCH (test code = 55375-5) 31.4 PG See_Comment [Automated messa ge] The system which generated this result transmitted reference range: 25.0-33.0 PG. The reference range was not used to interpret this result as normal/abnormal. MCHC (test code = 49986-1) 34.6 G/DL See_Comment [Automated messa ge] The system which generated this result transmitted reference range: 31.0-36.0 G/DL. The reference range was not used to interpret this result as normal/abnormal. MCV (test code = 39973-5) 90.9 fL See_Comment [Automated messa ge] The system which generated this result transmitted reference range: 80.0-99.0 fL. The reference range was not used to interpret this result as normal/abnormal. MONOCYTES (test code = 34916-2) 8.3 % NEUTROPHILS (test code = 01771-7) 55.4 % PLATELET COUNT (test code = 02967-1) 303 K/UL See_Comment [Automated messa ge] The system which generated this result transmitted reference range: 130-400 K/UL. The reference range was not used to interpret this result as normal/abnormal. RBC (test code = 39531-2) 4.39 M/UL See_Comment [Automated messa ge] The system which generated this result transmitted reference range: 3.80-5.40 M/UL. The reference range was not used to interpret this result as normal/abnormal. RDW (test code = 03514-9) 12.6 % See_Comment [Automated messa ge] The system which generated this result transmitted reference range: 11.5-15.0 %. The reference range was not used to interpret this result as normal/abnormal. WBC (test code = 14490-2) 6.3 K/UL See_Comment [Automated messa ge] The system which generated this result transmitted reference range: 3.5-11.0 K/UL. The reference range was not used to interpret this result as normal/abnormal. Hemoglobin [id number] 00:00:00* Test Item Value Reference Range Interpretation Comme nts Hemoglobin A1c (test code = 4548-4) 5.6 4.8-5.6 3D SCR LIZY BILAT W/CAD3D SCR LIZY BILAT W/CADDEXA, BONE DENSITY AXIAL SKELEDEXA, BONE DENSITY AXIAL SKELE Notes Date/Time Note Provider Source 2025-01-31 07:57:02 Patient understands all discharge instructions, ambulates out steady gait, no distress, non labored breathing. Roseann Lanier RN [facility] 2025-01-31 07:49:40 Patient understands all discharge instructions, no distress, non labored breathing, no distress, patient understands all discharge instructions. Patient has all paperwork. [facility] 2025-01-31 07:02:20 [facility] ED Transfer of Care Note. Off-going Physician:esteban Time of Transfer of Care: 7:02 AM Summary: Crystal Augustin is a 69 year old female presenting with chief complaint of palpitations. Pending prior to disposition: Labs and Reevaluation Current interventions: Medications ondansetron (ZOFRAN (PF)) injection 4 mg (4 mg Slow IV Push Given 01/31/25 0642) Results: Labs Reviewed COMP. METABOLIC PANEL (42675) - Abnormal; Notable for the following components: Result Value GLUCOSE 137 (*) TOTAL BILI 1.3 (*) All other components within normal limits D-DIMER - Normal Narrative: This test may be used in conjunction with a clinical pretest probability (PTP) assessment model to exclude venous thromboembolism (VTE) in patients suspected of deep venous thrombosis (DVT) and pulmonary embolism (PE) A D-Dimer value less than 0.50 ?g/ml (FEU) has a negative predicative value of 96 to 100% (95% CI)and 97 to 100% (95% CI) as an aid in the diagnosis of deep vein thrombosis (DVT) and pulmonary embolism when there is low or moderate pretest probability of PE or DVT. D-Dimer values are expressed in initial fibrinogen equivalent units (FEU)" The assay results should be used with other information, including the clinical context, in forming a diagnosis. THYROID STIMULATING HORMONE - Normal TROPONIN I - Normal Narrative: Reference (Normal) Range (defined by the 99th percentile reference limit): <= 0.034 ng/mL Note: Cardiac troponin begins to rise 3-4 hours after the onset of ischemia. Repeat in 4-6 hours if the sample was drawn within 3-4 hours of the onset of the symptom and found normal. Diagnosis of myocardial injury is made with acute changes in cTn concentrations with at least one serial sample above the 99th percentile upper reference limit (URL), taken together with the patient's clinical presentation. Biotin has been reported to cause a negative bias, interpret results relative to patient's use of biotin. N-TERMINAL PRO-BNP - Normal MAGNESIUM - Normal CBC WITH DIFF XR Chest 1 vw Preliminary Result No acute cardiopulmonary process. Preliminary Report Dictated by Resident: Alexandra Avila Procedures: Procedures Additional Notes: Diagnosis/Impression as of 01/31/25 0742 Palpitations Medical Decision Making Labs negative, discharge with prn atarax, follow up cardiology Problems Addressed: Palpitations: complicated acute illness or injury with systemic symptoms Amount and/or Complexity of Data Reviewed Labs: ordered. Decision-making details documented in ED Course. Radiology: ordered. Risk Prescription drug management. Disposition: Discharged Home Social Determinants of Health: None ED Disposition ED Disposition Discharge Condition Stable Comment -- Contact information for follow-up Malissa Up Specialty: FAMILY MEDICINE Relationship: PCP - General [address] [facility] [address] [facility] [address] [address] [facility] 2025-01-31 06:48:36 Report given to Roseann Pierre RN Thanh Arroyo RN [facility] 2025-01-31 06:21:32 C/O dizziness, nausea and feels like her heart is beating fast that started @0400. Holly Menchaca RN [facility] [employer] 2025-01-31 06:14:00 [facility] Emergency Department Note Patient Name: Crystal Augustin Date of : 1955 69 year old female Treatment Room: Room/bed info not found Primary Care Physician: Malissa Up Patient Escorted by: Family [5] Mode of Arrival: Personal means [1] EMS Treatment Prior to ED Arrival: APPLIQUER ZIGZAG treatment: None Travel and Exposure Screening: Symptoms Does patient have any of these symptoms?: (not recorded) Exposure Screening Has patient had contact with someone with a communicable disease in the last month?: (not recorded) Diseases exposed to:: (not recorded) Is Patient ?: (not recorded) Exposure Date: (not recorded) Chief Complaint: Chief Complaint Patient presents with Nausea Dizziness Shakes Palpitations History of Present Illness: History of Present Illness Crystal Augustin is a 69 year old female with numerous medical conditions as listed below who presents to the ED for evaluation of palpitations that began this morning about 04:00 hrs. Denies any chest pain or discomfort. Has mild SOB. No N//V. No syncope. No calf tenderness. Pt has experienced similar symptoms about two weeks ago and was evaluated at [facility] and diagnosed with "GERD" History provided by: Patient and medical records leasing specialist used: No Palpitations Palpitations quality: Fast Onset quality: Sudden Duration: 3 hours Timing: Sporadic Progression: Unchanged Chronicity: Recurrent Context: anxiety Context: not appetite suppressants, not blood loss, not bronchodilators, not caffeine, not dehydration, not hyperventilation, not illicit drugs and not nicotine Relieved by: None tried Worsened by: Nothing Ineffective treatments: None tried Associated symptoms: dizziness and nausea Associated symptoms: no back pain, no chest pain, no chest pressure, no cough, no diaphoresis, no hemoptysis, no leg pain, no lower extremity edema, no malaise/fatigue, no near-syncope, no numbness, no orthopnea, no PND, no shortness of breath, no syncope, no vomiting and no weakness Risk factors: no diabetes mellitus, no heart disease, no hx of atrial fibrillation, no hx of DVT, no hx of PE, no hx of thyroid disease, no hypercoagulable state, no hyperthyroidism, no OTC sinus medications and no stress Past Medical History/Immunizations: Past Medical History: Diagnosis Date 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 Alcohol Use Yes; 0.0 standard drinks of alcohol per week; 0 Standard drinks or equivalent. 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 Negative for diaphoresis and malaise/fatigue. HENT: Negative. Eyes: Negative. Respiratory: Negative. Negative for cough, hemoptysis, shortness of breath, wheezing and stridor. Breasts: Negative. Cardiovascular: Positive for palpitations. Negative for chest pain, orthopnea, leg swelling, syncope, PND and near-syncope. Gastrointestinal: Positive for nausea. Negative for vomiting. Genitourinary: Negative. Musculoskeletal: Negative. Negative for back pain. Skin: Negative. Neurological: Positive for dizziness. Negative for weakness and numbness. Psychiatric/Behavioral: Negative. All other systems reviewed and are negative. Endocrine: Endocrine negative Physical Exam: Physical Exam ED Triage Vitals [01/31/25 0622] Weight 85.7 kg (189 lb) Actual or estimated Actual Height 1.6 m (5' 3") BP (!) 163/83 Pulse 84 Resp 18 Temp 36.8 ?C (98.2 ?F) Temp source Oral SpO2 98 % Measured on Room air Physical Exam Vitals and nursing note reviewed. Constitutional: General: She is not in acute distress. Appearance: Normal appearance. She is well-developed. She is obese. She is not ill-appearing, toxic-appearing or diaphoretic. HENT: Head: Normocephalic and atraumatic. Nose: Nose normal. No congestion or rhinorrhea. Mouth/Throat: Mouth: Mucous membranes are moist. Pharynx: Oropharynx is clear. No oropharyngeal exudate or posterior oropharyngeal erythema. Eyes: General: No scleral icterus. Right eye: No discharge. Left eye: No discharge. Extraocular Movements: Extraocular movements intact. Conjunctiva/sclera: Conjunctivae normal. Pupils: Pupils are equal, round, and reactive to light. Neck: Thyroid: No thyromegaly. Vascular: No carotid bruit. Cardiovascular: Rate and Rhythm: Normal rate and regular rhythm. Pulses: Normal pulses. Heart sounds: Normal heart sounds. No murmur heard. Pulmonary: Effort: Pulmonary effort is normal. No respiratory distress. Breath sounds: Normal breath sounds. No stridor. No wheezing, rhonchi or rales. Chest: Chest wall: No tenderness. Abdominal: General: Bowel sounds are normal. There is no distension. Palpations: Abdomen is soft. There is no mass. Tenderness: There is no abdominal tenderness. There is no right CVA tenderness, left CVA tenderness, guarding or rebound. Musculoskeletal: General: No swelling, tenderness, deformity or signs of injury. Normal range of motion. Cervical back: Normal range of motion and neck supple. No rigidity or tenderness. Right lower leg: No edema. Left lower leg: No edema. Lymphadenopathy: Cervical: No cervical adenopathy. Skin: General: Skin is warm and dry. Capillary Refill: Capillary refill takes less than 2 seconds. Coloration: Skin is not jaundiced or pale. Findings: No bruising, erythema, lesion or rash. Neurological: General: No focal deficit present. Mental Status: She is alert and oriented to person, place, and time. Mental status is at baseline. Cranial Nerves: No cranial nerve deficit. Sensory: No sensory deficit. Motor: No weakness or abnormal muscle tone. Coordination: Coordination normal. Gait: Gait normal. Deep Tendon Reflexes: Reflexes normal. Psychiatric: Behavior: Behavior normal. Thought Content: Thought content normal. Judgment: Judgment normal. Comments: Anxious Mood Radiology: XR Chest 1 vw Preliminary Result EXAM: XR CHEST 1 VW COMPARISON: None available. HISTORY: 69-year-old female presenting with dizziness, nausea, and palpitations. FINDINGS: Lungs: The lung volumes are normal. No focal opacities. No pleural abnormalities are detected. Heart/Mediastinum: The cardiac silhouette appears normal accounting for technique. Aortic arch calcifications Bones and soft tissues: No acute osseous findings are detected. IMPRESSION No acute cardiopulmonary process. Preliminary Report Dictated by Resident: Alexandra Avila Lab Results: Lab Results COMP. METABOLIC PANEL (20016) - Abnormal Result Value Ref Range NA 141 135 - 145 mmol/L K 3.5 3.5 - 5.0 mmol/L CL 103 98 - 108 mmol/L CO2 TOTAL 29 23 - 31 mmol/L AGAP 9 2 - 16 BUN 10 7 - 23 mg/dL GLUCOSE 137 (*) 70 - 110 mg/dL CREATININE 0.71 0.50 - 1.04 mg/dL TOTAL BILI 1.3 (*) 0.1 - 1.1 mg/dL CALCIUM 9.5 8.6 - 10.6 mg/dL T PROTEIN 8.0 6.3 - 8.2 g/dL ALBUMIN 4.7 3.5 - 5.0 g/dL ALK PHOS 94 34 - 122 U/L ALTv 23 5 - 35 U/L AST(SGOT) 26 13 - 40 U/L eGFR 91.6 mL/min/1.73m2 MAGNESIUM - Normal MAGNESIUM 1.8 1.7 - 2.4 mg/dL CBC WITH DIFF WBC 7.65 4.30 - 11.10 10*3/?L RBC 4.35 3.93 - 5.25 10*6/?L HGB 13.8 11.6 - 15.0 g/dL HCT 40.5 35.7 - 45.2 % MCV 93.1 80.6 - 95.5 fL MCH 31.7 25.9 - 32.8 pg MCHC 34.1 31.6 - 35.1 g/dL RDW-SD 43.8 39.0 - 49.9 fL RDW-CV 12.7 12.0 - 15.5 % PLT 280 166 - 358 10*3/?L MPV 10.5 9.5 - 12.9 fL NRBC/100 WBC 0.0 0.0 - 10.0 /100 WBCs NRBC x10 3 <0.01 10*3/?L GRAN MAT (NEUT) % 62.6 % IMM GRAN % 0.40 % LYMPH % 29.5 % MONO % 6.3 % EOS % 0.8 % BASO % 0.4 % GRAN MAT x10 3 (ANC) 4.79 1.88 - 7.09 10*3/uL IMM GRAN x10 3 0.03 0.00 - 0.06 10*3/uL LYMPH x10 3 2.26 1.32 - 3.29 10*3/uL MONO x10 3 0.48 0.33 - 0.92 10*3/uL EOS x10 3 0.06 0.03 - 0.39 10*3/uL BASO x10 3 0.03 0.01 - 0.07 10*3/uL D-DIMER THYROID STIMULATING HORMONE TROPONIN I N-TERMINAL PRO-BNP Orders and Treatments: Orders Placed This Encounter Procedures XR Chest 1 vw D-Dimer Thyroid Stimulating Hormone Cbc with Diff Comp. Metabolic Panel (57545) Troponin I N-Terminal Pro-Bnp Magnesium Orders Placed This Encounter Medications ondansetron (ZOFRAN (PF)) injection 4 mg First Provider Eval: ED Events Date/Time Event User Comments 01/31/25621 Medical Screening Begins CHUCHO ASHER MD -- 01/31/25621 First Provider Evaluation CHUCHO ASHER MD -- ED COURSE Diagnosis/Impression as of 01/31/25 0706 Palpitations Results Procedures: Procedures MDM: Assessment & Plan Medical Decision Making Crystal Augustin is a 69 year old female who presents to the ED with palpitations thatbegan about 4:00 Am today Problems Addressed: Palpitations: acute illness or injury Details: ED evaluation and work-up as documented Labs and imaging pending Amount and/or Complexity of Data Reviewed Labs: ordered. Radiology: ordered. ECG/medicine tests: ordered. 7:05 AM Care turned over to Dr Taylor at shift change pending labs, re-evaluation and for final disposition Flowsheet Documentation: Scoring Tools: No data recorded Disposition/Condition: ED Disposition None Discharge Medications: Patient's Medications START taking these medications No medications on file CONTINUE taking these medications which have NOT CHANGED ACETAMINOPHEN-CODEINE (TYLENOL #3) 300-30 MG TABLET Take 1 Tab by mouth every 4 (four) hours as needed for Pain (scale 1-3). ALBUTEROL 90 MCG/ACTUATION INHALER Inhale 2 Puffs every 4 (four) hours as needed for Wheezing or Shortness of Breath. ATORVASTATIN 20 MG TABLET 1 tablet Orally Once a day for 90 days BENZONATATE 100 MG CAPSULE Take 1 capsule by mouth 3 (three) times daily as needed for Cough. CEPHALEXIN 500 MG CAPSULE Take 1 capsule by mouth 3 (three) times daily. CETIRIZINE 10 MG TABLET Take 1 tablet by mouth in the morning. CYCLOBENZAPRINE (FLEXERIL) 5 MG TABLET Take 1 Tab by mouth 3 (three) times daily as needed for Muscle Spasms. DEXTROMETHORPHAN-GUAIFENESIN 10-100 MG/5 ML SOLUTION Take 5 mL by mouth every 6 (six) hours as needed for Cough. FLUTICASONE PROPIONATE 50 MCG/ACTUATION NASAL SPRAY Use 2 Sprays in each nostril in the morning. IBUPROFEN (MOTRIN) 800 MG TABLET Take 1 Tab by mouth every 6 (six) hours as needed for Pain (scale 1-3). LOSARTAN 50 MG TABLET TAKE 1 TABLET BY MOUTH TWICE DAILY for 90 days NAPROXEN SODIUM (ANAPROX) 220 MG TABLET Take 220 mg by mouth 2 (two) times daily with meals. ONDANSETRON 4 MG DISINTEGRATING TABLET Take 1 tablet by mouth every 12 (twelve) hours as needed for Nausea and Vomiting (N/V). START taking Modified Medications as Prescribed No medications on file STOP taking these medications No medications on file Follow-up: Electronically signed by: Chucho Asher MD 01/31/25705 [facility] 2024-11-16 14:52:33 [facility]2025-03-05 14:52:33 [id number] 14:28:53* Zeke Haynes, MYRON - 10/26/2024 1:30 PM INVESTMENT ADVISOR CHIEF COMPLAINT: ARTHRITIS, DIFFUSE BILATERAL FEET HISTORY [...] hair growth Neurological (+) sensation with 5.07 Morrison Sagrario monofilament to the most distal lower [...] thelegally responsible person has agreed to proceed. STMENT ADVISOR [facility] CentennialDayqxic2788-15-16 14:28:53 [place] [id number] 14:28:53 Diagnosis Abnormal foot finding - Prim cici [id number] 14:28:53 [place] [id number] 14:28:52* Zeke Haynes DPM - 10/26/2024 1:30 PM INVESTMENT ADVISOR CHIEF COMPLAINT: ARTHRITIS, DIFFUSE BILATERAL FEET HISTORY [...] hair growth Neurological (+) sensation with 5.07 Morrison Sagrario monofilament to the most distal lower [...] thelegally responsible person has agreed to proceed. STMENT ADVISOR [facility] CentennialKuvljzg0069-30-37 14:28:52 [facility] CentennialSknnsjp2638-96-27 14:28:52 Diagnosis Abnormal foot finding - Prim cici [facility]ennialWlwxhpz8278-04-14 14:28:52 [place] [id number] 13:59:08Upcoming Encounters Health Maintenance Due Date Last [...] on patient's age to complete this topic [id number] 13:59:08 Diagnosis Abnormal foot finding - Prim cici [id number] 13:59:08 [facility] [id number] 13:59:08* Zeke Kuoleonor, DPM - 10/12/2024 1:40 PM INVESTMENT ADVISOR CHIEF COMPLAINT: ARTHRITIS, DIFFUSE BILATERAL FEET HISTORY [...] hair growth Neurological (+) sensation with 5.07 Morrison Sagrario monofilament to the most distal lower [...] thelegally responsible person has agreed to proceed. [facility]
[2025-02-01 09:33] LABS: Absolute Lymphocytes (CBC) 1.5 K/uL (0.7-4.9); Absolute Monocytes 0.5 K/uL (0.1-1.3); Absolute Neutrophil 6.6 K/uL (1.8-8.0); Basophils % 0.6 % (0-1.3); Eosinophils % 0.2 % (0-4.4); Hematocrit 39.5 % (36.0-45.0); Hemoglobin 13.8 g/dL (12.0-15.0); Lymphocytes % 17.2 % (15.3-44.8); MCH 31.5 pg (27.0-35.0); MCHC 35.1 g/dL (32.0-36.0); MCV 89.9 fL (80-100); MPV 8.7 fL (7.6-11.3); Monocytes % 5.5 % (3.3-12.3); Neutrophils % 76.5 % (41.7-73.7); Nucleated Red Blood Cells % 0.1 % (0-0); Platelets 271 thou/uL (152-406); RBC Red Blood Cell Count 4.39 M/uL (3.86-4.86); Red Cell Distribution Width 13.1 % (12.1-15.2)
[2025-02-01 09:51] LABS: Albumin 3.8 g/dL (3.4-5.0); Anion Gap 10.4 mEq/L (5.0-15.0); Bilirubin Direct 0.3 mg/dL (0-0.2); Bilirubin Indirect, Calculated 0.6 mg/dL (0.2-0.8); Bilirubin Total 0.9 mg/dL (0.2-1.0); Globulin 3.7 g/dL (2.3-3.5); Magnesium 2.1 mg/dL (1.6-2.4); PT Prothrombin Time 12.2 SECONDS (10-13.0); Potassium 3.4 mEq/L (3.5-5.1); Protein, Total 7.5 g/dL (6.4-8.2); Protime INR 1.07; Troponin High Sensitivity 5.5 pg/mL (<58.9)
--- NOTE | 2025-02-01 10:31 | RAD REPORT ---
EXAM: Chest Abdomen Pelvis W Cont CLINICAL INDICATION: Chest and abdominal pain TECHNIQUE: CT chest, abdomen and pelvis was performed, with 100 cc Isovue-300 IV contrast, as per de partment protocol. Axial, sagittal and coronal reconstructions were obtained. One or more of the following dose reduction techniques were used: Automated exposure control, adjustment of the mA and/o r kV according to the patient size, and/or iterative reconstruction. Unless otherwise specified, incidental findings do not require dedicated imaging follow-up. [id number]. Oral contrast not given. This limits evaluation of the bowel. COMPARISON: None FINDINGS: Clear lungs. No mediastinal or hilar lymphadenopathy. No pleural effusion.. No pericardial effusion The liver, spleen, pancreas and adrenals unremarkable. 9 mm low to intermediate density lesion posterior midpole right kidney. 13 mm low to intermediate density lesion medial midpole right kidney. Subcentimeter cyst left kidney. Several small ventral hernias containing fat near midline. Additional 2.3 cm ventral hernia contains a portion of nondilated transverse colon. Hysterectomy. No adnexal mass. Rectum is mildly distended with stool. No evidence of diverticulitis. Normal appendix Mild anterior subluxation L4 on L5. IMPRESSION: Small right renal lesions do not have the appearance of simple cysts. Nonemergent MRI recommended. Rectum is mildly distended with stool Ventral hernia contains a small portion of transverse colon
--- NOTE | 2025-02-01 10:31 | RAD REPORT ---
Procedure: Chest Single View HISTORY: Chest pain COMPARISON: December 2024 FINDINGS: The lungs appear clear of acute infiltrate. No significant pleural effusion noted. The heart is mildly enlarged. IMPRESSION: No acute abnormality is displayed.
--- NOTE | 2025-02-01 12:23 | EDPHYS ---
Physician Documentation [facility] Name: Crystal Augustin Age: 69 yrs Sex: Female : 1955 Arrival Date: 02/01/2025 Time: 08:49 Bed 4 Private MD: ED Physician Bernadine Wilkins HPI: 02/01 09:43 This 69 yrs old Female presents to ER via Ambulatory with complaints of sp3 Weakness, Chest Tightness, Dizziness. 09:43 69-year-old female with history of hypertension presents for recurrent chest pain sp3 radiating now into the abdomen. She was seen here approximately 10 days ago and seen also yesterday at [facility] ER and discharged. She states that her symptoms are continuing to occur which consist of chest pain leading to shaking and also some vomiting. She denies any significant shortness of breath, diarrhea, melena, lower abdominal pain, headache, fever, prolonged immobilization, travel history, known sick contacts, prior DVT or PE, or any other signs or symptoms on ROS at this time.. Historical: - Allergies: 08:55 Codeine; ll1 - PMHx: 08:55 Hypertension; ll1 - PSHx: 08:55 bowel resection; hysterectomy; ll1 - Immunization history:: Adult Immunizations up to date. - Infectious Disease History:: Denies. - Social history:: Smoking status: Patient denies any tobacco usage or history of. ROS: 09:44 Constitutional: Negative for fever, chills, and weight loss, Eyes: Negative for injury, sp3 pain, redness, and discharge, ENT: Negative for injury, pain, and discharge, Neck: Negative for injury, pain, and swelling, Respiratory: Negative for shortness of breath, cough, wheezing, and pleuritic chest pain, Back: Negative for injury and pain, MS/Extremity: Negative for injury and deformity, Skin: Negative for injury, rash, and discoloration, Neuro: Negative for headache, weakness, numbness, tingling, and seizure, Psych: Negative for depression, anxiety, suicide ideation, homicidal ideation, and hallucinations, Allergy/Immunology: Negative for hives, rash, and allergies, Endocrine: Negative for neck swelling, polydipsia, polyuria, polyphagia, and marked weight changes, Hematologic/Lymphatic: Negative for swollen nodes, abnormal bleeding, and unusual bruising, 09:44 All other systems are negative, Exam: 09:44 Constitutional: This is a well developed, well nourished patient who is awake, alert, sp3 and in no acute distress. Head/Face: Normocephalic, atraumatic. Eyes: Pupils equal round and reactive to light, extra-ocular motions intact. Lids and lashes normal. Conjunctiva and sclera are non-icteric and not injected. Cornea within normal limits. Periorbital areas with no swelling, redness, or edema. Neck: Trachea midline, no thyromegaly or masses palpated, and no cervical lymphadenopathy. Supple, full range of motion without nuchal rigidity, or vertebral point tenderness. No Meningismus. Chest/axilla: Normal chest wall appearance and motion. Nontender with no deformity. No lesions are appreciated. Cardiovascular: Regular rate and rhythm with a normal S1 and S2. No gallops, murmurs, or rubs. Normal PMI, no JVD. No pulse deficits. Respiratory: Lungs have equal breath sounds bilaterally, clear to auscultation and percussion. No rales, rhonchi or wheezes noted. No increased work of breathing, no retractions or nasal flaring. Abdomen/GI: Soft, non-tender, with normal bowel sounds. No distension or tympany. No guarding or rebound. No evidence of tenderness throughout. Back: No spinal tenderness. No costovertebral tenderness. Full range of motion. Skin: Warm, dry with normal turgor. Normal color with no rashes, no lesions, and no evidence of cellulitis. MS/ Extremity: Pulses equal, no cyanosis. Neurovascular intact. Full, normal range of motion. Neuro: Awake and alert, GCS 15, oriented to person, place, time, and situation. Cranial nerves II-XII grossly intact. Motor strength 5/5 in all extremities. Sensory grossly intact. Cerebellar exam normal. Normal gait. Psych: Awake, alert, with orientation to person, place and time. Behavior, mood, and affect are within normal limits. 09:44 ECG was reviewed by the Attending Physician. EKG demonstrates normal sinus rhythm at 73 bpm with normal intervals, normal QRS, normal axis, nonspecific diffuse ST/T changes without evidence of acute ischemia. Vital Signs: 09:03 BP 153 / 82; Pulse 80; Resp 17; Temp 98; Pulse Ox 98% on R/A; Weight 85.73 kg; Height 5 ll1 ft. 1 in. ; Pain 8/10; 11:00 BP 149 / 86; Pulse 75; Resp 18; Pulse Ox 99% on R/A; ph 12:00 BP 153 / 85; Pulse 82; Resp 16; Pulse Ox 99% on R/A; ph 13:17 BP 151 / 76; Pulse 74; Resp 18; Pulse Ox 98% on R/A; ph 14:30 BP 143 / 77; Pulse 76; Resp 18; Temp 97.5; Pulse Ox 98% on R/A; ph 09:03 Body Mass Index 35.71 (85.73 kg, 154.94 cm) ll1 09:03 Pain Scale: Adult ll1 MDM: 08:55 Medical Screening Exam initiated sp3 09:45 Data reviewed: vital signs, nurses notes, old medical records, lab test result(s), EKG, sp3 radiologic studies. ED course: 69-year-old female with PMH above now with recurrent chest pain rating to the abdomen coupled with nausea and "shaking". This is patient's third visit to emergency services and second visit here. We will repeat cardiac workup and also add on CT scan of the chest abdomen pelvis to ascertain. I have told patient if workup negative she will likely need to continue outpatient follow-up however we will consider admission if her chest pain continues. Disposition pending workup and patient course.. 12:22 ED course: Full workup negative in ED. Due to recurrent nature and bounce back, we will sp3 admit patient 23-hour observation under inpatient care. Cardiology consultation pending.. 02/01 09:00 Order name: Basic Metabolic Panel; Complete Time: 10:39 sp3 02/01 09:00 Order name: CBC with Diff; Complete Time: 10:39 sp3 02/01 09:00 Order name: LFT's; Complete Time: 10:39 sp3 02/01 09:00 Order name: Magnesium; Complete Time: 10:39 sp3 02/01 09:00 Order name: NT PRO-BNP; Complete Time: 10:39 3 02/01 09:00 Order name: PT-INR; Complete Time: 10:39 3 02/01 09:00 Order name: Troponin HS; Complete Time: 10:39 sp3 02/01 09:00 Order name: UA Rfx Jaxon Cult if indicated sp3 02/01 13:28 Order name: Basic Metabolic Panel EDMS 02/01 13:28 Order name: Basic Metabolic Panel EDMS 02/01 13:28 Order name: Basic Metabolic Panel EDMS 02/01 13:28 Order name: Basic Metabolic Panel EDMS 02/01 13:28 Order name: CBC with Automated Diff EDMS 02/01 13:28 Order name: CBC with Automated Diff EDMS 02/01 13:28 Order name: CBC with Automated Diff EDMS 02/01 13:28 Order name: CBC with Automated Diff EDMS 02/01 13:28 Order name: Hemoglobin A1c EDMS 02/01 13:28 Order name: Hemoglobin A1c EDMS 02/01 13:28 Order name: Lipid Profile EDMS 02/01 13:28 Order name: Lipid Profile EDMS 02/01 13:28 Order name: Magnesium EDMS 02/01 13:28 Order name: Magnesium EDMS 02/01 13:28 Order name: Magnesium EDMS 02/01 13:28 Order name: Magnesium EDMS 02/01 13:28 Order name: Phosphorus EDMS 02/01 13:28 Order name: Phosphorus EDMS 02/01 13:28 Order name: Phosphorus EDMS 02/01 13:28 Order name: Phosphorus EDMS 02/01 13:28 Order name: T4 Free EDMS 02/01 13:28 Order name: T4 Free EDMS 02/01 13:28 Order name: Thyroid Stimulating Hormone EDMS 02/01 13:28 Order name: Thyroid Stimulating Hormone EDMS 02/01 13:28 Order name: Troponin High Sensitivity EDMS 02/01 13:28 Order name: Troponin High Sensitivity EDMS 02/01 13:28 Order name: Troponin High Sensitivity EDMS 02/01 09:00 Order name: XRAY Chest (1 view); Complete Time: 10:39 sp3 02/01 09:16 Order name: CT Chest, Abdomen, Pelvis - W/Contrast; Complete Time: 10:39 sp3 02/01 13:28 Order name: Echo with Doppler EDMS 02/01 09:00 Order name: Cardiac monitoring; Complete Time: 09:23 sp3 02/01 09:00 Order name: EKG - Nurse/Tech; Complete Time: 09:23 sp3 02/01 09:00 Order name: IV Saline Lock; Complete Time: 09:23 sp3 02/01 09:00 Order name: Labs collected and sent; Complete Time: sp3 02/01 09:00 Order name: O2 Per Protocol; Complete Time: sp3 02/01 09:00 Order name: O2 Sat Monitoring; Complete Time: sp3 Administered Medications: No medications were administered Disposition Summary: 02/01/25 12:23 Hospitalization Ordered Notes: Hospitalization Status: Observation sp3 Provider: Cinda Guevara sp3 Location: Telemetry/MedSurg (observation) sp3 Condition: Stable sp3 Problem: an acute exacerbation sp3 Symptoms: have worsened sp3 Bed/Room Type: Standard sp3 Room Assignment: 207(02/01/25 13:44) bd Diagnosis - Chest pain sp3 Forms: - Medication Reconciliation Form sp3 - SBAR form sp3 - Leadership Thank You Letter sp3 Signatures: Dispatcher [employer] EDMS Bela Casanova Patricia, RN RN Jam Ramsey RN RN 1 Bernadine Wilkins MD MD sp3 Corrections: (The following items were deleted from the chart) 09: 09:01 UA Rfx Jaxon Cult if indicated+U.LAB.BRZ ordered. EDMS EDMS 13:44 12:23 sp3 bd
--- NOTE | 2025-02-01 12:23 | ER ---
Nurse's Notes [facility] Name: Crystal Augustin Age: 69 yrs Sex: Female : 1955 Arrival Date: 02/01/2025 Time: 08:49 Bed 4 Private MD: Diagnosis: Chest pain Presentation: 02/01 09:03 Chief complaint: Patient states: Weak and lightheaded continues since her last visit ll1 here 01/23/25. Chest tightness that radiates into back started today. Went to [place] yesterday, diagnosed with anxiety and sent home. Coronavirus screen: Client denies travel out of the [place] in the last 14 days. At this time, the client does not indicate any symptoms associated with coronavirus-19. Ebola Screen: Patient denies travel to an Ebola-affected area in the 21 days before illness onset. No acute neurological deficit is noted. Initial Sepsis Screen: Does the patient meet any 2 criteria? No. Patient's initial sepsis screen is negative. Does the patient have a suspected source of infection? No. Patient's initial sepsis screen is negative. Risk Assessment: Do you want to hurt yourself or someone else? Patient reports no desire to harm self or others. Onset of symptoms was January 23, 2025. 09:03 [facility]: [facility] 09:03 Acuity: RIZWANA 3 ll1 Stroke Activation: Symptom onset > 6 hours Physician: ED Attending; Name: ; Notified At: ; Arrived At: Physician: Mid-Level Provider; Name: ; Notified At: ; Arrived At: Physician: [not used]; Name: ; Notified At: ; Arrived At: Physician: [not used]; Name: ; Notified At: ; Arrived At: Physician: [not used]; Name: ; Notified At: ; Arrived At: Historical: - Allergies: 08:55 Codeine; ll1 - PMHx: 08:55 Hypertension; ll1 - PSHx: 08:55 bowel resection; hysterectomy; ll1 - Immunization history:: Adult Immunizations up to date. - Infectious Disease History:: Denies. - Social history:: Smoking status: Patient denies any tobacco usage or history of. Screenin:00 [facility] ED Fall Risk Assessment (Adult) History of falling in the last 3 months, ph including since admission No falls in past 3 months (0 pts) Confusion or Disorientation No (0 pts) Intoxicated or Sedated No (0 pts) Impaired Gait No (0 pts) Mobility Assist Device Used No (0 pt) Altered Elimination No (0 pt) Score/Fall Risk Level 0 - 2 = Low Risk Oriented to surroundings, Maintained a safe environment, Hourly rounding (assess needs \\T\\ fall precautionary measures) done. Abuse screen: Denies threats or abuse. Denies injuries from another. Nutritional screening: No deficits noted. Tuberculosis screening: No symptoms or risk factors identified. Assessment: 10:00 General: Appears in no apparent distress. comfortable, Behavior is calm, cooperative. ph Pain: Complains of pain in chest Pain radiates to back. Neuro: Level of Consciousness is awake, alert, obeys commands, Oriented to person, place, time, situation, Reports dizziness, weakness. Cardiovascular: Reports chest pain, fatigue, lightheadedness, Chest pain quality is "tightness" radiates back. Respiratory: Airway is patent Respiratory effort is even, unlabored, Respiratory pattern is regular, symmetrical. GI: No signs and/or symptoms were reported involving the gastrointestinal system. Derm: Skin is pink, warm \\T\\ dry. 12:00 Reassessment: Patient appears in no apparent distress at this time. Patient and/or ph family updated on plan of care and expected duration. Pain level reassessed. Patient is alert, oriented x 3, equal unlabored respirations, skin warm/dry/pink. 14:00 Reassessment: Patient appears in no apparent distress at this time. Patient and/or ph family updated on plan of care and expected duration. Pain level reassessed. Patient is alert, oriented x 3, equal unlabored respirations, skin warm/dry/pink. Patient denies pain at this time. Vital Signs: 09:03 BP 153 / 82; Pulse 80; Resp 17; Temp 98; Pulse Ox 98% on R/A; Weight 85.73 kg; Height 5 ll1 ft. 1 in. ; Pain 8/10; 11:00 BP 149 / 86; Pulse 75; Resp 18; Pulse Ox 99% on R/A; ph 12:00 BP 153 / 85; Pulse 82; Resp 16; Pulse Ox 99% on R/A; ph 13:17 BP 151 / 76; Pulse 74; Resp 18; Pulse Ox 98% on R/A; ph 14:30 BP 143 / 77; Pulse 76; Resp 18; Temp 97.5; Pulse Ox 98% on R/A; ph 09:03 Body Mass Index 35.71 (85.73 kg, 154.94 cm) ll1 09:03 Pain Scale: Adult ll1 Vitals: 13:17 Cardiac Rhythm Assessment Sinus rhythm. ph ED Course: 08:53 Patient arrived in ED. al6 08:55 Bernadine Wilkins MD is Attending Physician. sp3 08:55 Arm band placed on Patient placed in an exam room, on a stretcher. ll1 09:05 Triage completed. ll1 09:14 Shelly Reddy, RN is Primary Nurse. ph 09:23 Initial lab(s) drawn, by me, sent to lab. EKG done, by ED staff, reviewed by Bernadine Wilkins MD. Inserted saline lock: 20 gauge in right antecubital area, using aseptic technique. Blood collected. Flushed with 10 mL NS. 09:32 XRAY Chest (1 view) In Process Unspecified. EDMS 10:04 CT Chest, Abdomen, Pelvis - W/Contrast In Process Unspecified. EDMS 12:23 Cinda Guevara MD is Hospitalizing Provider. sp3 13:00 Patient has correct armband on for positive identification. Placed in gown. Bed in low ph position. Call light in reach. aids social worker on. Pulse ox on. NIBP on. 13:18 No provider procedures requiring assistance completed. Patient admitted, IV remains in ph place. Administered Medications: No medications were administered Medication: 13:00 VIS not applicable for this client. ph Outcome: 12:23 Decision to Hospitalize by Provider. sp3 15:12 Admitted to Tele accompanied by [facility], with chart, ph 15:12 Condition: stable 15:12 Instructed on the need for admit, 15:13 Patient left the ED. ph Signatures: Dispatcher [employer] EDMS Shelly Reddy RN RN ph Lewis, Lynsay, RN RN ll1 Izabella Rahman RN RN isabel1 Bernadine Wilkins MD MD sp3 Christi Botello al6
[2025-02-01] MEDS ORDERED: ACETAMINOPHEN 325 MG TABLET PO PRN (13:19)
[2025-02-01] MEDS: ASPIRIN 325 MG TAB PO ONE (13:32)
--- NOTE | 2025-02-01 15:25 | P.HP ---
Certification for Inpatient Patient admitted to: Observation With expected LOS: <2 Midnights <Jailene De Guzman - Last Filed: 02/01/25 15:32> Patient History Date of Service: 02/01/25 Reason for admission: Chest pressure r/o ACS History of Present Illness: Crystal Augustin is a 69 year old female with pmhx HTN, HLD, hypothyroidism, prediabetes who presents to the ED with chief complaint of chest pressure ra diating to her back since December 13 after she had a flu shot. She reports nausea, heart palpitations, shakiness. She was seen in [place] yesterday and after discharge remained concerned and came to our ED. Laboratory evaluation significant for potassium 3.4, GFR 70, serum glucose 25, direct bilirubin 0.3, BNP 169, troponin negative, UA pending. Chest x-ray with no acute findings present. CT abdomen pelvis reports "Small right renal lesions do not have the appearance of simple cysts. Nonemergent MRI recommended. Rectum is mildly distended with stool Ventral hernia contains a small portion of transverse colon." Crystal will be admitted to hospitalist service for further evaluation of chest pressure r/o ACS. - Past Medical/Surgical History -: Hypertension -: Hyperlipidemia -: Hypothyroidism -: Prediabetes -: Bowel resection -: Hysterectomy - Social History Smoking Status: Former smoker Alcohol use: Yes CD- Drugs: No <Jailene De Guzman - Last Filed: 02/01/25 15:32> Date of Service: 02/01/25 <Cinda Guevara - Last Filed: 02/01/25 16:47> Allergies No Known Allergies Allergy (Unverified 02/01/25 13:42) Review of Systems Other: per HPI <Jailene De Guzman - Last Filed: 02/01/25 15:32> Physical Examination - Physical Exam General: Alert, In no apparent distress, Oriented x3 HEENT: Atraumatic, Normocephalic Neck: Supple, 2+ carotid pulse no bruit Respiratory: Clear to auscultation bilaterally, Normal air movement Cardiovascular: Normal pulses, Regular rate/rhythm, Normal S1 S2 Capillary refill: <2 Seconds Gastrointestinal: Normal bowel sounds, Soft and benign, Other (Previous midline incision scarring) Musculoskeletal: No clubbing Integumentary: No breakdown Neurological: Normal speech, Normal tone - Studies Laboratory Data (last 24 hrs) 02/01/25 02/01/25 02/01/25 09:19 09:19 09:19 WBC 8.70 Hgb 13.8 Hct 39.5 Plt Count 271 PT 12.2 INR 1.07 Sodium 141 Potassium 3.4 L BUN 9 Creatinine 0.89 Glucose 155 H Magnesium 2.1 Total Bilirubin 0.9 AST 16 ALT 26 Alkaline Phosphatase 97 <Jailene De Guzman - Last Filed: 02/01/25 15:32> - Studies Laboratory Data (last 24 hrs) 02/01/25 02/01/25 02/01/25 09:19 09:19 09:19 WBC 8.70 Hgb 13.8 Hct 39.5 Plt Count 271 PT 12.2 INR 1.07 Sodium 141 Potassium 3.4 L BUN 9 Creatinine 0.89 Glucose 155 H Magnesium 2.1 Total Bilirubin 0.9 AST 16 ALT 26 Alkaline Phosphatase 97 <Cinda Guevara - Last Filed: 02/01/25 16:47> Assessment and Plan - Plan Assessment and Plan Chest Pressure r/o ACS - EKG: No obvious ST segment changes - Troponin negative, Serial pending - Ordered transthoracic echocardiogram - chest x-ray no acute findings - Consult Cardiology - recommendations appreciated - S/P aspirin 324 mg PO x1 - Start daily baby aspirin and statin - Symptom control with PRN acetaminophen, nitroglycerin, morphine - continuous telemetry - TSH/FreeT4, A1C, lipid panel pending Prediabetes -Monitor serum glucose -Serum glucose 155 -A1c in the a.m. Lesions to right kidney Subcentimeter cyst left kidney -CT abdomen pelvis reports a 9 mm low to intermediate density lesion posterior midpole right kidney, 13 mm low to intermediate density lesion medial midpole right kidney. Subcentimeter cyst left kidney" - Follow-up outpatient with Dr. Evans Ventral hernias - CT abdomen pelvis reports several small ventral hernias containing fat near midline. Additional 2.3 cm ventral hernia contains a portion of nondilated transverse colon. -previous abdominal surgery -Follow up outpatient with Dr. Orellana DVT PPx weight-based Lovenox Full code LOS 24-hour OBS Discharge Plan: Home Plan to discharge in: 24 Hours - Advance Directives Does patient have a Living Will: No Does patient have a Durable POA for Healthcare: No <Jailene De Guzman - Last Filed: 02/01/25 15:32> Physician Review: Patient Assessed, Agree with Above Assessment and Plan <Cinda Guevara - Last Filed: 02/01/25 16:47>
[2025-02-01 15:47] VITALS: O2SAT 98
[2025-02-01 16:23] VITALS: BMI 32.5
[2025-02-01] MEDS: NA CHLORIDE 0.9% 1,000 ML IV SCH (17:39)
[2025-02-01] MEDS: ENOXAPARIN 100 MG/ML SYR SQ SCH (20:05)
[2025-02-01] MEDS: ATORVASTATIN 40 MG TAB PO SCH (20:05)
[2025-02-02] MEDS: HYDRALAZINE HCL 20 MG/ML VIAL IV PRN (02:10)
[2025-02-02] MEDS: ONDANSETRON 4 MG/2 ML VIAL IV PRN (03:39)
[2025-02-02 07:08] LABS: Absolute Basophils 0.1 K/uL (0-0.5); Absolute Eosinophils 0.1 K/uL (0-0.5); Absolute Lymphocytes (CBC) 2.5 K/uL (0.7-4.9); Absolute Monocytes 0.5 K/uL (0.1-1.3); Absolute Neutrophil 4.5 K/uL (1.8-8.0); Basophils % 0.9 % (0-1.3); Eosinophils % 0.8 % (0-4.4); Hematocrit 38.4 % (36.0-45.0); Hemoglobin 13.4 g/dL (12.0-15.0); Lymphocytes % 32.3 % (15.3-44.8); MCH 31.4 pg (27.0-35.0); MCHC 34.9 g/dL (32.0-36.0); MPV 8.7 fL (7.6-11.3); Monocytes % 6.9 % (3.3-12.3); Neutrophils % 59.1 % (41.7-73.7); Nucleated Red Blood Cells % 0.1 % (0-0); Platelets 256 thou/uL (152-406); RBC Red Blood Cell Count 4.26 M/uL (3.86-4.86); Red Cell Distribution Width 13.4 % (12.1-15.2)
[2025-02-02 07:33] LABS: Anion Gap 8.5 mEq/L (5.0-15.0); Magnesium 2.1 mg/dL (1.6-2.4); Phosphorus 2.6 mg/dL (2.5-4.9); Potassium 3.5 mEq/L (3.5-5.1); Thyroid Stimulating Hormone 1.7 uIU/mL (0.358-3.740)
[2025-02-02] MEDS: ASPIRIN EC 81 MG TAB PO SCH (08:20)
[2025-02-02 12:47] VITALS: BP 138/83; TEMP 98
--- NOTE | 2025-02-02 14:47 | P.DS ---
Admission Date: 02/01/25 Discharge Date: 02/02/25 Disposition: ROUTINE DISCHARGE Discharge Condition: GOOD Reason for Admission: Chest pressure r/o ACS Hospital Course: Discharge diagnosis 1. Chest Pressure r/o ACS - EKG: No obvious ST segment changes - Troponin negative, - transthoracic echocardiogram normal per cardiology verbal report - chest x-ray no acute findings - Consulted Cardiology - recommendations appreciated, okay to discharge and outpatient follow-up as per cardiology Prediabetes -Monitor serum glucose Lesions to right kidney Subcentimeter cyst left kidney -CT abdomen pelvis reports a 9 mm low to intermediate density lesion posterior midpole right kidney, 13 mm low to intermediate density lesion medial midpole right kidney. Subcentimeter cyst left kidney" - Follow-up outpatient with Dr. Evans, will need MRI scan as an outpatient Ventral hernias - CT abdomen pelvis reports several small ventral hernias containing fat near midline. Additional 2.3 cm ventral hernia contains a portion of nondilated transverse colon. -previous abdominal surgery -Follow up outpatient with Dr. Orellana Hospital course: 69-year-old patient admitted with chest pain, troponins negative, CT chest no acute findings in the chest, cardiology was consulted, she had an echocardiogram done, result is pending at time of this dictation but as per cardiology echo looks good, they cleared the patient to discharge and follow-up as an outpatient, when I see the patient this morning she is doing well without any acute problems and feels ready to go home, otherwise no other acute issues going on so I am planning to discharge her to go home, follow-up with PCP, cardiology, nephrology and surgery. Subjective: No chest pain or shortness of breath. No nausea or vomiting. No abdominal pain. No obvious bleeding. Looks comfortable in the bed. Objective: General appearance: Alert and comfortable CVS: Normal S1 and S2 Lungs: Clear to auscultation bilaterally Abdomen: Soft, bowel sounds present, no tenderness Extremities: No lower extremity edema Vital Signs/Physical Exam: Temp Pulse Resp BP Pulse Ox 98.0 F 74 18 138/83 97 02/02/25 12:00 02/02/25 12:00 02/02/25 12:00 02/02/25 12:00 02/02/25 12:00 Laboratory Data at Discharge: WBC 7.60 thou/uL (4.3-10.9) 02/02/25 06:48 Hgb 13.4 g/dL (12.0-15.0) 02/02/25 06:48 Hct 38.4 % (36.0-45.0) 02/02/25 06:48 Plt Count 256 thou/uL (152-406) 02/02/25 06:48 PT 12.2 SECONDS (10-13.0) 02/01/25 09:19 INR 1.07 02/01/25 09:19 Sodium 141 mEq/L (136-145) 02/02/25 06:48 Potassium 3.5 mEq/L (3.5-5.1) 02/02/25 06:48 BUN 8 mg/dL (7-18) 02/02/25 06:48 Creatinine 0.69 mg/dL (0.55-1.02) 02/02/25 06:48 Glucose 118 mg/dL (74-106) H 02/02/25 06:48 Phosphorus 2.6 mg/dL (2.5-4.9) 02/02/25 06:48 Magnesium 2.1 mg/dL (1.6-2.4) 02/02/25 06:48 Total Bilirubin 0.9 mg/dL (0.2-1.0) 02/01/25 09:19 AST 16 U/L (15-37) 02/01/25 09:19 ALT 26 U/L (13-56) 02/01/25 09:19 Alkaline Phosphatase 97 U/L (45-117) 02/01/25 09:19 Triglycerides 127 mg/dL (<150) 02/02/25 06:48 Cholesterol 154 mg/dL (<200) 02/02/25 06:48 HDL Cholesterol 94 mg/dL (40-60) H 02/02/25 06:48 Cholesterol/HDL Ratio 1.64 02/02/25 06:48 Home Medications: Atorvastatin Calcium [Lipitor*] 20 mg PO BEDTIME 02/01/25 Losartan Potassium [Cozaar*] 50 mg PO BID 02/01/25 Metoprolol Succinate [Toprol Xl*] 25 mg PO DAILY 02/01/25 Physician Discharge Instructions: Follow up Dr. Orellana, general surgery, for ventral hernia work up. Follow up with Dr. Evans for kidney lesions. Diet: AHA Activity: Ad kamryn Followup: Pasquale Evans DO [ACTIVE - CAN ADMIT] - Moody Yuan MD [ACTIVE - CAN ADMIT] - (f/u in 1 week) Aquiles Orellana MD [ACTIVE - CAN ADMIT] - 1-2 Weeks SUMAN MONTEMAYOR [Primary Care Provider] - 1 Week (f/u in 1 week with CBC and CMP)
--- NOTE | 2025-02-02 17:43 | P.CNS ---
Date of Consult: 02/02/25 Chief Complaint: Chest pressure r/o ACS History of Present Illness: Patient with no significant PMH presented with generalized weakness, palpitations, occasional chest pain with those palpitations, denies syncope, no SOB. Allergies No Known Allergies Allergy (Unverified 02/01/25 13:42) Home medications list reviewed: Yes Home Medications: Atorvastatin Calcium [Lipitor*] 20 mg PO BEDTIME 02/01/25 Losartan Potassium [Cozaar*] 50 mg PO BID 02/01/25 Metoprolol Succinate [Toprol Xl*] 25 mg PO DAILY 02/01/25 - Past Medical/Surgical History -: Hypertension -: Hyperlipidemia -: Hypothyroidism -: Prediabetes -: bowel obstruction -: seizures previously -: bronchitis -: Bowel resection -: Hysterectomy -: tubal ligation -: R knee nerve removal - Social History Alcohol use: Yes CD- Drugs: No Caffeine use: No Place of Residence: Home Review of Systems 10-point ROS is otherwise unremarkable Physical Examination Temp Pulse Resp BP Pulse Ox 98.0 F 74 18 138/83 97 02/02/25 12:00 02/02/25 12:00 02/02/25 12:00 02/02/25 12:00 02/02/25 12:00 General: Alert, In no apparent distress HEENT: Atraumatic, PERRLA, Mucous membr. moist/pink, EOMI, Sclerae nonicteric Neck: Supple, 2+ carotid pulse no bruit, No LAD, Without JVD or thyroid abnormality Respiratory: Clear to auscultation bilaterally, Normal air movement Cardiovascular: Regular rate/rhythm, Normal S1 S2 Gastrointestinal: Normal bowel sounds, No tenderness Musculoskeletal: No tenderness Integumentary: No rashes Neurological: Normal gait, Normal speech, Normal tone, Normal affect Lymphatics: No axilla or inguinal lymphadenopathy - Problems (1) Palpitations Status: Acute Plan: Tele monitor did not show any arrhythmia outpatient follow up with cardiology for an event monitor (2) Chest pain Status: Acute Plan: Echo is normal EKG no significant ST-T wave changes Troponin negative x3 ASA and Lipitor outpatient follow up with cardiology for stress test (3) HLD (hyperlipidemia) Status: Acute Plan: continue Lipitor 40 mg daily
--- NOTE | 2025-02-03 06:41 | ECHO ---
HEIGHT: 5 ft 1 in WEIGHT: 172 lb 9.6 oz DATE OF STUDY: 02/02/[address]: Moody Yuan MD 2-DIMENSIONAL: YES M.MODE: YES DOPPLER: YES COLOR FLOW: YES TDS: PORTABLE: YES DEFINITY: BUBBLE STUDY: DIAGNOSIS: RULE OUT CHEST PAIN CARDIAC HISTORY: CATHERIZATION: NO SURGERY: NO PROSTHETIC VALVE: NO PACEMAKER: NO MEASUREMENTS (cm) DIASTOLIC (NORMALS) SYSTOLIC (NORMALS) IVSd 1.0 (0.6-1.2) LA Diam 2.7 (1.9-4.0) LVEF 60-65% LVIDd 3.8 (3.5-5.7) LVIDs 2.4 (2.0-3.5) %FS 38% LVPWd 1.2 (0.6-1.2) Ao Diam 2.5 (2.0-3.7) 2 DIMENSIONAL ASSESSMENT: RIGHT ATRIUM: NORMAL LEFT ATRIUM: NORMAL RIGHT VENTRICLE: NORMAL LEFT VENTRICLE: NORMAL TRICUSPID VALVE: TRACE TRICUSPID REGURGITATION MITRAL VALVE: NORMAL PULMONIC VALVE: NORMAL AORTIC VALVE: NORMAL PERICARDIAL EFFUSION: NONE AORTIC ROOT: NORMAL LEFT VENTRICULAR WALL MOTION: NORMAL DOPPLER/COLOR FLOW: GRADE I DIASTOLIC DYSFUNCTION COMMENTS: 1. NORMAL LEFT VENTRICULAR SYSTOLIC FUNCTION, EJECTION FRACTION 60-65%, NORMAL WALL MOTION 2. GRADE I DIASTOLIC DYSFUNCTION TECHNOLOGIST: WILLIAM JACKMAN
--- NOTE | 2025-02-07 12:44 | EKG ---
Test Date: 2025-02-01 Test Time: 09:04:38 Engineering And Operations Director: SHEILA MEASUREMENT RESULTS: Intervals: Rate: 73 [place]: 180 QRSD: 80 QT: 398 QTc: 438 [place]: P: 17 [place]: 180 QRS: -6 T: 30 INTERPRETIVE STATEMENTS: Normal sinus rhythm Moderate voltage criteria for LVH, may be normal variant Inferior infarct, age undetermined Anterior infarct, age undetermined Abnormal ECG Compared to ECG 12/23/2024 15:52:33 Left ventricular hypertrophy now present Myocardial infarct finding still present Electronically Signed On 02-07-25 12:31:04 CDT by Moody Yuan
== END 2025-02-02 16:00 | disposition home or self-care (01) ==
LOC: ER 08:49 → ERHOLD 13:19 → 2ND 14:15
PROVIDERS: ADMIT Family Medicine; ATTEND Hospitalist
DX: R07.9 Chest pain, unspecified (principal); I10 Essential (primary) hypertension; E03.9 Hypothyroidism, unspecified; R73.03 Prediabetes; R11.0 Nausea; R00.2 Palpitations; Z87.891 Personal history of nicotine dependence; N28.1 Cyst of kidney, acquired; N28.9 Disorder of kidney and ureter, unspecified; K43.6 Other and unspecified ventral hernia with obstruction, without gangrene
CPT/HCPCS: 93005; 93306; 85025 ×2; 80048 ×2; 36415; 83735 ×2; 84100; 85610; 80061; 82947; 80076; 84443; 83036; 84484 ×3; 84439; 83880; 71260; 74177; 71045; 99285; Q9967; J1650 ×2; J0360; J2405; J7030; G0378